=== PATIENT | female | born 1945 | race Caucasian/White ===

== ENCOUNTER 2023-11-30 16:24 | Emergency (ER) | payer OTHER, SELFPAY ==
[2023-11-30] VITALS (20 sets, daily range): BP systolic 93–150; BP diastolic 56–101; BMI 19.9
--- NOTE | 2023-11-30 17:02 | ED.GENMED ---
History of Present Illness
General
Chief Complaint: Musculo-Skeletal Complaint
Source: patient
Exam Limitations: none
Time Seen by Provider: 11/30/23 16:57
Travel History
Have you had any contact with someone who has COVID-19?: No
Do you have any symptoms of coronavirus? Fever > 100 degrees, chills, cough, shortness of breath, sore throat, loss of taste or smell, muscle aches, or headache?: No
History of Present Illness
History of Present Illness:
See MDM
Past History
Past History
ED Past Medical History: Hypercholesterolemia and Other (Kidney stones)
ED Past Surgical History: Other (Tubal ligation)
Patient has exhibited threatening behavior?: No
Social History
Tobacco: Smoker
Alcohol: None
Personal:
Living: with family
Employment: Retired
Family History
Family History: Other (Noncontributory)
Phy Exam
Physical Exam
Physical Exam:
See MDM
Course
Orders/Labs/Results
Orders:
Orders
11/30/23 16:54
Wrist, Right 3 Views [CR Wrist - Right Min 3 Views] Urgent
Comment:
Reason For Exam: injury
11/30/23 17:01
Oxycodone/Acetaminophen [Percocet 5/325] 1 tablet PO NOW STA
11/30/23 17:24
Propofol [Diprivan] 20 ml .ROUTE .STK-MED
11/30/23 17:35
Wrist, Right 2 Views CR [CR Wrist - Right Min 2 Views] Urgent
Comment:
Reason For Exam: post reduction
11/30/23 18:04
Tramadol HCl [Ultram] 25 mg PO NOW STA
Vital Signs
Initial and Last Documented VS:
Initial Vital Signs
Temp Pulse Resp BP Pulse Ox
97.7 F 65 18 116/56 96
11/30/23 16:26 11/30/23 16:26 11/30/23 16:26 11/30/23 16:26 11/30/23 16:26
Last Documented Vital Signs
Temp Pulse Resp BP Pulse Ox
98.2 F 74 26 93/78 91
11/30/23 18:30 11/30/23 18:25 11/30/23 18:25 11/30/23 18:25 11/30/23 18:25
Procedures
Moderate Sedation
ASA Risk Score: Class II
Chart and allergies reviewed: Yes
Consent for anesthesia obtained: Yes
Time out completed (validating right patient & procedure): Yes
History of difficult intubation: No
Airway free of obstruction: Yes
Patient has a gag reflex: Yes
Patient is able to open mouth: Yes
Patient has no dentures: Yes
Patient has no loose teeth: Yes
Medication administered by Provider during Moderate Sedation: IV Propofol (mg)
Total dose administered: 40
Time drug administered: 17:33
Start Time: 17:33
Stop Time: 17:43
Comment: Time out at 1732
Splinting/Sling Placement
Right Distal Radial Wrist:
Procedure completed by: Jass Hernandez DO
Pre-splint extermity exam: neurovascular intact
Type of splint: sugar-tong
Splint material: fiberglass
Normal distal neurovascular exam?: Yes
Joint/Fracture Reduction
Right Distal Radial Wrist:
Indication for procedure:: Distal radius fracture
Procedure completed by: Jass Hernandez DO
Consent form signed: Yes
Joint reduced: with anesthesia sedation
Injury was: closed
Further treatement: needs further treatment
Post reduction exam: stable
Capillary Refill: normal
Normal distal neurovascular exam?: Yes
Peripheral Pulses: radial (right): 2+
MDM/Problems Addressed
Differential Diagnosis Includes:
HPI and MDM Narrative:
78-year-old female presenting with right wrist pain. Patient left and landed on the right wrist. She denies numbness or tingling. She denies head trauma or head pain
On exam, patient has deformity and swelling to right wrist. It is neurovascular intact.
Physical exam
General: Well appearing and non-toxic
HEENT: protecting airway
Neck: appears supple
CV: No evidence of cyanosis
Resp: No accessory muscle use
Abd: Non-distended
Extremities: Dinner fork deformity to right wrist. Distal extremity neurovascularly intact
Neuro: alert
Psych: Normal affect
Skin: Intact
Problems Addressed including Acute and Chronic Conditions affecting care:
1. Right wrist fracture
Acuity: acute
Prognosis: stable
Details: Will obtain x-ray to assess whether or not patient needs reduction in the emergency department
Patient feeling better after reduction and feels comfortable going home
Updates
Differential Diagnosis (but not limited to): Wrist fracture, contusion
Testing considered: Hand x-ray
Drug therapy (if applicable): OTC meds, please see d/c instruction regarding Rx drugs
Amount and/or Complexity of Data Reviewed
Clinical info obtained from: Patient
External data reviewed: N/A
Labs I independently reviewed (but not limited to): N/A
Radiology: X-ray independently reviewed: Distal radius fracture
Pulse Ox: not hypoxic
EKG independently reviewed: N/A
Humidifier Maintenance Worker: N/A
Critical Care: N/A
Risk of Complication:
Social Determinants of health: Good social support
Discussed with other providers: N/A
Escalation of Care includes Admit/Obs: After being observed in the Emergency Department, pt stable for discharge.
Occasional wrong word or 'sound a like' substitutions may have occurred due to the inherent limitations of voice recognition software. Read the chart carefully and recognize, using context, where substitutions have occurred.
*Critical Care Note
Total Time (30-74mins, 75-104mins- exclusive of procedures): Not Applicable
ED Attending Note
-
Portions of this chart may have been created with voice recognition software.� Occasional wrong word or��sound alike� substitutions may have occurred due to the inherent limitations of voice recognition software.
Discharge Plan
Departure
Patient Disposition: Home (Routine Discharge)
Date of Disposition: 11/30/23
Time of Disposition: 18:44
Patient with high blood pressure during this ER visit?: No
Discharge Problem:
Distal radius fracture, right
Instructions: Wrist Fracture (DC), MODERATE SEDATION ADULT
Prescriptions:
New
tramadol 25 mg tablet
25 mg PO BID PRN (Reason: Pain) Qty: 14 0RF
No Action
simvastatin 20 MG tablet
20 mg PO QPM
tamsulosin 0.4 MG capsule
0.4 mg PO DAILY Qty: 7 0RF
multivitamin 1 EACH tablet
1 ea PO HS
zinc 50 MG tablet
50 mg PO HS
amoxicillin 500 mg tablet
1,000 mg PO BID 5 Days Qty: 20 0RF
azithromycin [Zithromax] 250 mg tablet
250 mg PO DAILY Qty: 6 0RF
Rx Instructions:
500mg po on day 1, then 250mg po qd x 4d
Referrals:
Omar Gamino MD [Active] -
Jona Mixon DO [Family Provider] -
Activity Restrictions/Additional Instructions:
Please return for any worsening symptoms.
You may return at any time if you have further concerns.
Please follow up with the orthopedistat the first available appointment, preferably this week.
You were given a prescription for narcotics. If you require this pain medicine, please take a daily [id number] stool softener to avoid constipation.
Thank you for choosing [facility].
Interventions
Interventions:
*Risk Screen - Suicide Last Done: 11/30/23 17:26
*General Assessment Last Done: 11/30/23 17:26
*Neglect/Abuse Screening Last Done: 11/30/23 17:26
ED-Musculoskeletal Assessment Last Done: 11/30/23 17:25
[2023-11-30] MEDS: ULTRAM 25 MG PO (18:24)
== END 2023-11-30 18:52 | disposition home or self-care (01) ==
LOC: EMR 16:24
PROVIDERS: EMERGENCY PHYSICIAN Student in an Organized Health Care Education/Training Program; FAMILY PHYSICIAN Family Medicine
DX: S52.501A Unspecified fracture of the lower end of right radius, initial encounter for closed fracture (principal); W19.XXXA Unspecified fall, initial encounter; F17.200 Nicotine dependence, unspecified, uncomplicated
CPT/HCPCS: 25605; 99285; 99152; 73100; 73110

== ENCOUNTER 2023-12-07 06:11 | Day surgery (SDC) | payer OTHER, SELFPAY ==
[2023-12-03 14:29] LABS: Hematocrit 42.5 % (37.0-47.0); Hemoglobin 14.8 g/dL (12.0-16.0); Mean Corp Hgb Conc. 34.8 g/dL (33.0-37.0); Mean Corpuscular Hgb 29.8 pg (27.0-31.0); Mean Corpuscular Volume 85.7 fL (81.0-99.0); Mean Platelet Volume 10.2 fL (7.4-10.4); Platelet Count 273 10^3/uL (130-400); Red Blood Cell Count 4.96 10^6/uL (4.20-5.40); Red Cell Dist. Width 13.5 % (11.5-14.5)
[2023-12-03 14:41] LABS: Blood Urea Nitrogen 15 mg/dl (7-17); Calcium 9.2 mg/dl (8.4-10.2); Carbon Dioxide 26 mmol/L (22-30); Chloride 106 mmol/L (98-107); Glucose 109 mg/dl (70-99); Potassium 4.2 mmol/L (3.5-5.1); Sodium 137 mmol/L (135-145); eGFR > 60.00
[2023-12-03 14:55] VITALS: BMI 19.0
[2023-12-07] VITALS (16 sets, daily range): BP systolic 134–153; BP diastolic 70–81; BMI 19.0
[2023-12-07] MEDS: NORMOSOL-R 1000 IV (07:11)
[2023-12-07] MEDS: CELEBREX 200 MG PO (07:11)
[2023-12-07] MEDS: TYLENOL 1000 MG PO (07:11)
[2023-12-07] MEDS: DILAUDID 0.25 MG IV ×2 (09:07→09:58)
== END 2023-12-07 12:15 | disposition home or self-care (01) ==
LOC: SDS 06:11
PROVIDERS: ATTENDING PHYSICIAN Orthopaedic Surgery; FAMILY PHYSICIAN Family Medicine
DX: S52.571A Other intraarticular fracture of lower end of right radius, initial encounter for closed fracture (principal); W19.XXXA Unspecified fall, initial encounter
CPT/HCPCS: 25515; 36415; 80048; 85027; 93005; C1713

== ENCOUNTER → 2024-02-14 14:16 | Outpatient (REF) | payer OTHER, SELFPAY | LOC: HWRAD 14:16 | PROVIDERS: ATTENDING PHYSICIAN Family Medicine | DX: M81.0 Age-related osteoporosis without current pathological fracture (principal) | CPT/HCPCS: 77080 ==

== ENCOUNTER → 2024-03-14 15:17 | Outpatient (REF) | payer OTHER, SELFPAY | LOC: HWRAD 15:17 | PROVIDERS: ATTENDING PHYSICIAN Nurse Practitioner Adult Health; FAMILY PHYSICIAN Family Medicine | DX: R91.1 Solitary pulmonary nodule (principal) | CPT/HCPCS: 71250 ==

== ENCOUNTER 2024-05-25 10:18 | Inpatient (IN) | payer OTHER, SELFPAY ==
[2024-05-24 11:17] VITALS: BP 129/67
--- NOTE | 2024-05-24 12:21 | ED.GENMED ---
History of Present Illness
General
Chief Complaint: Throat Problem
Source: patient
Exam Limitations: none
Time Seen by Provider: 05/24/24 11:48
Nursing documentation reviewed up to this point in time: agreed with
History of Present Illness
History of Present Illness:
79 yo female w h/o COPD, HLD, presents with two months of 'sinus problems' and sore throat. Had been on two regimens of antibiotics and steroids (last doses today and yesterday) with some improvement of the sinus symptoms but sore throat and
'feeling like there's a lump in there' pointing to sternal notch persists. Also voice is hoarse due to this problem. States she's had neg throat culture for strep.
Denies f/c/n/v/d/c. Has been able to swallow but sometimes has to spit it up for difficulty swallowing. Denies SOB, CP, abdominal pain.
Past History
Past History
ED Past Medical History: COPD, Hypercholesterolemia and Other (Kidney stones)
ED Past Surgical History: Orthopedic and Other (Tubal ligation)
Patient has exhibited threatening behavior?: No
Social History
Tobacco: Smoker
Alcohol: None
Personal:
Living: with family
Employment: Retired
Family History
Family History: Other (Noncontributory)
Review of Systems
Review of Systems
Allergies reviewed?: Yes
All Other Systems: ROS reviewed and negative except as documented in HPI and ROS
Constitutional: Denies fever or chills
EENT: Reports sore throat
Respiratory: Denies cough or trouble breathing
Cardiac: Denies chest pain
ABD/GI: Denies abdominal pain, nausea, vomiting or diarrhea
Musculoskeletal: Reports no symptoms
Skin: Reports no symptoms
Neurological: Reports no symptoms
Phy Exam
Physical Exam
Physical Exam:
GENERAL: No acute distress. A&Ox3.
CONSTITUTIONAL: Afebrile.
EYES: PERRL, conjunctivae normal
Neck: Supple, no palpable masses
ENMT: moist mucus membranes, Pharynx nl, speaking in hoarse voice. Swallowing well.
RESPIRATORY: Regular respirations, nonlabored, lungs clear.
CARDIOVASCULAR: Regular rate and rhythm, no murmurs, no rubs.
GI: Soft, nontender
MUSCULOSKELETAL: Moves with ease. Well perfused.
SKIN: Warm, dry, pink
PSYCH: Normal mood and affect. Well kept, interactive and appropriate
NEUROLOGIC: Awake, alert and oriented. No focal neurological deficits
Course
Orders/Labs/Results
Orders:
Orders
05/24/24
DIETARY CONSULT Routine
Reason for Consult: wt loss
05/24/24 12:24
Complete Blood Count/With Diff Urgent
Comprehensive Metabolic Panel Urgent
05/24/24 13:34
RF Esophagus-Double Contrast Urgent
Comment:
Reason For Exam: difficulty and pain with swallowing
05/24/24 14:00
0.9% Sodium Chloride 500 ml [Nss] 500 ml IV BOLUS
05/24/24 15:10
CT Neck With Iv Contrast Urgent
Comment:
Reason For Exam: 'lump' in throat at sternal notch, diff swallowing
05/24/24 17:23
ENT CONSULT Urgent
Consulting Provider: Jarrett Montalvo
Was physician already notified: Yes
Reason for Consult: larygeal area mass, potential airway compromise
05/24/24 17:49
Admit/Transfer Patient As Directed
Co-Sign Provider:
Level of Care: Observation services
Assign to:: Medical/Surgical
Physician / Group: aleksandra
Diagnosis: laryngeal mass
Code Status As Directed
Resuscitation Status: Full Code
PRN Pain Medication Management As Directed
May give lesser potent ordered pain med per pt: Yes
preference::
Protocol:: Medication orders for pain may be administered in a
manner that supports deferring to patient preference
when the pt is:
- Requesting an ordered lesser potent pain medication.
Least to most potent pain medications are defined
as: acetaminophen < NSAID < tramadol < opioids
(morphine, oxycodone, hydromorphone).
- Requesting a lesser dose of the same medication IF
ORDERED.
- Requesting a less intrusive route of administration
if both routes are prescribed by the provider (PO <
IV).
05/24/24 19:34
Calcium Carbonate [Oscal Bam 500] 500 mg PO QPM
05/24/24 19:34
Activity As Directed
Activity Level: As Tolerated
Vital Signs As Directed
Frequency: Per unit guidelines
DX Deep Vein Thrombosis Video Routine
05/24/24 19:45
Atorvastatin [Lipitor] 10 mg PO QPM
05/24/24 20:00
Flush (0.9% Sodium Chloride) [Flush (Nss)] See Dose Instructions IV PER PROTOCOL
Heparin 5,000 units SC Q12
Zinc Sulfate 220 mg PO QPM
05/24/24 23:59
Jonathan- Npo [Jonathan- Nothing by mouth] As Directed
Comment: NPO after midnight
05/25/24 Breakfast
NPO
Allow oral meds: Yes
Allow clear liquids: Sips of Clears
05/25/24 08:03
Complete Blood Count/With Diff IN AM
Comprehensive Metabolic Panel IN AM
05/25/24 Lunch
NPO
Allow oral meds: No
Allow clear liquids: No
NPO with Ice Chips: No
05/25/24 10:31
PT/INR [Prothrombin Time] Urgent
Is patient on Coumadin/Warfarin?: No
Abnormal Lab Results
05/24/24 05/25/24
12:24 08:03
WBC 20.1 H 10^3/uL 14.9 H 10^3/uL
(4.8-10.8) (4.8-10.8)
RBC 5.45 H 10^6/uL
(4.20-5.40)
Hgb 16.3 H g/dL
(12.0-16.0)
Hct 47.5 H %
(37.0-47.0)
Abs Immat Gran (auto) 0.3 H 10^3/uL 0.3 H 10^3/uL
(0-0.05) (0-0.05)
Absolute Neuts (auto) 17.3 H 10^3/uL 9.6 H 10^3/uL
(1.4-6.5) (1.4-6.5)
Absolute Lymphs (auto) 3.7 H 10^3/uL
(1.2-3.4)
Absolute Monos (auto) 0.8 H 10^3/uL 1.2 H 10^3/uL
(0.1-0.6) (0.1-0.6)
Immature Gran % 1.6 H % 1.8 H %
(0-0.5) (0-0.5)
Neutrophils % 86.2 H %
(42.2-75.2)
Lymphocytes % 7.9 L %
(20.5-51.1)
Carbon Dioxide 31 H mmol/L 31 H mmol/L
(22-30) (22-30)
BUN 27 H mg/dl 18 H mg/dl
(7-17) (7-17)
Glucose 131 H mg/dl
(70-99)
Total Protein 6.0 L g/dl 5.6 L g/dl
(6.3-8.2) (6.3-8.2)
Albumin 3.4 L g/dl
(3.5-5.0)
05/25/24 08:03
05/25/24 08:03
Vital Signs
Initial and Last Documented VS:
Initial Vital Signs
Temp Pulse Resp BP Pulse Ox
98.4 F 52 18 129/67 96
05/24/24 11:17 05/24/24 11:17 05/24/24 11:17 05/24/24 11:17 05/24/24 11:17
Last Documented Vital Signs
Temp Pulse Resp BP Pulse Ox
98.8 F 87 19 141/95 97
05/25/24 19:34 05/25/24 23:00 05/25/24 23:00 05/25/24 23:00 05/25/24 23:00
MDM/Problems Addressed
Differential Diagnosis Includes:
esophageal stricture, mass, trachiitis
MDM/Problems Addressed:
79 yo female w h/o COPD, HLD, presents with two months of 'sinus problems' and sore throat. Had been on two regimens of antibiotics and steroids (last doses today and yesterday) with some improvement of the sinus symptoms but sore throat and
'feeling like there's a lump in there' pointing to sternal notch persists. Also voice is hoarse due to this problem. States she's had neg throat culture for strep.
Denies f/c/n/v/d/c. Has been able to swallow but sometimes has to spit it up for difficulty swallowing. Denies SOB, CP, abdominal pain.
NAD
Voice hoarse, swallowing well, pharynx normal
CBC: WBC 20.0 most likely due to steroid use, just finished her second regimen today, also due to dehydration (has no infectious symptoms and finished second regimen of antibiotics yesterday)
CMP: BUN 27
IV fluids ordered
3:15 p.m.
Esophagram radiology report read: IMPRESSION: Tracheal aspiration with cough. Video swallow study performed by speech pathology is recommended. Unremarkable evaluation of the esophagus.
Awaiting Ct scan w IV contrast to assess for neck mass, retropharyngeal abscess
Pt informed. She is stable, appears comfortable and OK with plan
5:[address] neck w IV contrast: Phone call from Radiology Dr. Pollard saying pt has a 2.6 cm mass in laryngeal area. At risk for airway compromise.
Hospitalist notified of admission, ENT also notified and ENT consult in.
Pt notified, continues with no airway compromise. Was appreciative and thankful for the care.
*Critical Care Note
Total Time (30-74mins, 75-104mins- exclusive of procedures): Not Applicable
ED Attending Note
-
Portions of this chart may have been created with voice recognition software.� Occasional wrong word or��sound alike� substitutions may have occurred due to the inherent limitations of voice recognition software.
Discharge Plan
Departure
Patient Disposition: Admit
Date of Disposition: 05/24/24
Time of Disposition: 17:16
Admit to: Med/Surg
Presentation/result/management discussed w/ accepting MD/DO: Hospitalist
Condition: Good
Discharge Problem:
Dysphagia, Laryngeal mass
Interventions
Interventions:
*General Assessment Last Done: 05/24/24 11:25
*Neglect/Abuse Screening Last Done: 05/24/24 11:25
ED- Fall Risk Assessment Last Done: 05/24/24 12:29
*Nursing Disposition Last Done: 05/24/24 19:30
ED-EENT Assessment Last Done: 05/24/24 12:29
ED- Pulmonary Assessment Last Done: 05/24/24 12:29
Discharge Date and Time
Discharge Date/Time: 05/24/24 19:30
[2024-05-24 12:23] VITALS: BP 122/79
[2024-05-24 12:42] LABS: % Basophils 0.4 % (0-2); % Eosinophils 0.1 % (0-6); % Immature Granulocytes 1.6 % (0-0.5); % Lymphocytes 7.9 % (20.5-51.1); % Monocytes 3.8 % (1.7-9.3); % Neutrophils 86.2 % (42.2-75.2); Absolute Basophils 0.1 10^3/uL (0-0.2); Absolute Immature Granulocytes 0.3 10^3/uL (0-0.05); Absolute Lymphocytes 1.6 10^3/uL (1.2-3.4); Absolute Monocytes 0.8 10^3/uL (0.1-0.6); Absolute Neutrophils 17.3 10^3/uL (1.4-6.5); Hematocrit 47.5 % (37.0-47.0); Hemoglobin 16.3 g/dL (12.0-16.0); Mean Corp Hgb Conc. 34.3 g/dL (33.0-37.0); Mean Corpuscular Hgb 29.9 pg (27.0-31.0); Mean Corpuscular Volume 87.2 fL (81.0-99.0); Mean Platelet Volume 9.6 fL (7.4-10.4); Nucleated Red Blood Cells % 0 %; Platelet Count 354 10^3/uL (130-400); Red Blood Cell Count 5.45 10^6/uL (4.20-5.40); Red Cell Dist. Width 14.5 % (11.5-14.5); White Blood Cell Count 20.1 10^3/uL (4.8-10.8)
[2024-05-24 13:00] VITALS: BP 123/81
[2024-05-24 13:04] LABS: ALT (SGPT) 16 U/L (0-35); AST (SGOT) 18 U/L (14-36); Albumin 3.7 g/dl (3.5-5.0); Alkaline Phosphatase 72 U/L (38-126); Blood Urea Nitrogen 27 mg/dl (7-17); Calcium 9.8 mg/dl (8.4-10.2); Carbon Dioxide 31 mmol/L (22-30); Chloride 100 mmol/L (98-107); Glucose 131 mg/dl (70-99); Potassium 4.2 mmol/L (3.5-5.1); Sodium 136 mmol/L (135-145); Total Bilirubin 0.6 mg/dl (0.2-1.3); eGFR > 60.00
[2024-05-24] MEDS: NSS 500 IV (14:30)
--- NOTE | 2024-05-24 17:51 | HPS.HSE ---
Family Physician
-
Family Physician: Jona Mixon
Chief Complaint
-
sore throat
History of Present Illness
79-year-old female with past medical history of COPD, hyperlipidemia, nephrolithiasis presenting with 2 months of sinus problems and sore throat. She was initially having nasal discharge and sinus pressure and sore throat. Patient has been treated
with 2 courses of antibiotics and steroids and she last finished antibiotic today and steroid yesterday with improvement in the sinus symptoms. However she still feels the throat is sore and there is a lump in the throat. She also complains of
voice hoarseness. She is having some mild shortness of breath. She is having some difficulty swallowing but able to eat and drink but sometimes spitting up. She denies any fevers or chills, nausea vomiting or diarrhea or constipation.
She smokes 1 pack of cigarettes per day for 60 years and quit 2 weeks ago. She denies alcohol use.
Medical History
Past Medical History
Past Medical History: Reports Other (COPD, hyperlipidemia, nephrolithiasis)
Past Surgical History: Reports Other (Orthopedic and Other (Tubal ligation))
Social History
Tobacco: Former Smoker
Alcohol: None
Drug: None
Family History
Family History: Not pertinent
Allergies / Home Medications
Allergies reflects when Allergies were last updated in [employer].
Home Medications with original date entered in [employer]
Allergy/Medication List:
Allergies
Allergy/AdvReac Type Severity Reaction Status Date / Time
No Known Allergies Allergy Verified 05/24/24 11:23
Home Medications
simvastatin 20 mg tablet 20 mg PO QPM 01/17/19
calcium carbonate 500 mg PO QPM 05/24/24
zinc sulfate 50 mg zinc (220 mg) tablet 50 mg PO QPM 05/24/24
Review of Systems
-
History Source: Patient
A 12 point ROS was completed and negative except as noted: Yes
Constitutional: Reports No Symptoms
EENT: Reports No Symptoms and Other
Respiratory: Reports No Symptoms
Cardiac: Reports No Symptoms
Abdomen/GI: Reports No Symptoms
: Reports No Symptoms
Musculoskeletal: Reports No Symptoms
Skin: Reports No Symptoms
Neurological: Reports No Symptoms
Endocrine: Reports No Symptoms
Hematologic/Lymphatic: Reports No Symptoms
Psych: Reports No Symptoms
Physical Exam
Vital Signs
Vital Signs
Temp Pulse Resp BP Pulse Ox
98.4 F 52 18 123/81 95
05/24/24 11:17 05/24/24 11:17 05/24/24 11:17 05/24/24 13:00 05/24/24 13:45
Physical Exam
General: Well Developed, Well Nourished and No Apparent Distress
HEENT: NormoCephalic, Moist mucous membranes, Atraumatic and Other (neck mass )
Respiratory: Clear
Cardiac: S1/S2 and Regular Rhythm; No Murmur or Rub
GI: Soft, Non Tender, Non Distended and Normal Bowel Sounds; No Organomegaly
Rectal: Deferred by Provider
Musculoskeletal: No Clubbing, No Cyanosis and No Edema
Skin: No Rash
Neuro: Nonfocal/grossly intact
Laboratory Results
-
05/24/24 12:24
05/24/24 12:24
Laboratory Results
Total Bilirubin 0.6 mg/dl (0.2-1.3) 05/24/24 12:24
AST 18 U/L (14-36) 05/24/24 12:24
ALT 16 U/L (0-35) 05/24/24 12:24
Alkaline Phosphatase 72 U/L (38-126) 05/24/24 12:24
Data Reviewed
-
Lab Data: Labs Reviewed by me
Impression/Plan
-
IMPRESSION:
PLAN:
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
-CT neck shows 2.5 cm soft tissue mass extending caudally from the larynx with encroachment upon and narrowing of the upper trachea/tracheal narrowing and extending between the right and left lobes of the thyroid
-Esophagus x-ray is unremarkable
-ENT consulted
-Clear liquid diet for now
# Resolved sinusitis
-No sinus symptoms at this time
# History of significant smoking
-Quit smoking 2 weeks ago
COPD
Hyperlipidemia
-Continue statin
History of nephrolithiasis
Osteoporosis
Full code
DVT prophylaxis heparin
Clear liquid diet
[2024-05-24 19:30] VITALS: BP 125/82
--- NOTE | 2024-05-24 19:39 | PTCARENOTE ---
Pt received from ED to [facility]-. Pt oriented to room and call holder.
[2024-05-24 19:50] VITALS: BP 151/77
--- NOTE | 2024-05-24 20:08 | CON.MD ---
Consultation - Medical
-
Chief complaint: stridor and dysphagia
History of present illness: This patient is an 79-year-old woman, former smoker, who presents with a 2-month history of stridor and dysphagia. The stridor is intermittent. She has had significant difficulty swallowing and has lost a good deal of
weight. She is not in any respiratory distress currently. She had a CT scan of the neck in the emergency room and was found to have what appears to be a 2.5 cm tumor in her pharynx or trachea. It may also originate in the larynx. The patient
otherwise has a fairly negative past medical history. She has hypercholesterolemia. I was asked to see her with regards to her stridor and dysphagia.
Past medical history:
Medical problems: Stridor, dysphagia, hypercholesterolemia, laryngeal mass
Allergies: No known drug allergies
Medications: Calcium carbonate 500 mg p.o. every afternoon, simvastatin 20 mg p.o. every afternoon, zinc sulfate 50 mg p.o. every afternoon
Hospitalizations: The patient is currently hospitalized for dysphagia and stridor with an apparent laryngeal, hypopharyngeal or esophageal tumor
Family history: Asked and is noncontributory
Social history: The patient is a former smoker
Review of systems: Positive for dysphagia, negative for chest pain, negative for abdominal pain, positive for stridor, negative for respiratory distress
Physical examination:
Head: Atraumatic normocephalic
Eyes: Extraocular movements are intact, pupils are equal and reactive to light
Nose: Deviated septum but otherwise clear
Oral cavity: No significant mucosal abnormalities noted
Neck: Supple without adenopathy
Ears: Clear
Cranial nerves: 2 through 12 are intact
Salivary glands: Normal to palpation without evidence of infection
Thyroid gland: Normal to palpation
Procedure: Flexible laryngoscopy was used to evaluate the hypopharynx and larynx: Examination was performed with a flexible laryngoscope. The patient may have some narrowing of the upper part of the trachea. There is no obvious tumor although
there is some fullness in the base of tongue on the right side. Vocal cord motion is normal. No bleeding was seen.
Impression: This 79-year-old former smoker presents with a 2-month history, at least, of dysphagia with significant weight loss. She has also had stridor but has no respiratory distress.
Plan: I spoke with the patient that she appears to have a tumor in a rather delicate area as it is causing both airway compromise and difficulty swallowing. This probably represents a cancer. She will require tracheotomy to secure her airway and
direct laryngoscopy and esophagoscopy with biopsies. She understands there is a risk of loss of airway, chipped or broken teeth, esophageal perforation and need for further treatment. She understands we will be able to determine her treatment
until we know the extent of the tumor, and the pathology.
[2024-05-24] MEDS: LIPITOR 10 MG PO (20:26)
[2024-05-24] MEDS: OSCAL CAL 500 500 MG PO (20:26)
[2024-05-24] MEDS: HEPARIN 5000 UNITS SC (20:26)
[2024-05-24] MEDS: ZINC SULFATE 220 MG PO (20:26)
[2024-05-24 20:27] VITALS: BMI 17.1
[2024-05-24 23:02] VITALS: BP 117/58
[2024-05-25] VITALS (30 sets, daily range): BP systolic 113–159; BP diastolic 75–97; BMI 17.1
[2024-05-25 08:30] LABS: % Basophils 0.5 % (0-2); % Eosinophils 0.7 % (0-6); % Immature Granulocytes 1.8 % (0-0.5); % Lymphocytes 24.8 % (20.5-51.1); % Monocytes 7.7 % (1.7-9.3); % Neutrophils 64.5 % (42.2-75.2); Absolute Basophils 0.1 10^3/uL (0-0.2); Absolute Eosinophils 0.1 10^3/uL (0-0.7); Absolute Immature Granulocytes 0.3 10^3/uL (0-0.05); Absolute Lymphocytes 3.7 10^3/uL (1.2-3.4); Absolute Monocytes 1.2 10^3/uL (0.1-0.6); Absolute Neutrophils 9.6 10^3/uL (1.4-6.5); Hematocrit 43.6 % (37.0-47.0); Hemoglobin 14.9 g/dL (12.0-16.0); Mean Corp Hgb Conc. 34.2 g/dL (33.0-37.0); Mean Corpuscular Volume 87.9 fL (81.0-99.0); Mean Platelet Volume 9.6 fL (7.4-10.4); Nucleated Red Blood Cells % 0 %; Platelet Count 352 10^3/uL (130-400); Red Blood Cell Count 4.96 10^6/uL (4.20-5.40); Red Cell Dist. Width 14.5 % (11.5-14.5); White Blood Cell Count 14.9 10^3/uL (4.8-10.8)
[2024-05-25] MEDS: HEPARIN 5000 UNITS SC ×2 (08:31→21:04)
[2024-05-25 09:09] LABS: ALT (SGPT) 23 U/L (0-35); AST (SGOT) 29 U/L (14-36); Albumin 3.4 g/dl (3.5-5.0); Alkaline Phosphatase 76 U/L (38-126); Blood Urea Nitrogen 18 mg/dl (7-17); Calcium 9.5 mg/dl (8.4-10.2); Carbon Dioxide 31 mmol/L (22-30); Chloride 101 mmol/L (98-107); Estimated Creatinine Clearance 47 ml/min; Glucose 92 mg/dl (70-99); Potassium 4.2 mmol/L (3.5-5.1); Sodium 135 mmol/L (135-145); Total Bilirubin 0.5 mg/dl (0.2-1.3); Total Protein 5.6 g/dl (6.3-8.2); eGFR > 60.00
--- NOTE | 2024-05-25 10:19 | W.PN.HOSP.TC ---
Today's Communication/Plan
-
N.p.o.
Add DuoNebs as needed
Assessment / Plan
Assessment / Plan
Gen-AAOx3, NAD
HEENT-NC, AT, anicteric, clear oral mm
Neck-supple
CV-reg, no M, +S1/S2
Lungs-clear B/L
Abd-soft, NT, ND
Ext-no edema
Musculoskeletal-no cyanosis, clubbing
Skin-warm and dry
Neuro-grossly non-focal
Psych-calm, cooperative
Laryngeal mass -presentation with stridor, dysphagia, weight loss. Highly suspicious for malignancy. Appreciate ENT input. Keep n.p.o. for OR today for anticipated tracheotomy, direct laryngoscopy, esophagoscopy with biopsies.
CT of the neck confirms a 2.5 cm soft tissue mass extending caudally from the larynx with encroachment upon and narrowing of the upper trachea.
Recently treated with several courses of steroids and antibiotics by her primary care doctor without improvement.
.
Tobacco dependence -[id number] smoking history. Apparently quit 2 weeks ago.
COPD without exacerbation -she has not refilled her inhalers. Add DuoNebs as needed. Not on home oxygen.
Hyperlipidemia
Hx nephrolithiasis
Osteoporosis
Full code
Anticipated Discharge: > 48 hours
Subjective/Interval History
-
Date of Service: May 25, 2024
Patient seen and examined. Complaining of stridor. Sleeping when I walked in.
Objective Data
-
Labs:
Laboratory Results
05/25/24 05/25/24
08:03 10:13
WBC 14.9 H
Hgb 14.9
Hct 43.6
Plt Count 352
PT Pending
INR Pending
Sodium 135
Potassium 4.2
Chloride 101
Carbon Dioxide 31 H
BUN 18 H
Creatinine 0.6
Glucose 92
Calcium 9.5
Total Bilirubin 0.5
AST 29
ALT 23
Alkaline Phosphatase 76
Vital Signs:
Vital Signs
Temp Pulse Resp BP Pulse Ox
97.9 F 78 18 113/75 96
05/25/24 07:30 05/25/24 07:30 05/25/24 07:30 05/25/24 07:30 05/25/24 07:30
I&O
05/24/24 05/25/24 05/26/24
06:59 06:59 06:59
Intake Total 240 / 240
Balance 240 / 240
Review of Systems
-
History Source: Patient
All other systems: Reviewed and negative
[2024-05-25 11:05] LABS: INR 0.89
--- NOTE | 2024-05-25 16:20 | RESPNOTE ---
inner cannula placed at this time.
patient on 28% TC- SPO2- 98%, HR 85, RR 20.
patient currently coughing up some clear sputum with some americo red blood- pt is s/p new trach.
additional 6 shiley and inner cannula ordered from [facility].
--- NOTE | 2024-05-25 16:45 | PTCARENOTE ---
Received pt @ 1600 from OR s/p new tracheostomy. Pt. drowsy, awakens to verbal stimuli; nods head/mouths words approp; oriented x3. Also able to communicate approp via writing. Denies pain. SR on monitor. SpO2 95% on TC 5L/28%. New tracheostomy
in place, #6 cuffed Shiley; inner cannula placed by RT; extra trach @ bedside. Sutures in place. Clear/bloody tinged oral secretions; bloody secretions from trach. Productive cough, able to bring secretions up. +BS, soft, nt; strict NPO
maintained. Cont b/b. #20 R/L AC patent, dressing c/d/i. Post op blood work sent to lab. Family @ bedside; pt. and fam updated on plan of care. Instructed on how to report care concerns and call gallo calixto in reach.
[2024-05-25 16:46] LABS: Venous Blood Gas B.E. 4.8 mmol/L (-4 to +4); Venous Blood Gas HCO3 32.2 mmol/L (22-27); Venous Blood Gas O2 Sat % 78.7 %; Venous Blood Gas pCO2 57 mmHg (35-48); Venous Blood Gas pH 7.36 (7.32-7.43); Venous Blood Gas pO2 45 mmHg (30-50)
[2024-05-25 16:48] LABS: Hematocrit 45.3 % (37.0-47.0); Hemoglobin 15.5 g/dL (12.0-16.0); Mean Corp Hgb Conc. 34.2 g/dL (33.0-37.0); Mean Corpuscular Hgb 29.5 pg (27.0-31.0); Mean Corpuscular Volume 86.3 fL (81.0-99.0); Mean Platelet Volume 9.6 fL (7.4-10.4); Platelet Count 365 10^3/uL (130-400); Red Blood Cell Count 5.25 10^6/uL (4.20-5.40); Red Cell Dist. Width 14.3 % (11.5-14.5); White Blood Cell Count 20.2 10^3/uL (4.8-10.8)
[2024-05-25 17:08] LABS: ALT (SGPT) 23 U/L (0-35); AST (SGOT) 26 U/L (14-36); Albumin 3.8 g/dl (3.5-5.0); Alkaline Phosphatase 84 U/L (38-126); Blood Urea Nitrogen 16 mg/dl (7-17); Calcium 9.4 mg/dl (8.4-10.2); Carbon Dioxide 27 mmol/L (22-30); Chloride 101 mmol/L (98-107); Estimated Creatinine Clearance 47 ml/min; Glucose 132 mg/dl (70-99); Magnesium 2.2 mg/dl (1.6-2.3); Phosphorus 3.4 mg/dl (2.5-4.5); Sodium 135 mmol/L (135-145); Total Bilirubin 0.8 mg/dl (0.2-1.3); Total Protein 6.2 g/dl (6.3-8.2); eGFR > 60.00
--- NOTE | 2024-05-25 17:10 | PTCARENOTE ---
Spoke at length with patient's daughter, Michelle. Called patient's primary contact, brother, Tod to verify if it is ok to give updates. Explained to the patient's daughter that the patient is moved to the ICU for closer monitoring. Patient's
daughter, Cee, called as well for an update and recommended to phone ICU to talk with receiving RN caring for the patient.
--- NOTE | 2024-05-25 17:55 | CON.INTV ---
Consultation
Consultation Request
Date/Time Consultation Requested: 05/25/2024
Date/Time Consultation Performed: 05/25/2024 - 1625
Requesting Provider: Dr. Randle
Performing Provider: Dr. Field
Reason for Consultation: s/p trach
Medical History
-
Chief Complaint: Sore throat
History of Present Illness:
79-year-old female active tobacco smoker with a past medical history of COPD, restrictive lung defect, hyperlipidemia, and nephrolithiasis who presents with sore throat. She was recently treated for sinus infection with antibiotics and her sore
throat has persisted. Her PCP advised her to come to the ER. She was afebrile in the ER to 98.4 �F, pulse rate 52, breathing at 18 breaths/min, BP 129/67, and saturating 96% on room air. Labs showed leukocytosis to 20.1. Double contrast
esophageal XR showed suspected tracheal aspiration with cough and recommended video swallow study. Neck CT showed a 2.5 cm soft tissue mass extending caudally from the larynx with encroachment upon the narrowing of the upper trachea, causing
tracheal narrowing. This is concerning for malignancy. She was given IVF with NS 0.9% x 500cc. She was admitted to the hospitalist service and ENT was consulted who recommended tracheostomy to secure airway with direct laryngoscopy/esophagoscopy
for biopsy of this mass seen on neck CT. She underwent tracheostomy today and then transferred to the ICU postoperatively for further care. Critical care services consulted for additional management/recommendations.
When I saw the patient she was in no acute distress, saturating 94% on room air via tracheostomy. She denies any pain, headache, chest pain, fevers or chills.
Of note, patient follows with us in the [facility] office with Dr. Rooney, last visit on 05/25/2023. Patient follows with us for COPD, history of 9 mm RUL lung nodule, chronic bronchitis and tobacco use. Last full PFT on 05/25/2023 showing moderate COPD
with mild restrictive lung defect, with moderate gas exchange capacity defect with DLco: 47% (which was mild when accounting for alveolar volume involving gas exchange; DLco/VA: 64%). She was advised to follow-up in 6 months.
PMHx: Moderate COPD, mild restrictive lung defect, hyperlipidemia, nephrolithiasis, history of pneumonia, tobacco use disorder
PSHx: Tubal ligation, right ureteroscopy/laser lithotripsy + stent (January 05), right distal radius ORIF (11/2023)
Past Medical History
Past Medical History: Other (Above as per HPI)
Past Surgical History: Other (Above as per HPI)
Social History
Tobacco: Smoker (0.75 PPD, quit in May 2022, and then restarted smoking 0.25 PPD in February 2023)
Alcohol: None
Drug: None
Family History
Family History: CAD (Brother: History of heart attack), Cancer (Mother; brother: History of throat cancer) and Other (Son (): History of kidney failure, diabetes, heart attack and skin cancer)
Allergies / Home Medications
Allergies
Allergy/AdvReac Type Severity Reaction Status Date / Time
No Known Allergies Allergy Verified 05/24/24 11:23
Home Medications
�Medication �Instructions �Recorded �Confirmed �Last Taken �Type
simvastatin 20 mg tablet 20 mg PO QPM 01/17/19 05/24/24 05/23/24 History
calcium carbonate 500 mg PO QPM 05/24/24 05/24/24 05/23/24 History
zinc sulfate 50 mg zinc (220 mg) 50 mg PO QPM 05/24/24 05/24/24 05/23/24 History
tablet
Review of Systems
-
History Source: Patient
All other systems: Negative unless noted
Vitals / Labs / Diagnostic Testing
Vital Signs
Temp Pulse Resp BP Pulse Ox
98.3 F 69 16 149/80 95
05/25/24 15:58 05/25/24 16:45 05/25/24 16:45 05/25/24 16:45 05/25/24 16:46
Lab Data
05/25/24 16:39
05/25/24 16:39
Laboratory Results
05/25/24
10:31
PT 12.0
INR 0.89
Diagnostic Testing:
Physical Exam
-
HEENT: Normocephalic and Anicteric
Cardiovascular: S1/S2 and Peripheral Edema (negative)
Respiratory: Wheeze (negative), Rales (negative), Rhonchi (negative), Non-Labored Respirations and Other (Tracheostomy (+))
GI: Soft, Non Distended, Non Tender and Normal Bowel Sounds
Neurology: Awake and Alert
Skin: Warm and Dry
General: Respiratory Distress (negative), Chills (negative) and Sweats (negative)
Assessment
-
Assessment: 79-year-old female active tobacco smoker with a past medical history of COPD, restrictive lung defect, hyperlipidemia, and nephrolithiasis who presents with sore throat. She was recently treated for sinus infection with antibiotics and
her sore throat has persisted. Her PCP advised her to come to the ER. She was afebrile in the ER to 98.4 �F, pulse rate 52, breathing at 18 breaths/min, BP 129/67, and saturating 96% on room air. Labs showed leukocytosis to 20.1. Double contrast
esophageal XR showed suspected tracheal aspiration with cough and recommended video swallow study. Neck CT showed a 2.5 cm soft tissue mass extending caudally from the larynx with encroachment upon the narrowing of the upper trachea, causing
tracheal narrowing. This is concerning for malignancy. She was given IVF with NS 0.9% x 500cc. She was admitted to the hospitalist service and ENT was consulted who recommended tracheostomy to secure airway with direct laryngoscopy/esophagoscopy
for biopsy of this mass seen on neck CT. She underwent tracheostomy today and then transferred to the ICU postoperatively for further care. Critical care services consulted for additional management/recommendations.
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
Impression:
#2.5 cm soft tissue neck mass encroaching upon upper trachea causing tracheal narrowing, concerning for malignancy s/p tracheostomy (POD #0)
#Leukocytosis
#Chronic hypercapnic respiratory failure (venous blood gas postoperatively today shows pCO2 57, pH 7.36)
#Moderate COPD
#Mild restrictive lung defect
#Tobacco use disorder
Plan:
- Venous blood gas checked showing chronic hypercapnia
- Trend with repeat blood gas in the morning to assess for stability
- Patient was saturating 94% - 95% on room air postoperatively. Apply humidified air via trach collar to avoid any mucous plugging from developing
- Additional postoperative management as per ENT
- pain control
- prn nebulized bronchodilators
- MANNEQUIN WIG MAKER eval tomorrow to assess if pt can tolerate PO meds +/- diet; keep NPO for now
- Follow-up pathology from today's OR
- Nicotine patch
- Monitor Hb and transfuse to keep Hb >7 g/dL, plt>50k (given post-operative status)
- Maintain SpO2 >88-94%
- Maintain MAP>65
- Replete electrolytes with K>4, Mg>2
- Maintain euglycemia with goal BG 140-180
- Incentive spirometer
- DVT ppx
Patient previously followed with us in the [facility] office with Dr. Rooney -last office visit on 05/25/2023. We will arrange for follow-up with our office s/p discharge.
Continue with ICU level care for this postoperative patient with fresh tracheostomy.
Total time spent today was 75 minutes for this encounter. Time includes reviewing laboratory test/imaging results, reviewing pertinent medical records, obtaining and reviewing medical history, performing an appropriate exam, ordering medications,
tests and procedures. Time also includes documentation of this encounter, coordinating patient care and communicating with other healthcare professionals. Total time does not include separately billed tests performed on this date of service.
--- NOTE | 2024-05-25 20:30 | PTCARENOTE ---
on assessment pt alert and able to nod appropriately and mouth words, denies pain and SOB, SR on the monitor, new trach placed today, sutured in with slit gauze, bloody drainage noted, respiratory at bedside to assess pt, strong cough, able to bring
up some secretions orally, on trach collar, 97%, NPO, purwick in place, call holder in reach.
[2024-05-26] VITALS (33 sets, daily range): BP systolic 113–163; BP diastolic 66–126; PULSE 80; O2SAT 96
--- NOTE | 2024-05-26 01:00 | PTCARENOTE ---
pt c/o slight SOB and asked to be suctioned, respiratory at bedside to suction pt and give PRN breathing treatment, pt states she feels 'better', call holder in reach
[2024-05-26] MEDS: NSS 1000 IV ×2 (02:05→17:29)
[2024-05-26] MEDS: DILAUDID 0.5 MG IV (02:06)
--- NOTE | 2024-05-26 04:39 | PTCARENOTE ---
no changes from prior assessment, pt resting in bed, remains on trach collar, unable to void, st cath order placed, bladder scan was 419cc. call holder in reach
[2024-05-26 04:41] LABS: B.E. 2.4 mmol/L; HCO3 27.2 mmol/L (21-28); O2 Saturation % 98.4 % (94-98); PCO2 42 mmHg (32-35); PO2 86 mmHg (83-108); pH 7.42 (7.35-7.45)
[2024-05-26 05:32] LABS: Hematocrit 41.3 % (37.0-47.0); Hemoglobin 14.4 g/dL (12.0-16.0); Mean Corp Hgb Conc. 34.9 g/dL (33.0-37.0); Mean Corpuscular Hgb 29.4 pg (27.0-31.0); Mean Corpuscular Volume 84.5 fL (81.0-99.0); Mean Platelet Volume 9.7 fL (7.4-10.4); Platelet Count 340 10^3/uL (130-400); Red Blood Cell Count 4.89 10^6/uL (4.20-5.40); Red Cell Dist. Width 14.2 % (11.5-14.5); White Blood Cell Count 16.9 10^3/uL (4.8-10.8)
[2024-05-26 06:08] LABS: Blood Urea Nitrogen 19 mg/dl (7-17); Calcium 8.9 mg/dl (8.4-10.2); Carbon Dioxide 26 mmol/L (22-30); Chloride 102 mmol/L (98-107); Estimated Creatinine Clearance 47 ml/min; Glucose 128 mg/dl (70-99); Magnesium 2.1 mg/dl (1.6-2.3); Phosphorus 4.6 mg/dl (2.5-4.5); Potassium 4.7 mmol/L (3.5-5.1); Sodium 133 mmol/L (135-145); eGFR > 60.00
[2024-05-26] MEDS: HEPARIN 5000 UNITS SC (07:47)
--- NOTE | 2024-05-26 08:05 | W.PN.INTV ---
Today's Communication / Plan
Recommendations
Pain control
Up OOB as tolerated
Follow up path frm OR on 05/25/2024
Humidified O2 via trach collar at 28% to keep SpO2 >88% and <96%
DEPUTY CHIEF COUNSEL evaluation � if fails video fluoroscopic swallow study then insert Dobbhoff tube for tube feeds/PO meds
If patient unable to swallow effectively over the next several days, she will need PEG tube. If patient refuses then will need goals of care discussion
Given her history of moderate COPD, start DuoNebs q12hr
Patient is stable for downgrade out of ICU to telemetry - this was confirmed to be ok with ENT (Dr. Montalvo). Satellite Communications Engineer/Pulmonary service will now sign off. Thank you for allowing us to be involved in the care of this patient. Please reconsult
if there are any additional questions/concerns, or if patient's respiratory status deteriorates.
Assessment
-
Assessment: 79-year-old female active tobacco smoker with a past medical history of COPD, restrictive lung defect, hyperlipidemia, and nephrolithiasis who presents with sore throat. She was recently treated for sinus infection with antibiotics and
her sore throat has persisted. Her PCP advised her to come to the ER. She was afebrile in the ER to 98.4 �F, pulse rate 52, breathing at 18 breaths/min, BP 129/67, and saturating 96% on room air. Labs showed leukocytosis to 20.1. Double contrast
esophageal XR showed suspected tracheal aspiration with cough and recommended video swallow study. Neck CT showed a 2.5 cm soft tissue mass extending caudally from the larynx with encroachment upon the narrowing of the upper trachea, causing
tracheal narrowing. This is concerning for malignancy. She was given IVF with NS 0.9% x 500cc. She was admitted to the hospitalist service and ENT was consulted who recommended tracheostomy to secure airway with direct laryngoscopy/esophagoscopy
for biopsy of this mass seen on neck CT. She underwent tracheostomy today and then transferred to the ICU postoperatively for further care. Critical care services consulted for additional management/recommendations.
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
Impression:
#2.5 cm soft tissue neck mass encroaching upon upper trachea causing tracheal narrowing, concerning for malignancy s/p tracheostomy (POD #1)
#Leukocytosis
#Hyponatremia
#Chronic hypercapnic respiratory failure (venous blood gas postoperatively today shows pCO2 57, pH 7.36)
#Moderate COPD - not currently in an acute exacerbation
#Mild restrictive lung defect
#Tobacco use disorder
Plan:
- Venous blood gas checked showing chronic hypercapnia
- Repeat blood gas this morning shows stable pH at 7.42
- No need for ventilator
- Patient was saturating 94% - 95% on room air postoperatively. Apply humidified air via trach collar to avoid any mucous plugging from developing
- Post-operative management as per ENT
- Pain control
- Given her Hx of COPD, I will start DuoNebs BID
- continue prn nebulized bronchodilators
- DEPUTY CHIEF COUNSEL eval today to assess if pt can tolerate PO meds +/- diet; keep NPO for now
- If patient fails DEPUTY CHIEF COUNSEL eval via VFSS, then insert dobhoff tube
- Follow-up pathology from OR on 05/25/2024
- Consult Oncology
- Check CT Chest/Abd/Pelvis with IV contrast to help stage her suspected malignancy
- Nicotine patch
- Monitor Hb and transfuse to keep Hb >7 g/dL, plt>50k (given post-operative status)
- Maintain SpO2 >88-94%
- Maintain MAP>65
- Replete electrolytes with K>4, Mg>2
- Maintain euglycemia with goal BG 140-180
- Incentive spirometer encouraged
- PT/OT/CM - depending on if pt can swallow effectively over next few days, she will need G-tube. Otherwise recommend goals of care discussion
- DVT ppx: Change HSQ to LMWH, given her malignancy
Patient previously followed with us in the [facility] office with Dr. Rooney - last office visit on 05/25/2023. We will arrange for follow-up with our office s/p discharge.
Patient is stable for downgrade out of ICU to telemetry. Satellite Communications Engineer/Pulmonary service will now sign off. Thank you for allowing us to be involved in the care of this patient. Please reconsult if there are any additional questions/concerns, or if
patient's respiratory status deteriorates.
Total time spent today was 35 minutes for this encounter. Time includes reviewing laboratory test/imaging results, reviewing pertinent medical records, obtaining and reviewing medical history, performing an appropriate exam, ordering medications,
tests and procedures. Time also includes documentation of this encounter, coordinating patient care and communicating with other healthcare professionals. Total time does not include separately billed tests performed on this date of service.
Subjective Dataa
Subjective Data
Date of Service:
Date of Service: May 26, 2024
Chief Complaint: Satellite Communications Engineer Follow Up and Pulmonary Follow Up
Subjective:
Seen and evaluated today at bedside. No acute events reported overnight. Remains on trach collar at 28% FiO2. Patient's daughter at bedside � all questions were answered. Patient currently denies SOB, chest pain, abdominal pain, fevers or chills.
Review of Systems
General: Other (Negative unless mentioned above)
Objective Data
Data Reviewed
Vital Signs / I&O / Oxygen:
Vital Signs
Temp Pulse Resp BP Pulse Ox
97.8 F 60 11 132/78 99
05/26/24 06:00 05/26/24 06:15 05/26/24 06:15 05/26/24 06:00 05/26/24 07:41
Intake and Output
05/25/24 05/26/24 05/27/24
06:59 06:59 06:59
Intake Total 240 / 240 0 / 100 200 / 200
Output Total 475 / 475
Balance 240 / 240 -475 / -375 200 / 200
SaO2 99
Physical Exam
General: Respiratory Distress (Negative), Comfortable, Chills (Negative) and Sweats (Negative)
HEENT: Normocephalic, Anicteric and Other (Tracheostomy present)
Cardiovascular: S1-S2 and Peripheral Edema (Negative)
Respiratory: Wheeze (Negative), Crackles (Negative), Rhonchi ([place] upon expiration on right hemithorax) and Non-Labored Respirations
GI: Soft, Non Distended, Non Tender and Normal Bowel Sounds
Neurology: Awake, Alert and Tremors (Negative)
Skin: Warm, Dry and Rash (Negative)
Labs/Micro/Reports
Lab Data
05/26/24 05:18
05/26/24 05:18
Laboratory Results
05/25/24 05/26/24
10:31 04:32
PT 12.0
INR 0.89
pH 7.42
pCO2 42 H
pO2 86
HCO3 27.2
O2 Delivery Level
--- NOTE | 2024-05-26 08:34 | W.PN.HOSP.TC ---
Addendum entered and electronically signed by Mehrdad Randle DO 05/26/24 12:18:
Moderate protein calorie malnutrition
Original Note:
Today's Communication/Plan
-
Await ENT input
Speech therapy consult
Assessment / Plan
Assessment / Plan
Gen-AAOx3, NAD
HEENT-NC, AT, anicteric, clear oral mm
Neck-supple, trach site with soaked dressing
CV-reg, no M, +S1/S2
Lungs-clear B/L
Abd-soft, NT, ND
Ext-no edema
Musculoskeletal-no cyanosis, clubbing
Skin-warm and dry
Neuro-grossly non-focal
Psych-calm, cooperative
Laryngeal mass -presentation with stridor, dysphagia, weight loss. Highly suspicious for malignancy. Appreciate ENT input. Underwent tracheotomy 05/25. Awaiting ENT to see her today.
Currently n.p.o., awaiting speech therapy input.
CT of the neck confirms a 2.5 cm soft tissue mass extending caudally from the larynx with encroachment upon and narrowing of the upper trachea.
Recently treated with several courses of steroids and antibiotics by her primary care doctor without improvement.
Hyponatremia -133, monitor for now.
.
Tobacco dependence -[id number] smoking history. Apparently quit 2 weeks ago.
COPD without exacerbation -she has not refilled her inhalers. Add DuoNebs as needed. Not on home oxygen.
Hyperlipidemia
Hx nephrolithiasis
Osteoporosis
Full code
Transfer out of ICU if okay with ENT.
Anticipated Discharge: 24 - 48 hours
Subjective/Interval History
-
Date of Service: May 26, 2024
Patient seen and examined. Denies shortness of breath. Denies pain. Feels hungry. No complaints.
Objective Data
-
Labs:
Laboratory Results
05/26/24 05/26/24
04:32 05:18
WBC 16.9 H
Hgb 14.4
Hct 41.3
Plt Count 340
HCO3 27.2
Sodium 133 L
Potassium 4.7
Chloride 102
Carbon Dioxide 26
BUN 19 H
Creatinine 0.5 L
Glucose 128 H
Calcium 8.9
Vital Signs:
Vital Signs
Temp Pulse Resp BP Pulse Ox
97.8 F 60 11 132/78 99
05/26/24 06:00 05/26/24 06:15 05/26/24 06:15 05/26/24 06:00 05/26/24 07:41
I&O
05/25/24 05/26/24 05/27/24
06:59 06:59 06:59
Intake Total 240 / 240 0 / 100 200 / 200
Output Total 475 / 475
Balance 240 / 240 -475 / -375 200 / 200
Review of Systems
-
History Source: Patient
All other systems: Reviewed and negative
--- NOTE | 2024-05-26 09:00 | PTCARENOTE ---
pt received from previous rn- aox3, able to use note pad to write, and nods head yes and no appropriately. pt able to help reposition self, oral care provided. trach #6 shiley noted with bloody drainage- Dr. Randle at bedside, no further orders. pt
on trach collar sats 98%. denies pain at this time. nsr to sb on the monitor. all care explained as given, all safety precautions in place, call holder within reach.
--- NOTE | 2024-05-26 09:35 | PTOTSP ---
Speech Language Pathology
Pt seen for speech/voice evaluation. Pt with #6 Shiley cuffed trach. Provided Passy Wil handout on airflow with typical anatomy vs trach with cuff inflated vs trach with cuff deflated and educated on this. Pt verbalized understanding. Finger
occlusion attempted on exhalations. Significant back pressure noted with leakage of air around trach. Suspect inadequate airflow secondary to obstruction from presence of mass. Pt reported it was hard to exhale. Speaking valve not to be
considered until approximately 48 hours post trach placement; however, doubt pt will tolerate at this time given mass. Pt appropriately communicates by mouthing words and writing at this time.
Pt also seen for clinical bedside swallow evaluation. Esophagram was attempted when pt in ER on 05/24 with tracheal aspiration with cough with single sip of contrast. Family member at bedside reported pt coughing with P.O. intake MANAGER HEART. P.O. trials
of ice chips provided. Adequate oral phase with ice chips only. With small ice chip, delayed coughing noted. With larger ice chips, immediate prolonged coughing noted. Suspect aspiration.
Recommend:
(1) NPO
(2) VSE
(3) Oral care 4x/day with suctioning as needed
(4) Hold on Aspiration Risk Hydration Protocol (ARHP) pending VSE
(5) Pt currently best communicates by mouthing words and writing
(6) CONCRETE MIXER OPERATOR HELPER to continue to follow
--- NOTE | 2024-05-26 09:42 | PTCARENOTE ---
Dr. Field at bedside- ok to stop ivf. speech in to see pt. assisted oob to chair with supervision. no complaints at this time.
--- NOTE | 2024-05-26 10:38 | CON.ONC ---
Documented by User: KAPIL Pinzon 05/26/24 11:05
Impression
Impression
2.5 cm soft tissue mass extending caudally from the larynx
narrowing of the upper trachea/tracheal narrowing s/p trach
leukocytosis
Plan
Plan
will follow for path
will need eventual CT chest, ab, pelvis with IVC for staging, would wait at least 48hours from prior CT with contrast
ENT following
Patient History
History of Present Illness
Consulted by Dr. Vu Field
Consult reason: 2.5 cm soft tissue mass extending from the larynx
79yo F presented to ER with sore throat. She reports nasal discharge, sinus pressure, hoarse voice, difficulty swallowing, mild sob, significant wt loss, and sore throat for the past 2 months. Her sinus symptoms had mild improvement with
steroids and antibiotics in the ambulatory setting. Her persistent sore throat and feeling like there was a lump in her throat prompted her to seek further evaluation in the ER. She underwent flex laryngoscopy with Dr. Montalvo 05/24 that showed a
tumor causing airway compromise. She had a trach placed today. She is known to Dr. Rooney who follows her COPD, chronic bronchitis, and known 9mm RUL lung nodule.
Past-Medical/Surgical History
PMH: COPD, hyperlipidemia, nephrolithiasis, osteoporosis
PSH:
Social: former smoker, quit 2 weeks ago. Denies etoh or recreational drugs. Retired
Family: mother and brother with H&N cancer
Patient Medication
�Medication �Instructions �Recorded �Confirmed �Last Taken �Type
simvastatin 20 mg tablet 20 mg PO QPM 01/17/19 05/24/24 05/23/24 History
calcium carbonate 500 mg PO QPM 05/24/24 05/24/24 05/23/24 History
zinc sulfate 50 mg zinc (220 mg) 50 mg PO QPM 05/24/24 05/24/24 05/23/24 History
tablet
Active Medications
Generic Name Dose Route Start Last Admin
Trade Name Freq PRN Reason Stop Dose Admin
Albuterol/Ipratropium 3 ml 05/25/24 10:19
Ipratropium 0.5/Albuterol 3 Mg (3 Ml Ampul) INH
R Q4HPRN PRN
SOB
Protocol
Heparin Sodium 5,000 units 05/24/24 20:00 05/26/24 07:47
Heparin 5,000 Units/Ml 1 Ml Vial SC 06/21/24 19:59 5,000 units
Q12 IMANI Administration
Hydromorphone HCl 0.5 mg 05/25/24 16:27 05/26/24 02:06
Hydromorphone 0.5 Mg/0.5 Ml Syringe IV 0.5 mg
Q4HPRN PRN Administration
Moderate-severe pain
Sodium Chloride 1,000 mls @ 100 mls/hr 05/26/24 01:45 05/26/24 02:05
Nss IV 1,000 mls
.Q10H IMANI Administration
Ondansetron HCl 4 mg 05/25/24 16:27
Ondansetron 4 Mg/2 Ml Vial IV 06/22/24 16:26
Q6HPRN PRN
Nausea/vomiting
Sodium Chloride 0 flush 05/24/24 20:00
Sodium Chloride 0.9% (Flush) Syringe IV 06/21/24 19:59
PER PROTOCOL IMANI
Review of Systems
-
Review of systems notable for HPI, otherwise negative
Physical Exam
Labs
Lab Results
WBC 16.9 10^3/uL (4.8-10.8) H 05/26/24 05:18
RBC 4.89 10^6/uL (4.20-5.40) 05/26/24 05:18
Hgb 14.4 g/dL (12.0-16.0) 05/26/24 05:18
Hct 41.3 % (37.0-47.0) 05/26/24 05:18
MCV 84.5 fL (81.0-99.0) 05/26/24 05:18
MCH 29.4 pg (27.0-31.0) 05/26/24 05:18
MCHC 34.9 g/dL (33.0-37.0) 05/26/24 05:18
RDW 14.2 % (11.5-14.5) 05/26/24 05:18
Plt Count 340 10^3/uL (130-400) 05/26/24 05:18
MPV 9.7 fL (7.4-10.4) 05/26/24 05:18
Abs Immat Gran (auto) 0.3 10^3/uL (0-0.05) H 05/25/24 08:03
Absolute Neuts (auto) 9.6 10^3/uL (1.4-6.5) H 05/25/24 08:03
Absolute Lymphs (auto) 3.7 10^3/uL (1.2-3.4) H 05/25/24 08:03
Absolute Monos (auto) 1.2 10^3/uL (0.1-0.6) H 05/25/24 08:03
Absolute Eos (auto) 0.1 10^3/uL (0-0.7) 05/25/24 08:03
Absolute Basos (auto) 0.1 10^3/uL (0-0.2) 05/25/24 08:03
Immature Gran % 1.8 % (0-0.5) H 05/25/24 08:03
Neutrophils % 64.5 % (42.2-75.2) 05/25/24 08:03
Lymphocytes % 24.8 % (20.5-51.1) 05/25/24 08:03
Monocytes % 7.7 % (1.7-9.3) 05/25/24 08:03
Eosinophils % 0.7 % (0-6) 05/25/24 08:03
Basophils % 0.5 % (0-2) 05/25/24 08:03
Creatinine 0.5 mg/dL (0.6-1.0) L 05/26/24 05:18
Vital Signs
Vital Signs
Temp Pulse Resp BP Pulse Ox
97.6 F 75 32 129/68 98
05/26/24 08:49 05/26/24 08:30 05/26/24 08:30 05/26/24 08:30 05/26/24 08:39

Documented by User: Darion Frias MD 05/26/24 12:29
Plan
Plan
will follow for path
will need eventual CT chest, ab, pelvis with IVC for staging, would wait at least 48hours from prior CT with contrast
ENT following
Oncology Addendum:
Patient seen and evaluated and agree w/ MANAGED CARE DIRECTOR note and plan as outlined
-await path from laryngoscopy
-will need staging CT imaging c/a/p at some point
will continue to follow with you
--- NOTE | 2024-05-26 11:21 | W.PN.ENT ---
Today's Communication
-
as above
Impression / Plan
-
Doing well. Routine trach care for now
Subjective Data
-
Doing well on POD#1; some mild bloody mucus from stoma
Objective Data
-
Vital Signs
Temp Pulse Resp BP Pulse Ox
97.6 F 75 32 129/68 98
05/26/24 08:49 05/26/24 08:30 05/26/24 08:30 05/26/24 08:30 05/26/24 08:39
Intake & Output
05/25/24 05/26/24 05/27/24
06:59 06:59 06:59
Intake:
Oral fluids 240 / 240 0 / 0
IV fluids (Total) 300 / 300
Nss 1,000 ml @ 100 mls/hr IV . 300 / 300
Q10H IMANI Rx#:[id number]
Output:
Urine, Voided 0 / 0
Straight cath output 475 / 475
Other:
Number of approximated MODERATE 3
amounts of urine
Lab Results
05/26/24 05:18
05/26/24 05:18
PT 12.0 Sec (11.4-14.6) 05/25/24 10:31
INR 0.89 05/25/24 10:31
Calcium 8.9 mg/dl (8.4-10.2) 05/26/24 05:18
Phosphorus 4.6 mg/dl (2.5-4.5) H 05/26/24 05:18
Magnesium 2.1 mg/dl (1.6-2.3) 05/26/24 05:18
Total Bilirubin 0.8 mg/dl (0.2-1.3) 05/25/24 16:39
AST 26 U/L (14-36) 05/25/24 16:39
ALT 23 U/L (0-35) 05/25/24 16:39
Alkaline Phosphatase 84 U/L (38-126) 05/25/24 16:39
Physical Exam
-
Trach site clean and she is breathing well on humidifed O2
--- NOTE | 2024-05-26 11:55 | PN.CDI ---
CDI
- -
CDI:
Physician Documentation Request
Admit Date: 05/25/24 10:18
Dear Doctor Razia,
Please review the following and provide your response in the progress notes.
Clinical Indicators:
Pt admitted with Laryngeal mass.
05/26 Registered Dietitian: 'Patient has lost 8-9 lbs (9%) in past 3 months....With weight loss of > 7.5% in three months and < 75% estimated needs > 1 month pt meets AND/ASPEN criteria for moderate protein calorie malnutrition.'
If possible, please provide in your progress notes, additional specificity regarding the severity of the malnutrition:
Moderate protein calorie malnutrition
No nutritional deficient
Other
Mcgregor Criteria ([facility] Hospitalist 2017)
2 or more criteria must be present for either
non severe or severe malnutrition
Note that the criteria differs related to the
presence of an acute or chronic illness
Acute Illness Chronic Illness
Energy Intake Non Severe: <75% for >7 days Non Severe: <75% for >1 month
Severe: <50% for >5 days Severe: <75% for >1 month
Weight Loss Non Severe: 1-2% over 1 week Non Severe: 5% over 1 month
5% over 1 month 7.5% over 3 months
7.5% over 3 months 10% over 6 months
1 year N/A 20% over 1 year
Severe: >2% over 1 week Severe: >5% over 1 month
>5% over 1 month >7.5% over 3 months
>7.5% over 3 months >10% over 6 months
1 year N/A >20% over 1 year
Use of terms such as suspected, likely, concern for, or probable (associated with a specific diagnosis that is being evaluated, monitored, or treated as if it exists) are acceptable and can be coded in the inpatient setting, when documented at the
time of discharge.
Thank you,
Rosita Xiao RN, BSN
CDI Specialist
Available via [employer]
Please use your independent medical judgment in providing your response.
--- NOTE | 2024-05-26 12:07 | PTCARENOTE ---
pt oob to chair, ent in to see pt- pt trach with some bloody secretions, pt suctioned by rn and rt via trach for blood tinged secretions. remains oob to chair. denies pain. assessment unchanged.
--- NOTE | 2024-05-26 12:53 | PTCARENOTE ---
pt placed on room air, humidified trach collar. pt off floor for video swallow. downgraded to tele.
--- NOTE | 2024-05-26 13:00 | PTOTSP ---
Speech Language Pathology
VIDEOFLUOROSCOPIC SWALLOWING EXAMINATION (VSE) completed. Minimal P.O. trials provided given severity of swallow function. Only provided 1/2 tsp of thin liquids and 1/4 tsp of mildly thick liquids. Severe pharyngeal dysphagia noted. Minimal
airway protection noted with americo silent aspiration (PAS 8) of minimal P.O. trialed. Once asked to initiate coughing, prolonged coughing episode noted with pt having difficulty clearing from airway. Barium noted in trach tube and barium-tinged
mucous noted from leakage around trach tube onto neck. Tracheal suctioning completed with improvement in Sp02 from 93 to 100%.
Pt is at an extremely high risk for aspiration. Etiology is likely new findings of mass. Therefore, prognosis for short-term improvement is poor. Prognosis for long-term improvement is guarded, depends on plan for mass.
Recommend:
(1) Strict NPO
(2) Allow ice chips sparingly as requested post oral care (may increase discomfort) per Aspiration Risk Hydration Protocol (ARHP)
(3) Oral care 4x/day with suctioning as needed
(4) RECOVERY AGENT to continue to follow
--- NOTE | 2024-05-26 13:15 | CM ---
CM following re: discharge planning.
Reviewed pt's chart, met with pt and spoke to pt's sister in law Flakita.
Pt is an 79 year old female, admitted with primary dx of 2.5 cm soft tissue neck mass encroaching upon upper trachea causing tracheal narrowing, concerning for malignancy s/p tracheostomy (POD #0)
Per sister in law, pt lives alone in a rancher style house, 2 years ago, son 1.5 years ago. Pt has daughter Ginny who lives in [place] [phone] and daughter Michelle lives in [place] [phone]. per sister in law, pt is
independent in all areas [employer]. No DME, VN or SNF history.
PCP: Jona Mixon
Pharmacy: [facility].
D/C plan: most likely home with RN for suctioning and family support.
CM will follow with discharge plan updates as hospitalization progresses
--- NOTE | 2024-05-26 15:08 | PTCARENOTE ---
Addendum entered by Shayy Jennings RN 05/26/24 15:15:
dr. hampton aware of refusal
Original Note:
pt oob to chair. refusing dubhoff placement despite education.
[2024-05-26] MEDS: NICODERM TRANSDERMAL TRANSDERM (15:50)
--- NOTE | 2024-05-26 16:10 | PTCARENOTE ---
pt ambulating in hallway with pt and ot. report given to jonathan emanuel on 3w. daughter at bedside, pt and daughter aware of transfer. pt taken in wheelchair.
[2024-05-26] MEDS: LOVENOX 30 MG SC (17:31)
[2024-05-26] MEDS: DUONEB 3 ML INH (21:29)
--- NOTE | 2024-05-27 00:53 | PTCARENOTE ---
Patient states she is having increasing difficulty breathing throughout the evening. Patient has been suctioned multiple times this shift so far, appears to be anxious at times throughout the evening when not asleep. Patient often found asleep after
calling and asking to be suctioned. Patient is requesting a breathing treatment at this time, states she is having difficulty breathing. Respiratory therapist notified. Call holder within reach. Will monitor closely.
[2024-05-27] MEDS: DUONEB 3 ML INH ×3 (01:20→20:15)
[2024-05-27 03:05] VITALS: BP 138/78
[2024-05-27] MEDS: NSS 1000 IV (06:21)
[2024-05-27 07:00] VITALS: BP 131/78
[2024-05-27 07:59] LABS: Hematocrit 42.4 % (37.0-47.0); Hemoglobin 14.5 g/dL (12.0-16.0); Mean Corp Hgb Conc. 34.2 g/dL (33.0-37.0); Mean Corpuscular Hgb 29.7 pg (27.0-31.0); Mean Corpuscular Volume 86.9 fL (81.0-99.0); Mean Platelet Volume 10.3 fL (7.4-10.4); Platelet Count 297 10^3/uL (130-400); Red Blood Cell Count 4.88 10^6/uL (4.20-5.40); Red Cell Dist. Width 14.5 % (11.5-14.5); White Blood Cell Count 14.9 10^3/uL (4.8-10.8)
[2024-05-27 08:47] LABS: Blood Urea Nitrogen 23 mg/dl (7-17); Calcium 8.8 mg/dl (8.4-10.2); Carbon Dioxide 24 mmol/L (22-30); Chloride 102 mmol/L (98-107); Estimated Creatinine Clearance 47 ml/min; Glucose 67 mg/dl (70-99); Magnesium 2.2 mg/dl (1.6-2.3); Phosphorus 2.8 mg/dl (2.5-4.5); Potassium 4.4 mmol/L (3.5-5.1); Sodium 133 mmol/L (135-145); eGFR > 60.00
[2024-05-27] MEDS: NICODERM TRANSDERMAL TRANSDERM (09:21)
--- NOTE | 2024-05-27 09:28 | CON.GI ---
Addendum entered and electronically signed by Nuris Fall MD 05/27/24 12:50:
I saw and examined the patient.
The POWDER LOADER's note was reviewed and I agree with the note.
Comment: This is a 79-year-old female with past medical history as listed below presented to the emergency room on 05/24 with symptoms of dysphagia, sinus congestion and sore throat and on esophagram was noted to have tracheal aspiration she then had
a CT neck which showed a large laryngeal mass and underwent urgent tracheostomy on 05/25/2024 with biopsy of the mass she also had a VSE and showed aspiration risk and recommended n.p.o. and we were asked to evaluate for PEG placement.
Assessment and plan newly diagnosed laryngeal mass with dysphagia and aspiration risk status post tracheostomy 05/25/2024 and recommended n.p.o. Will attempt PEG placement on Wednesday but if the mass is nearly obstructing may be unable to intubate the
esophagus in which case she will need surgical placement of PEG. Discussed with Dr. Randle and Dr. Field
Original Note:
Consultation
-
Date/Time Consultation Requested: 05/26/24 @ 17:20
Date/Time Consultation Performed: 05/27/24 @ 09:00
Requesting Provider: Dr. Field
Performing Provider: KAPIL Claudio; Dr. Nuris Fall
Reason for Consultation: Eval for PEG; neck mass s/p trach, failed OBSTETRICS/GYNECOLOGY NURSE eval; refusing NGT/DHT
Medical History
Chief Complaint / HPI
Chief Complaint: sore throat, dysphagia
History of Present Illness:
The pt is a pleasant 79yo female with a PMH significant for COPD, 1/2 pack/day smoker for 50 years, hyperlipidemia, prior kidney stones, who presented to the emergency room on 05/24 with complaints of a sore throat. Upon review of records, she
reportedly had been having sinus symptoms along with a sore throat for several months. She had been treated with several courses of antibiotics and steroids by her PCP which did have some improvement in her symptoms but she continued to feel a
globus sensation along with difficulty swallowing. She was referred to the ER by her primary care doctor due to ongoing symptom. Upon evaluation in the ER she underwent an esophagram which showed tracheal aspiration and the test was aborted. A CT
of the neck was done showing an approximate 2.5 cm soft tissue mass extending caudally from the larynx with encouragement upon and narrowing of the upper trachea/tracheal narrowing concerning for possible malignancy. She underwent biopsy which is
pending. For airway protection she underwent urgent tracheostomy placement. Oncology is following with further management pending biopsy. A CT of the chest, abdomen, and pelvis is pending for staging. ENT is also following status post
tracheostomy placement. She was evaluated by speech therapy and underwent video swallow evaluation which did show aspiration of nectar and thin liquids. She was recommended strict n.p.o. and for Dobbhoff placement but the patient had declined. We
are being asked to evaluate for PEG tube placement. The patient is not able to speak but is able to mouth words and tells me she has been having difficulty swallowing for the past 2 months. Prior to this she has no history of dysphagia. She has
never had an EGD in the past. She notes that she has been losing weight about 8 pounds over the last month, due to reduced p.o. intake. She denies any nausea, vomiting, or forced regurgitation. She denies any change in bowel habits, melena,
hematochezia, or hematemesis. She denies any abdominal pain. She does not use blood thinners. She did recently stop smoking, with a history of 1/2 pack/day for 50 years. She denies any personal history of cancer or family history of GI cancers
or disorders. Aside from tubal ligation she denies any extensive abdominal surgeries. Routine labs reviewed today showing WBC 14.9 with otherwise normal CBC, sodium 131, potassium 4.4, BUN 23, creatinine 0.5, magnesium 2.2.
Past Medical History
Past Medical History: COPD, Hypercholesterolemia and Other (nephrolithiasis, pneumonia)
Past Surgical History: Gynecological (tubal ligation), Orthopedic (right distal radius ORIF) and Urological (lithotripsy, ureteral stent)
Social History
Tobacco: Smoker (1/2 PPD for 50 years)
Alcohol: None
Drug: None
Family History
Family History: Cancer (Mother; brother: History of throat cancer (per prior notes))
Allergies / Home Medications
Allergy/AdvReac Type Severity Reaction Status Date / Time
No Known Allergies Allergy Verified 05/24/24 11:23
�Medication �Instructions �Recorded
simvastatin 20 mg tablet 20 mg PO QPM 01/17/19
calcium carbonate 500 mg PO QPM 05/24/24
zinc sulfate 50 mg zinc (220 mg) 50 mg PO QPM 05/24/24
tablet
Review of Systems
-
History Source: Patient
Constitutional: Reports Weight Loss
EENT: Reports Sore Throat and Other (sinus congestion/drip)
Respiratory: Reports Cough
Cardiac: Reports No Symptoms
Abdomen/GI: Reports Other (dysphagia)
Vital Signs
Temp Pulse Resp BP Pulse Ox
98.7 F 76 18 131/78 96
05/27/24 07:00 05/27/24 07:34 05/27/24 07:34 05/27/24 07:00 05/27/24 07:34
Physical Exam
Exam
General: Well Developed, Well Nourished, No Apparent Distress and Comfortable
HEENT: Normocephalic, Tracheotomy (small amount of serosanguinous drainage from the trach site) and Atraumatic
Respiratory: Other (upper airway congestion cleared with cough, otherwise clear)
Cardiac: S1/S2 and Regular Rhythm
Breast: Deferred by me
GI: Soft, Non Tender, Non Distended and Normal Bowel Sounds
Musculoskeletal: No Edema
Skin: Warm and Dry
Neuro: Awake, Alert and Oriented
Psych: Calm
Results
WBC 14.9 10^3/uL (4.8-10.8) H 05/27/24 07:11
Hgb 14.5 g/dL (12.0-16.0) 05/27/24 07:11
Hct 42.4 % (37.0-47.0) 05/27/24 07:11
MCV 86.9 fL (81.0-99.0) 05/27/24 07:11
Plt Count 297 10^3/uL (130-400) 05/27/24 07:11
Absolute Neuts (auto) 9.6 10^3/uL (1.4-6.5) H 05/25/24 08:03
PT 12.0 Sec (11.4-14.6) 05/25/24 10:31
INR 0.89 05/25/24 10:31
Sodium 133 mmol/L (135-145) L 05/27/24 07:11
Potassium 4.4 mmol/L (3.5-5.1) 05/27/24 07:11
Chloride 102 mmol/L (98-107) 05/27/24 07:11
Carbon Dioxide 24 mmol/L (22-30) 05/27/24 07:11
BUN 23 mg/dl (7-17) H 05/27/24 07:11
Creatinine 0.5 mg/dL (0.6-1.0) L 05/27/24 07:11
Calcium 8.8 mg/dl (8.4-10.2) 05/27/24 07:11
Total Bilirubin 0.8 mg/dl (0.2-1.3) 05/25/24 16:39
AST 26 U/L (14-36) 05/25/24 16:39
ALT 23 U/L (0-35) 05/25/24 16:39
Alkaline Phosphatase 84 U/L (38-126) 05/25/24 16:39
Diagnostic Image Results:
05/24/24 Esophagram XR: IMPRESSION: Tracheal aspiration with cough. Video swallow study performed by speech pathology is recommended. Unremarkable evaluation of the esophagus.
05/24/[address]: IMPRESSION: Findings suspicious for approximate 2.5 cm soft tissue mass extending caudally from the larynx with encroachment upon and narrowing of the upper trachea/tracheal narrowing. Caudal extension appears to extend between the
right and left lobes the thyroid. Findings could represent malignancy with one differential diagnostic possibility atypical laryngeal carcinoma. Mass is unlikely to be thyroid in origin.
05/25/24 CXR: IMPRESSION: Placement of tracheostomy. No findings to confirm pneumothorax although evaluation limited as a result of subcutaneous seen along the base of the right greater than left neck as well as some POSSIBLE SUPERIOR
PNEUMOMEDIASTINUM.
05/26/24 VSE: Impression: Airway aspiration on thin liquids and nectar consistency Detailed findings as described above.
Prior GI Procedures:
EGD: none
Colonoscopy: 04/18/2012 Dr. Brandon: One 4 mm hyperplastic polyp in the sigmoid colon. Resected and retrieved. The examined portion of the ileum was normal. The examination was otherwise normal on direct and retroflexion views.
Assessment / Plan
-
The pt is a pleasant 79yo female with a PMH significant for COPD, 1/2 pack/day smoker for 50 years, hyperlipidemia, prior kidney stones, who presented to the emergency room on 05/24 with complaints of a sore throat, dysphagia, sinus congestion/drip,
and weight loss, found to have a large laryngeal mass on CT imaging concerning for malignancy. She is status post urgent tracheostomy placement and biopsy of the laryngeal mass. ENT and oncology are following with pending pathology. She has been
evaluated by speech therapy and by strict n.p.o. given aspiration of nectar and thin liquids on VSE. We were asked to evaluate for PEG tube placement. She has no prior hx of dysphagia. No prior EGD.
Problem list:
-laryngeal mass, concerning for malignancy
-acute/subacute dysphagia, likely 2/2 laryngeal mass
-leukocytosis
-COPD
-1/2 PPD smoker for 50 years
-fam hx of throat cancer
-s/p tracheostomy
Other pertinent medical hx:
-HLD
-nephrolithiasis with lithotripsy
Recommendations:
-Etiology of dysphagia likely 2/2 laryngeal mass seen on neck CT. Failed VSE with aspiration of nectar and thin liquids.
-Discussed with Dr. Fall, will attempt PEG placement endoscopically on Wednesday. The pt is agreeable to this plan. Reviewed risks of the procedure including bleeding, infection, perforation. If this is not able to be placed endoscopically will
need surgery consult for surgical G-tube. The pt is also aware of this.
-She does not want a temporary feeding tube (DHT, NG) at this time. Can consider PPN until placement if concerned for nutritional means, defer to hospitalist.
-Continue aspiration precautions
-NPO as per speech
-ENT and oncology are following
-CT A/P/C pending for staging
-Nutrition consult for tube feeding recommendations
-Further management pending above
Data Reviewed
-
CT Scan: Report Reviewed by me and Discussed with Physician
-
-
Thank you for consultation and allowing me to participate in the patient's care. Please call the blocking machine operator second GI physician during the after hours with any questions or concerns.
--- NOTE | 2024-05-27 09:48 | W.PN.HOSP.TC ---
Today's Communication/Plan
-
Continue current care
Assessment / Plan
Assessment / Plan
Gen-AAOx3, NAD
HEENT-NC, AT, anicteric, clear oral mm
Neck-supple, trach site with soaked dressing
CV-reg, no M, +S1/S2
Lungs-clear B/L
Abd-soft, NT, ND
Ext-no edema
Musculoskeletal-no cyanosis, clubbing
Skin-warm and dry
Neuro-grossly non-focal
Psych-calm, cooperative
Laryngeal mass - presentation with stridor, dysphagia, weight loss. Highly suspicious for malignancy. Appreciate ENT input. Underwent tracheotomy 05/25, direct laryngoscopy with biopsy, cervical esophagoscopy. Path report pending.
Did not do well on video swallowing study, n.p.o. recommended. High aspiration risk. Awaiting PEG tube placement on Wednesday. Defer Dobbhoff tube placement to GI service.
CT of the neck confirms a 2.5 cm soft tissue mass extending caudally from the larynx with encroachment upon and narrowing of the upper trachea.
Recently treated with several courses of steroids and antibiotics by her primary care doctor without improvement.
Hypoglycemia noted, change IV fluids to D5 normal saline.
Hyponatremia -133, monitor for now.
.
Tobacco dependence -06-entc-hgyw smoking history. Apparently quit 2 weeks ago.
COPD without exacerbation -she has not refilled her inhalers. Add DuoNebs as needed. Not on home oxygen.
Hyperlipidemia
Hx nephrolithiasis
Osteoporosis
Full code
Anticipated Discharge: > 48 hours
Subjective/Interval History
-
Date of Service: May 27, 2024
Patient seen and examined, no complaints.
Objective Data
-
Labs:
Laboratory Results
05/27/24
07:11
WBC 14.9 H
Hgb 14.5
Hct 42.4
Plt Count 297
Sodium 133 L
Potassium 4.4
Chloride 102
Carbon Dioxide 24
BUN 23 H
Creatinine 0.5 L
Glucose 67 L
Calcium 8.8
Vital Signs:
Vital Signs
Temp Pulse Resp BP Pulse Ox
98.7 F 76 18 131/78 96
05/27/24 07:00 05/27/24 07:34 05/27/24 07:34 05/27/24 07:00 05/27/24 09:23
I&O
05/26/24 05/27/24 05/28/24
06:59 06:59 06:59
Intake Total 0 / 100 300 / 300
Output Total 475 / 475
Balance -475 / -375 300 / 300
Review of Systems
-
History Source: Patient
All other systems: Reviewed and negative
[2024-05-27 11:00] VITALS: BP 122/69
[2024-05-27] MEDS: D5/0.9% SODIUM CHLORIDE 1000 IV (11:09)
[2024-05-27 15:00] VITALS: BP 134/81
--- NOTE | 2024-05-27 17:17 | W.PN.ONC ---
Today's Communication / Plan
-
reviewed CT scans CAP noting no evidence of distant mets-- will likely benefit from rehab -- G tube for nutrition-- needs port for future CMT with radiation
Impression
Impression
2.5 cm soft tissue mass extending caudally from the larynx
narrowing of the upper trachea/tracheal narrowing s/p trach
leukocytosis
Plan
Plan
will follow for path
will need eventual CT chest, ab, pelvis with IVC for staging, would wait at least 48hours from prior CT with contrast
ENT following
Oncology Addendum:
Patient seen and evaluated and agree w/ RN ORTHOPAEDICS note and plan as outlined
-await path from laryngoscopy
-will need staging CT imaging c/a/p at some point
will continue to follow with you
Subjective/Objective
Subjective/Objective
Vital Signs:
Vital Signs
Temp Pulse Resp BP Pulse Ox
99.3 F 62 18 134/81 96
05/27/24 15:00 05/27/24 15:00 05/27/24 15:00 05/27/24 15:00 05/27/24 15:00
Lab Results:
Laboratory Data
WBC 14.9 10^3/uL (4.8-10.8) H 05/27/24 07:11
Hgb 14.5 g/dL (12.0-16.0) 05/27/24 07:11
Plt Count 297 10^3/uL (130-400) 05/27/24 07:11
PT 12.0 Sec (11.4-14.6) 05/25/24 10:31
INR 0.89 05/25/24 10:31
eGFR > 60.00 05/27/24 07:11
Orders
Orders
port placement
[2024-05-27] MEDS: LOVENOX 30 MG SC (18:08)
[2024-05-27 19:15] VITALS: BP 150/80
[2024-05-27 23:36] VITALS: BP 153/76
[2024-05-28] MEDS: D5/0.9% SODIUM CHLORIDE 1000 IV ×2 (00:32→23:12)
[2024-05-28 03:00] VITALS: BP 142/74
[2024-05-28 07:00] VITALS: BP 152/88
[2024-05-28] MEDS: DUONEB 3 ML INH ×2 (07:22→19:50)
[2024-05-28] MEDS: NICODERM TRANSDERMAL TRANSDERM (08:39)
--- NOTE | 2024-05-28 09:39 | W.PN.HOSP.TC ---
Today's Communication/Plan
-
Await PEG tube
Assessment / Plan
Assessment / Plan
Gen-AAOx3, NAD
HEENT-NC, AT, anicteric, clear oral mm
Neck-supple, trach site with soaked dressing
CV-reg, no M, +S1/S2
Lungs-clear B/L
Abd-soft, NT, ND
Ext-no edema
Musculoskeletal-no cyanosis, clubbing
Skin-warm and dry
Neuro-grossly non-focal
Psych-calm, cooperative
Laryngeal mass - presentation with stridor, dysphagia, weight loss. Highly suspicious for malignancy. Appreciate ENT input. Underwent tracheotomy 05/25, direct laryngoscopy with biopsy, cervical esophagoscopy. Path report pending.
Oxygenation adequate on trach collar [address] of the neck confirms a 2.5 cm soft tissue mass extending caudally from the larynx with encroachment upon and narrowing of the upper trachea.
Recently treated with several courses of steroids and antibiotics by her primary care doctor without improvement.
CT chest/abdomen/pelvis done for staging shows moderate pneumomediastinum that is expected postoperatively. Discussed with ENT and pulmonary. No evidence of metastatic disease in the chest, abdomen, pelvis. Cholelithiasis noted.
Severe dysphagia -due to laryngeal mass. Failed video swallow. Awaiting PEG tube placement on Wednesday. Currently NPO.
Hypoglycemia noted, changed IV fluids to D5 normal saline.
Hyponatremia -133, monitor for now.
.
Tobacco dependence -25-touz-muyb smoking history. Apparently quit 2 weeks ago.
COPD without exacerbation -she has not refilled her inhalers. Add DuoNebs as needed. Not on home oxygen.
Hyperlipidemia
Hx nephrolithiasis
Osteoporosis
Full code
Anticipated Discharge: > 48 hours
Subjective/Interval History
-
Date of Service: May 28, 2024
Patient seen and examined. No complaints.
Objective Data
-
Vital Signs:
Vital Signs
Temp Pulse Resp BP Pulse Ox
98.4 F 73 18 152/88 96
05/28/24 07:00 05/28/24 07:24 05/28/24 07:24 05/28/24 07:00 05/28/24 07:24
I&O
05/27/24 05/28/24 05/29/24
06:59 06:59 06:59
Intake Total 300 / 300
Balance 300 / 300
Review of Systems
-
History Source: Patient
All other systems: Reviewed and negative
[2024-05-28 11:00] VITALS: BP 128/68
[2024-05-28 15:00] VITALS: BP 131/67
[2024-05-28 15:07] VITALS: BP 131/67; PULSE 64; O2SAT 95
[2024-05-28] MEDS: LOVENOX 30 MG SC (18:09)
[2024-05-28 23:13] VITALS: BP 142/86
[2024-05-29] VITALS (15 sets, daily range): BP systolic 16–140; BP diastolic 57–83
[2024-05-29] MEDS: DUONEB 3 ML INH (07:32)
[2024-05-29] MEDS: NICODERM TRANSDERMAL TRANSDERM (07:49)
--- NOTE | 2024-05-29 08:23 | W.PN.ONC ---
Addendum entered and electronically signed by Krupa Carrero DO 05/29/24 11:37:
The MUSHROOM SORTER GRADER or PA's note was reviewed and I agree with the note.
Comment: awaiting pathology. Imaging without metastatic disease.
- PEG and port placement for anticipated systemic therapy on dischage.
Original Note:
Today's Communication / Plan
-
Await pathology
CT chest, ab, pelvis was reviewed by Dr. Cuellar (05/27) showing no evidence of distant mets
Monitor CBC
Await PEG tube - planned for today
NPO, supportive care
IRAD consulted for port placement
ENT following, continue trache care as directed
We will continue to follow with you.
Impression
Impression
2.5 cm soft tissue mass extending caudally from the larynx
narrowing of the upper trachea/tracheal narrowing s/p trach
leukocytosis
Subjective/Objective
Subjective/Objective
patient is resting comfortably in bed. family at bedside. she denies pain. she reports some soreness at trache site. family notes she has been OOB and had large amount of secretions which cleared over the weekend.
Vital Signs:
Vital Signs
Temp Pulse Resp BP Pulse Ox
98.3 F 58 15 127/70 97
05/29/24 08:12 05/29/24 08:12 05/29/24 08:12 05/29/24 08:12 05/29/24 08:12
physical exam unchanged.
Lab Results:
Laboratory Data
WBC 14.9 10^3/uL (4.8-10.8) H 05/27/24 07:11
Hgb 14.5 g/dL (12.0-16.0) 05/27/24 07:11
Plt Count 297 10^3/uL (130-400) 05/27/24 07:11
PT 12.0 Sec (11.4-14.6) 05/25/24 10:31
INR 0.89 05/25/24 10:31
eGFR > 60.00 05/27/24 07:11
Orders
Orders
Orders From Last 24 Hours
05/29/24 08:21
[facility] CONSULT Routine
--- NOTE | 2024-05-29 08:41 | W.PN.HOSP.TC ---
Today's Communication/Plan
-
PEG today
continue trach collar
Assessment / Plan
Assessment / Plan
Assessment:
Laryngeal mass - presentation with stridor, dysphagia, weight loss
- Highly suspicious for malignancy.
- Findings suspicious for approximate 2.5 cm soft tissue mass extending caudally from the larynx with encroachment upon and narrowing of the upper trachea/tracheal narrowing. Caudal extension appears to extend between the right and left lobes the
thyroid. Findings could represent malignancy with one differential diagnostic possibility atypical laryngeal carcinoma. Mass is unlikely to be thyroid in origin.
- s/p tracheotomy, direct laryngoscopy with biopsy, cervical esophagoscopy on 05/25. Path report pending.
- ENT following
- Onc following
- CT C/A/P without evidence of metastatic disease.
Moderate pneumomediastinum
- expected post-operatively, d/w ENT and pulm
- monitor
Severe dysphagia
- failed VSE, high risk for aspiration
- for Endoscopic PEG placement, if fails, will need surgical placement
- continue NPO status for now
steroid induced leukocytosis
- was on steroids prior to admission
- monitor CBC
Hyponatremia - 133, monitor for now.
.
Tobacco dependence - [id number] smoking history. Apparently quit 2 weeks ago.
COPD without exacerbation - she has not refilled her inhalers. Add DuoNebs as needed. Not on home oxygen. OP Pulm follow up.
Hyperlipidemia - holding statin
Hx nephrolithiasis
Osteoporosis
DVT ppx: Lovenox
Code: Full
Anticipated Discharge: > 48 hours
Subjective/Interval History
-
Date of Service: May 29, 2024
no acute complaints this AM prior to EGD for PEG Placement
on humidified room air
Objective Data
-
Vital Signs:
Vital Signs
Temp Pulse Resp BP Pulse Ox
98.3 F 58 15 127/70 97
05/29/24 08:12 05/29/24 08:12 05/29/24 08:12 05/29/24 08:12 05/29/24 08:12
Physical Exam
-
General: No Apparent Distress
HEENT: Normocephalic, Atraumatic and Tracheotomy
Respiratory: Negative Wheezes
Cardiac: Regular Rhythm and S1/S2
GI: Soft
Genito-urinary: No Costovertebral Tender
Neuro: AO x 3
Psych: Calm
Data Reviewed
-
Total Time Spent with Patient (in minutes): 45
Labs: Labs Reviewed by me
--- NOTE | 2024-05-29 11:29 | W.IMMPOSTOP ---
Surgical Immed Post Op Note
-
Primary Surgeon: Nadeem
Assisting Surgeon: Juan David
Pre-op Diagnosis: Malnutrition, dysphagia
Post-op Diagnosis: Malnutrition, dysphagia
Procedure Performed: Percutaneous endoscopic gastrostomy tube (PEG)
Anesthesia Type: MAC/local
Specimen / Cultures: None
Estimated Blood Loss: 3 cc
Complications: None
Operative Findings:
1. Displacement of esophagus due to extrinsic mass effect, no gross mucosal abnormalities, normal lower esophagus, stomach, dudenum (see GI note for details)
2. 20 Fr PEG tube inserted using pull technique; transillumination, 1:1 palpation, bubble study
3. Repeat EGD with tube in appropriate position, spin, no mucosal bleeding, secured at 2.5 cm at the skin
[2024-05-29] MEDS: D5/0.9% SODIUM CHLORIDE 1000 IV ×2 (11:46→23:48)
--- NOTE | 2024-05-29 14:23 | CM ---
Case management following for d/c planning
Chart reviewed
Pt for PEG placement today
CM will follow for d/c needs
Plan - tbd
[2024-05-29] MEDS: LOVENOX 30 MG SC (18:25)
--- NOTE | 2024-05-29 18:26 | W.PN.ENT ---
Today's Communication
-
seen at bedside
Impression / Plan
-
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
large tumor present in Larynx, subglottic area
Subjective Data
-
trach doing well
no bleeding
Objective Data
-
Vital Signs
Temp Pulse Resp BP Pulse Ox
98.5 F 59 15 129/73 98
05/29/24 14:50 05/29/24 14:50 05/29/24 14:50 05/29/24 14:50 05/29/24 14:50
Lab Results
05/27/24 07:11
05/27/24 07:11
PT 12.0 Sec (11.4-14.6) 05/25/24 10:31
INR 0.89 05/25/24 10:31
Calcium 8.8 mg/dl (8.4-10.2) 05/27/24 07:11
Phosphorus 2.8 mg/dl (2.5-4.5) 05/27/24 07:11
Magnesium 2.2 mg/dl (1.6-2.3) 05/27/24 07:11
Total Bilirubin 0.8 mg/dl (0.2-1.3) 05/25/24 16:39
AST 26 U/L (14-36) 05/25/24 16:39
ALT 23 U/L (0-35) 05/25/24 16:39
Alkaline Phosphatase 84 U/L (38-126) 05/25/24 16:39
Physical Exam
-
trach site OK
Chest: Clear
Respiratory: Clear
Data Reviewed
-
Radiology Results: Report Reviewed
Micro Results: Report Reviewed
[2024-05-30] VITALS (7 sets, daily range): BP systolic 100–126; BP diastolic 62–83; PULSE 62; O2SAT 95–97
[2024-05-30 06:52] LABS: Hematocrit 36.8 % (37.0-47.0); Hemoglobin 13.2 g/dL (12.0-16.0); Mean Corp Hgb Conc. 35.9 g/dL (33.0-37.0); Mean Corpuscular Hgb 30.7 pg (27.0-31.0); Mean Corpuscular Volume 85.6 fL (81.0-99.0); Mean Platelet Volume 10.3 fL (7.4-10.4); Platelet Count 222 10^3/uL (130-400); Red Cell Dist. Width 14.1 % (11.5-14.5); White Blood Cell Count 9.5 10^3/uL (4.8-10.8)
[2024-05-30 07:15] LABS: Blood Urea Nitrogen 8 mg/dl (7-17); Calcium 8.6 mg/dl (8.4-10.2); Carbon Dioxide 24 mmol/L (22-30); Chloride 107 mmol/L (98-107); Estimated Creatinine Clearance 47 ml/min; Glucose 130 mg/dl (70-99); Potassium 3.5 mmol/L (3.5-5.1); Sodium 137 mmol/L (135-145); eGFR > 60.00
[2024-05-30] MEDS: NICODERM TRANSDERMAL TRANSDERM (07:39)
--- NOTE | 2024-05-30 08:05 | W.PN.ONC ---
Documented by User: KAPIL Sanchez 05/30/24 09:23
Today's Communication / Plan
-
Monitor CBC daily
05/26 Pathology: right subglottic lesion: + squamous cell carcinoma
CT chest, ab, pelvis was reviewed by Dr. Cuellar (05/27) showing no evidence of distant metastatic disease
s/p PEG placement with Dr. Silver 05/29 - nutrition as directed
Aspiration precautions
ENT following, continue trache care as directed
IRAD consulted for port placement
Port to be placed closer to discharge per IR scheduling
Anticipate systemic therapy upon discharge
Continue supportive care
We will follow.
Impression
Impression
2.5 cm soft tissue mass extending caudally from the larynx
Narrowing of the upper trachea/tracheal narrowing s/p tracheostomy
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
Leukocytosis
Dysphagia
PEG tube (05/29)
Subjective/Objective
Subjective/Objective
patient is resting comfortably in bed. nutrition running through PEG. patient denies pain or acute issue.
Vital Signs:
Vital Signs
Temp Pulse Resp BP Pulse Ox
97.9 F 57 16 100/62 96
05/30/24 07:46 05/30/24 07:46 05/30/24 07:46 05/30/24 07:46 05/30/24 07:46
physical exam:
aaox3, flat affect
trache site CDI, thick white secretions within collar
PEG tube in place, site CDI, abdomen soft
Lab Results:
Laboratory Data
WBC 9.5 10^3/uL (4.8-10.8) 05/30/24 06:11
Hgb 13.2 g/dL (12.0-16.0) 05/30/24 06:11
Plt Count 222 10^3/uL (130-400) D 05/30/24 06:11
PT 12.0 Sec (11.4-14.6) 05/25/24 10:31
INR 0.89 05/25/24 10:31
eGFR > 60.00 05/30/24 06:11
Orders
Orders
Orders From Last 24 Hours
05/29/24 08:21
[facility] CONSULT Routine

Documented by User: Namrata Loco MD 05/30/24 12:29
Today's Communication / Plan
-
Met w/ patient and family, discussed treatment, likely to include radiation with weekly cisplatin
For port placement tomorrow
Tube feeds and trach care per primary team
Will facilitate Rad Onc consult at [facility] w/ Dr. Gamboa and med onc f/u in next 1-2 weeks
Impression
Impression
T3N0M0 SCC of subglottis
Narrowing of the upper trachea/tracheal narrowing s/p tracheostomy
Leukocytosis
Dysphagia
PEG tube (05/29)
Plan
Plan
Met w/ patient and family, discussed treatment, likely to include radiation with weekly cisplatin
For port placement tomorrow
Tube feeds and trach care per primary team
Will facilitate Rad Onc consult at [facility] w/ Dr. Gamboa and med onc f/u in next 1-2 weeks
--- NOTE | 2024-05-30 11:09 | W.PN.HOSP.TC ---
Today's Communication/Plan
-
IR for port placement
DC planning home/VN
Assessment / Plan
Assessment / Plan
Assessment:
Laryngeal mass - presentation with stridor, dysphagia, weight loss
- CT Findings suspicious for approximate 2.5 cm soft tissue mass extending caudally from the larynx with encroachment upon and narrowing of the upper trachea/tracheal narrowing. Caudal extension appears to extend between the right and left lobes the
thyroid. Findings could represent malignancy with one differential diagnostic possibility atypical laryngeal carcinoma. Mass is unlikely to be thyroid in origin.
- s/p tracheotomy, direct laryngoscopy with biopsy, cervical esophagoscopy on 05/25. 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
- CT C/A/P without evidence of metastatic disease.
- ENT following for trach care
- Onc following for eventual chemotherapy; IRAD consulted for PORT placement.
Moderate pneumomediastinum
- expected post-operatively, d/w ENT and pulm
- monitor
Severe dysphagia
- failed VSE, high risk for aspiration
- s/p PEG placement 05/29; TF initiated per protocol. monitor tolerance
steroid induced leukocytosis
- was on steroids prior to admission
- monitor CBC
Hyponatremia - 137, monitor for now.
Tobacco dependence - [id number] smoking history. Apparently quit 2 weeks ago.
COPD without exacerbation - she has not refilled her inhalers. Add DuoNebs as needed. Not on home oxygen. OP Pulm follow up.
Hyperlipidemia - holding statin
Hx nephrolithiasis
Osteoporosis
DVT ppx: Lovenox
Code: Full
Anticipated Discharge: 24 - 48 hours
Subjective/Interval History
-
Date of Service: May 30, 2024
no acute issues, tolerating TFs so far
Objective Data
-
Labs:
Laboratory Results
05/30/24
06:11
WBC 9.5
Hgb 13.2
Hct 36.8 L
Plt Count 222 D
Sodium 137
Potassium 3.5
Chloride 107
Carbon Dioxide 24
BUN 8
Creatinine 0.3 L
Glucose 130 H
Calcium 8.6
Vital Signs:
Vital Signs
Temp Pulse Resp BP Pulse Ox
97.9 F 57 16 100/62 96
05/30/24 07:46 05/30/24 07:46 05/30/24 07:46 05/30/24 07:46 05/30/24 07:46
Physical Exam
-
General: No Apparent Distress
HEENT: Normocephalic, Atraumatic and Tracheostomy Collar
Respiratory: Negative Wheezes
Cardiac: Regular Rhythm and S1/S2
GI: Soft
Genito-urinary: No Costovertebral Tender
Musculoskeletal: No Edema
Neuro: AO x 3
Psych: Calm
Data Reviewed
-
Total Time Spent with Patient (in minutes): 44
Labs: Labs Reviewed by me
[2024-05-30] MEDS: ROBITUSSIN 200 MG TUBE ×3 (12:11→22:12)
--- NOTE | 2024-05-30 12:58 | CM ---
Addendum entered by Margie Carolina 05/30/24 15:52:
Accepted by [facility] for home care needs
Will follow for DME/feeding needs
Plan - anticipate home with [facility] and family care
Original Note:
Case management following for discharge planning
Spoke with pt daughter Michelle at bedside - pt lived alone prior to hospitalization
Pt and family prefer to bring pt home with services - family will be with pt ATC when d/c'ed home per daughter
Will send referral in [facility] for Trach care/nsg
Will contact [facility] for Tube feedings/care
CM will follow for additional needs
Plan - anticipate home with HH when medically stable
--- NOTE | 2024-05-30 13:53 | RESPNOTE ---
Passy-Wil Speaking valve assessment done at bedside. Patient on a 28% trach collar with cuff deflated and oxygen saturations of 98%. Patient states she is not short of breath. Patient has a strong productive cough for thin clear/white mucus.
Patient was sitting upright in bed and instructed on the procedure. Patient's trach inner cannula removed at time of evaluation. Continuous pulseoximetry was monitored during the evaluation. Patient was instructed to take a deep breath in, the
trach was occluded and the patient exhaled with air movement out of upper airway. This was repeated with the patient saying 'hello' multiple times. Patient did have some coughing spells. Patient's oxygen saturation held above 97% during finger
trial with no complaints of dyspnea. Patient attempted a trial of wearing the Passy-Wil valve resulting in an immediate coughing spell and some dyspnea. Valve trial was stopped at this time. Patient no desaturations below 96% were observed during
trial. Patient's inner cannula was re-inserted with good airflow through trach. No further complaints of dyspnea or coughing.
--- NOTE | 2024-05-30 14:38 | PTOTSP ---
PUBLIC HEALTH DIETITIAN Note
As patient was not able to tolerate Passy [place] Valve with respiratory therapist, it should NOT be placed at any point unless for trials with respiratory therapist or PUBLIC HEALTH DIETITIAN. Do not place Passy [place] Speaking valve.
--- NOTE | 2024-05-30 15:53 | W.PN.GI.CBS2 ---
Today's Communication / Plan
-
contue TF as tolerated
further plan per medicine and oncology and ENT
Assessment / Plan
-
The pt is a pleasant 79yo female with a PMH significant for COPD, 1/2 pack/day smoker for 50 years, hyperlipidemia, prior kidney stones, who presented to the emergency room on 05/24 with complaints of a sore throat, dysphagia, sinus congestion/drip,
and weight loss, found to have a large laryngeal mass on CT imaging concerning for malignancy. She is status post urgent tracheostomy placement and biopsy of the laryngeal mass. ENT and oncology are following with pending pathology. She has been
evaluated by speech therapy and by strict n.p.o. given aspiration of nectar and thin liquids on VSE. We were asked to evaluate for PEG tube placement. She has no prior hx of dysphagia. No prior EGD.
Problem list:
-laryngeal mass, concerning for malignancy
-acute/subacute dysphagia, likely 2/2 laryngeal mass
-leukocytosis
-COPD
-1/2 PPD smoker for 50 years
-fam hx of throat cancer
-s/p tracheostomy
Other pertinent medical hx:
-HLD
-nephrolithiasis with lithotripsy
Recommendations:
-Etiology of dysphagia likely 2/2 laryngeal mass seen on neck CT. Failed VSE with aspiration of nectar and thin liquids.
-s/p PEG 05/29 and tolerating TF
-Continue aspiration precautions
-ENT and oncology are following
-Will s/o and will be available as needed
Subjective
Subjective
Date of Service: May 30, 2024
Status post PEG placement yesterday and is tolerating tube feeds, denies abdominal pain, no fever
Objective
Data Reviewed
Laboratory Data:
Laboratory Results
05/30/24 06:11
05/30/24 06:11
Laboratory Results
PT 12.0 Sec (11.4-14.6) 05/25/24 10:31
INR 0.89 05/25/24 10:31
Phosphorus 2.8 mg/dl (2.5-4.5) 05/27/24 07:11
Magnesium 2.2 mg/dl (1.6-2.3) 05/27/24 07:11
Total Bilirubin 0.8 mg/dl (0.2-1.3) 05/25/24 16:39
AST 26 U/L (14-36) 05/25/24 16:39
ALT 23 U/L (0-35) 05/25/24 16:39
Alkaline Phosphatase 84 U/L (38-126) 05/25/24 16:39
Vital Signs and I&O:
Vital Signs
Temp Pulse Resp BP Pulse Ox
98.6 F 61 16 122/70 97
05/30/24 11:25 05/30/24 11:25 05/30/24 11:25 05/30/24 11:25 05/30/24 11:25
Physical Exam
Physical Exam
Cardiology: Normal Sinus Rhythm
Pulmonary: Clear
GI: Soft, Non Distended, Non Tender and Other (PEG site looks good)
--- NOTE | 2024-05-30 16:05 | VNURNOTE ---
[facility] liaison met with patient, daughter Michelle, and friend at bedside. Explained [facility] services, frequency of visits, purpose. Patient will be in need of tube feed pump, tubing, formula, trach cannulas, suction equip, and requesting hospital bed.
Patient and daughter agreeable and understand that visits at home will be 2-3 x per week to assess and teach medical management. [facility] brochure provided with contact information. Patient is aware that [facility] will contact them for start of care same
day to 1 day out. [facility] referral completed in [facility] and pipe supervisor notified of complex, time-sensative case. Contact Michelle daughter for delivery, copay info: [phone].
[2024-05-30] MEDS: LOVENOX 30 MG SC (17:15)
--- NOTE | 2024-05-31 05:17 | W.PN.ENT ---
Today's Communication
-
patient seen at bedside
Impression / Plan
-
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
large tumor present in Larynx, subglottic area
Tracheotomy tube changed to Shiley #4 uncuffed, the patient tolerated this well.
Subjective Data
-
trach doing well
no bleeding
Objective Data
-
Vital Signs
Temp Pulse Resp BP Pulse Ox
97.9 F 86 16 126/83 95
05/30/24 23:54 05/30/24 23:54 05/30/24 23:54 05/30/24 23:54 05/30/24 23:54
Intake & Output
05/29/24 05/30/24 05/31/24
06:59 06:59 06:59
Intake:
Tube feeding 300 / 300
Feeding tube flush amount 300 / 300
Other:
Number of approximated MODERATE 1
amounts of urine
Number of approximated LARGE 1
amounts of urine
PT 12.0 Sec (11.4-14.6) 05/25/24 10:31
INR 0.89 05/25/24 10:31
Calcium 8.6 mg/dl (8.4-10.2) 05/30/24 06:11
Phosphorus 2.8 mg/dl (2.5-4.5) 05/27/24 07:11
Magnesium 2.2 mg/dl (1.6-2.3) 05/27/24 07:11
Total Bilirubin 0.8 mg/dl (0.2-1.3) 05/25/24 16:39
AST 26 U/L (14-36) 05/25/24 16:39
ALT 23 U/L (0-35) 05/25/24 16:39
Alkaline Phosphatase 84 U/L (38-126) 05/25/24 16:39
Physical Exam
-
#[address]
trach site Ok
no bleeding
Chest: Clear
Respiratory: Clear
Data Reviewed
-
Radiology Results: Report Reviewed
[2024-05-31 06:31] LABS: Hematocrit 37.5 % (37.0-47.0); Hemoglobin 13.1 g/dL (12.0-16.0); Mean Corp Hgb Conc. 34.9 g/dL (33.0-37.0); Mean Corpuscular Hgb 30.2 pg (27.0-31.0); Mean Corpuscular Volume 86.4 fL (81.0-99.0); Mean Platelet Volume 10.4 fL (7.4-10.4); Platelet Count 244 10^3/uL (130-400); Red Blood Cell Count 4.34 10^6/uL (4.20-5.40); Red Cell Dist. Width 14.3 % (11.5-14.5); White Blood Cell Count 8.9 10^3/uL (4.8-10.8)
[2024-05-31 07:21] LABS: Blood Urea Nitrogen 15 mg/dl (7-17); Calcium 9.1 mg/dl (8.4-10.2); Carbon Dioxide 32 mmol/L (22-30); Chloride 102 mmol/L (98-107); Estimated Creatinine Clearance 47 ml/min; Glucose 109 mg/dl (70-99); Potassium 3.4 mmol/L (3.5-5.1); Sodium 137 mmol/L (135-145); eGFR > 60.00
[2024-05-31 07:30] VITALS: BP 117/71
[2024-05-31] MEDS: ROBITUSSIN 200 MG TUBE ×4 (08:22→23:11)
[2024-05-31] MEDS: NICODERM TRANSDERMAL TRANSDERM (08:29)
--- NOTE | 2024-05-31 08:50 | W.PN.HOSP.TC ---
Addendum entered and electronically signed by Anna Josue MD 05/31/24 11:46:
Patient is in need of a semi electric hospital bed d/t need to elevate head of bed above 30 degrees to prevent aspiration related to tube feedings and to facilitate frequent repositioning to prevent bed ulcers and pressure points.
Original Note:
Today's Communication/Plan
-
await IR[facility] port placement
DC planning
Assessment / Plan
Assessment / Plan
Assessment:
Laryngeal mass - presentation with stridor, dysphagia, weight loss
- CT Findings suspicious for approximate 2.5 cm soft tissue mass extending caudally from the larynx with encroachment upon and narrowing of the upper trachea/tracheal narrowing. Caudal extension appears to extend between the right and left lobes the
thyroid. Findings could represent malignancy with one differential diagnostic possibility atypical laryngeal carcinoma. Mass is unlikely to be thyroid in origin.
- s/p tracheotomy, direct laryngoscopy with biopsy, cervical esophagoscopy on 05/25. 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
- CT C/A/P without evidence of metastatic disease.
- ENT following for trach care
- Onc following for eventual chemotherapy; IRAD consulted for PORT placement.
Moderate pneumomediastinum
- expected post-operatively, d/w ENT and pulm
- monitor
Severe dysphagia
- failed VSE, high risk for aspiration
- s/p PEG placement 05/29; TF initiated per protocol. monitor tolerance
steroid induced leukocytosis
- was on steroids prior to admission
- monitor CBC
Hyponatremia - 137, monitor for now.
Tobacco dependence - 73-bxyi-hoxb smoking history. Apparently quit 2 weeks ago.
COPD without exacerbation - she has not refilled her inhalers. Add DuoNebs as needed. Not on home oxygen. OP Pulm follow up.
Hyperlipidemia - holding statin
Hx nephrolithiasis
Osteoporosis
Hypokalemia
DVT ppx: Lovenox
Code: Full
Anticipated Discharge: 24 - 48 hours
Subjective/Interval History
-
Date of Service: May 31, 2024
no new complaints
Tracheotomy tube changed to Shiley #4 uncuffed
Objective Data
-
Labs:
Laboratory Results
05/31/24
06:04
WBC 8.9
Hgb 13.1
Hct 37.5
Plt Count 244
Sodium 137
Potassium 3.4 L
Chloride 102
Carbon Dioxide 32 H
BUN 15
Creatinine 0.4 L
Glucose 109 H
Calcium 9.1
Vital Signs:
Vital Signs
Temp Pulse Resp BP Pulse Ox
98.6 F 57 16 117/71 97
05/31/24 07:30 05/31/24 07:30 05/31/24 07:30 05/31/24 07:30 05/31/24 07:30
I&O
05/30/24 05/31/24 06/01/24
06:59 06:59 06:59
Intake Total 1380 / 1380
Balance 1380 / 1380
Physical Exam
-
General: No Apparent Distress
HEENT: Normocephalic, Atraumatic and Tracheotomy
Respiratory: Negative Wheezes
Cardiac: Regular Rhythm and S1/S2
GI: Soft
Genito-urinary: No Costovertebral Tender
Neuro: AO x 3
Psych: Calm
Data Reviewed
-
Total Time Spent with Patient (in minutes): 42
Labs: Labs Reviewed by me
--- NOTE | 2024-05-31 10:04 | W.PN.ONC2 ---
Today's Communication / Plan
-
port placement
Impression
Impression
T3N0M0 SCC of subglottis
Narrowing of the upper trachea/tracheal narrowing s/p tracheostomy
Leukocytosis
Dysphagia
PEG tube (05/29)
Plan
Plan
Met w/ patient and family, discussed treatment, likely to include radiation with weekly cisplatin
For port placement
Tube feeds and trach care per primary team
Will facilitate Rad Onc consult at [facility] w/ Dr. Gamboa and med onc f/u in next 1-2 weeks
Subjective/Objective
Chief Complaint
muscular soreness from coughing
Subjective
Denies sob, chest pain
tolerating tube feed
Vital Signs:
Vital Signs
Temp Pulse Resp BP Pulse Ox
98.6 F 57 16 117/71 97
05/31/24 07:30 05/31/24 07:30 05/31/24 07:30 05/31/24 07:30 05/31/24 07:30
Lab Results:
Laboratory Data
WBC 8.9 10^3/uL (4.8-10.8) 05/31/24 06:04
Hgb 13.1 g/dL (12.0-16.0) 05/31/24 06:04
Plt Count 244 10^3/uL (130-400) 05/31/24 06:04
PT 12.0 Sec (11.4-14.6) 05/25/24 10:31
INR 0.89 05/25/24 10:31
eGFR > 60.00 05/31/24 06:04
Physical Exam
HEENT: Moist Mucous Membranes and Other (trach); No Jaundice
Cardiology: S1 and S2
Pulmonary: No Wheezes
GI: Soft and Other (PEG)
Extremities: No Edema
Neuro: Non Focal
Review of Systems
Review of Systems
ROS notable for subjective otherwise negative
[2024-05-31] MEDS: KCL ELIXIR 40 MEQ TUBE (12:35)
--- NOTE | 2024-05-31 12:36 | VNURNOTE ---
Confirmed with Diana at PCP's that Loren Zarate EMISSIONS ENGINEER will follow in the community for orders including TF. Referral accepted in [facility]. Clinicals, order forms sent to [facility]. Spoke with Celestine at [facility] who confirmed TF set up and equip can be
delivered to the hospital room prior to discharge. Requested that trach, suction supplies be delivered to the house. Date/times TBD. She confirmed DME supervisor delivery department will set up and explain to family. Spoke with daughter Michelle again, gave
updates. She confirms she or another family member will be with the patient at home continuously. This RN also spoke with nurse Crocker. Requested that patient and a family member be taught suctioning and cannula change prior to DC.
[2024-05-31 15:10] VITALS: BP 127/86
[2024-05-31] MEDS: LOVENOX 30 MG SC (19:15)
[2024-05-31 23:04] VITALS: BP 128/72
[2024-05-31] MEDS: DILAUDID 0.5 MG IV (23:10)
[2024-06-01 06:00] VITALS: BMI 17.2
[2024-06-01 07:15] VITALS: BMI 17.4
[2024-06-01 07:18] LABS: Blood Urea Nitrogen 17 mg/dl (7-17); Calcium 8.9 mg/dl (8.4-10.2); Carbon Dioxide 28 mmol/L (22-30); Chloride 102 mmol/L (98-107); Estimated Creatinine Clearance 47 ml/min; Glucose 114 mg/dl (70-99); Sodium 135 mmol/L (135-145); eGFR > 60.00
[2024-06-01 07:30] VITALS: BP 110/67
--- NOTE | 2024-06-01 08:26 | W.PN.ONC2 ---
Today's Communication / Plan
-
port placement
d/c planning
Impression
Impression
T3N0M0 SCC of subglottis
Narrowing of the upper trachea/tracheal narrowing s/p tracheostomy
Leukocytosis
Dysphagia
PEG tube (05/29)
Plan
Plan
OP treatment, likely to include radiation with weekly cisplatin
For port placement
Tube feeds and trach care per primary team
Will facilitate Rad Onc consult at [facility] w/ Dr. Gamboa and med onc f/u in next 1-2 weeks
Subjective/Objective
Chief Complaint
no new complaints
Subjective
no new complaints
Vital Signs:
Vital Signs
Temp Pulse Resp BP Pulse Ox
98.6 F 61 18 110/67 96
06/01/24 07:30 06/01/24 07:30 06/01/24 07:30 06/01/24 07:30 06/01/24 07:30
Lab Results:
Laboratory Data
WBC 8.9 10^3/uL (4.8-10.8) 05/31/24 06:04
Hgb 13.1 g/dL (12.0-16.0) 05/31/24 06:04
Plt Count 244 10^3/uL (130-400) 05/31/24 06:04
PT 12.0 Sec (11.4-14.6) 05/25/24 10:31
INR 0.89 05/25/24 10:31
eGFR > 60.00 06/01/24 06:03
Physical Exam
HEENT: Moist Mucous Membranes; No Jaundice
Cardiology: S1 and S2
Pulmonary: Clear and Other (trach)
GI: Soft
Rectal: Other (PEG)
Extremities: Pulses Present; No Edema
Neuro: Non Focal
Review of Systems
Review of Systems
ROS notable for subjective, otherwise negative
[2024-06-01] MEDS: NICODERM TRANSDERMAL TRANSDERM (08:35)
[2024-06-01] MEDS: ROBITUSSIN 200 MG TUBE ×4 (08:36→22:42)
--- NOTE | 2024-06-01 09:14 | VNURNOTE ---
Spoke with Jordana at [facility]. She confirmed paperwork received. Confirmed daughter Michelle's contact number (primary contact to schedule/set up equip). Per Jordana they have to run insurance and check stock. Their next step is contacting daughter
for payment. Coreen Martinez called by this author and notified.
--- NOTE | 2024-06-01 10:05 | W.PN.HOSP.TC ---
Today's Communication/Plan
-
PORT placement
DC planning of VN/DME
Assessment / Plan
Assessment / Plan
Assessment:
Laryngeal mass - presentation with stridor, dysphagia, weight loss
- CT Findings suspicious for approximate 2.5 cm soft tissue mass extending caudally from the larynx with encroachment upon and narrowing of the upper trachea/tracheal narrowing. Caudal extension appears to extend between the right and left lobes the
thyroid. Findings could represent malignancy with one differential diagnostic possibility atypical laryngeal carcinoma. Mass is unlikely to be thyroid in origin.
- s/p tracheotomy, direct laryngoscopy with biopsy, cervical esophagoscopy on 05/25. 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
- CT C/A/P without evidence of metastatic disease.
- ENT following for trach care
- Onc following for eventual chemotherapy; IRAD consulted for PORT placement. Systemic therapy and rad/onc consult outpatient.
Moderate pneumomediastinum
- expected post-operatively, d/w ENT and pulm
- monitor
Severe dysphagia
- failed VSE, high risk for aspiration
- s/p PEG placement 05/29; TF initiated per protocol. tolerating well.
steroid induced leukocytosis
- was on steroids prior to admission
- monitor CBC
Hyponatremia - 135, monitor for now.
Tobacco dependence - [id number] smoking history. Apparently quit 2 weeks ago.
COPD without exacerbation - she has not refilled her inhalers. Add DuoNebs as needed. Not on home oxygen. OP Pulm follow up.
Hyperlipidemia - holding statin
Hx nephrolithiasis
Osteoporosis
Hypokalemia
DVT ppx: Lovenox
Code: Full
Anticipated Discharge: 24 - 48 hours
Subjective/Interval History
-
Date of Service: June 01, 2024
no new complaints
for IR Port placement today
Objective Data
-
Labs:
Laboratory Results
06/01/24
06:03
Sodium 135
Potassium 4.0
Chloride 102
Carbon Dioxide 28
BUN 17
Creatinine 0.4 L
Glucose 114 H
Calcium 8.9
Vital Signs:
Vital Signs
Temp Pulse Resp BP Pulse Ox
98.6 F 61 18 110/67 96
06/01/24 07:30 06/01/24 07:30 06/01/24 07:30 06/01/24 07:30 06/01/24 07:30
I&O
05/31/24 06/01/24 06/02/24
06:59 06:59 06:59
Intake Total 1380 / 1380
Balance 1380 / 1380
Physical Exam
-
General: No Apparent Distress
HEENT: Normocephalic, Atraumatic and Tracheotomy
Respiratory: Clear to Auscultation; Negative Wheezes
Cardiac: Regular Rhythm and S1/S2
GI: Soft and Peg Tube
Genito-urinary: No Costovertebral Tender
Musculoskeletal: No Edema
Neuro: AO x 3
Hematologic / Lymphatic: No Lymphadenopathy
Psych: Calm
Data Reviewed
-
Total Time Spent with Patient (in minutes): 41
Labs: Labs Reviewed by me
--- NOTE | 2024-06-01 10:43 | VNURNOTE ---
Pending TF pump tubing approval by DME. Spoke with Jules at [employer] who is working on if Feed n' Flush tubing is supplied (Y pump tubing with formula and water flush concurrently). If not supplied by [employer], would use standard TF pump tubing and
would be taught hourly water flushes. Waiting for call back.
[2024-06-01 14:34] VITALS: BP 122/73; BP_SYST 83
--- NOTE | 2024-06-01 14:35 | VNURNOTE ---
Spoke with Melissa at [facility]. She confirms delivery is set up for DME for tomorrow in the home. She will not have an ETA until tomorrow AM. Daughter Gissell aware of timeline. Hospitalist and CM aware as well. [facility] reactor fueling supervisor Yolie notified.
[2024-06-01] MEDS: ANCEF 10 IV (15:05)
--- NOTE | 2024-06-01 15:16 | CM ---
Case management following for discharge planning
Chart reviewed. Spoke with pts daughter at bedside
Pt for discharge to home - with [facility] - DME ordered - to be delivered tomorrow. Teaching to be done be home care chaplain
Family to provide care - trach/tube feedings
CM will follow for discharge needs
Plan - anticipate home with [facility]
--- NOTE | 2024-06-01 15:43 | PTCARENOTE ---
Pt is alert and oriented x3. Denies any pain. Tolerating tube feed well. Tube feed has been on hold since approx 1030 for port placement today. Trach care done by RN and daughter at the bedside. Daughter eager to learn. Pt suctioned twice so far
this shift with relief. Pt is an assist x1 OOB to the commode. Rings approp for needs. No complaints at this time. VSS. Daughter is at the bedside. Call holder is within reach.
[2024-06-01 16:25] VITALS: BP 115/77; BP_SYST 58
[2024-06-01 16:40] VITALS: BP 115/77
[2024-06-01] MEDS: LOVENOX 30 MG SC (17:33)
[2024-06-01 23:35] VITALS: BP 110/66
[2024-06-02 07:41] VITALS: BP 126/73
--- NOTE | 2024-06-02 10:22 | VNURNOTE ---
Multiple calls to [facility] co. spoke with Gissell around 0900, who did not have a delivery ETA. Called back an hour later, spoke to Teressa who did not have delivery ETA, requested that she escalate this inquiry, I was placed on hold >30mins.
Spoke to Jules who will get back to this author re: delivery ETA. [facility] Intake made aware, nitroglycerin supervisor made aware.
--- NOTE | 2024-06-02 10:44 | VNURNOTE ---
Received info from Jules from [employer]: Equip ETA delivery time to patient's home today between 12-4, they will try to make delivery closer to 2pm. [facility] supervisor Yolie notified, CM and Hospitalist notified.
--- NOTE | 2024-06-02 10:45 | PTOTSP ---
OCEAN FORWARDER Note
Patient has a #4 Shiley cuffless trach and is tolerating PMV for respiration and phonation with stable vital signs. She was able to don/doff PMV.
Recommend:
1. Patient may wear Passy Wil speaking valve alone in room
2. Remove speaking valve if SpO2 <90%, RR >30, feeling SOB, if fatigued, before going to sleep, secretion build up, for medication breathing treatment.
--- NOTE | 2024-06-02 10:50 | W.PN.HOSP.TC ---
Today's Communication/Plan
-
dc today with VN
OP ENT, Onc, Rad/onc f/u
Assessment / Plan
Assessment / Plan
Assessment:
Laryngeal mass - presentation with stridor, dysphagia, weight loss
- CT Findings suspicious for approximate 2.5 cm soft tissue mass extending caudally from the larynx with encroachment upon and narrowing of the upper trachea/tracheal narrowing. Caudal extension appears to extend between the right and left lobes the
thyroid. Findings could represent malignancy with one differential diagnostic possibility atypical laryngeal carcinoma. Mass is unlikely to be thyroid in origin.
- s/p tracheotomy, direct laryngoscopy with biopsy, cervical esophagoscopy on 05/25. 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
- CT C/A/P without evidence of metastatic disease.
- ENT following for trach care; f/u OP next week
- Onc following for eventual chemotherapy; IRAD consulted for PORT placement. Systemic therapy and rad/onc consult outpatient.
Moderate pneumomediastinum
- expected post-operatively, d/w ENT and pulm
- monitor
Severe dysphagia
- failed VSE, high risk for aspiration
- s/p PEG placement 05/29; TF initiated per protocol. tolerating well.
steroid induced leukocytosis
- was on steroids prior to admission
- monitor CBC
Hyponatremia - 135, monitor for now.
Tobacco dependence - [id number] smoking history. Apparently quit 2 weeks ago.
COPD without exacerbation - she has not refilled her inhalers. Add DuoNebs as needed. Not on home oxygen. OP Pulm follow up.
Hyperlipidemia - holding statin
Hx nephrolithiasis
Osteoporosis
Hypokalemia
DVT ppx: Lovenox
Code: Full
More than 30 minutes spent in discharge including
Final examination of the patient
Summarizing hospital stay
Instructions for continuing care to all relevant caregivers
Preparation of discharge records, prescriptions, and referral forms
Total time spent (in minutes): 42
Anticipated Discharge: Today
Subjective/Interval History
-
Date of Service: June 02, 2024
no acute complaints
daughter and patient undergoing teaching session today
Objective Data
-
Vital Signs:
Vital Signs
Temp Pulse Resp BP Pulse Ox
98.2 F 76 17 126/73 97
06/02/24 07:41 06/02/24 07:41 06/02/24 07:41 06/02/24 07:41 06/02/24 07:41
I&O
06/01/24 06/02/24 06/03/24
06:59 06:59 06:59
Intake Total 840 / 840 840 / 840
Balance 840 / 840 840 / 840
Physical Exam
-
General: No Apparent Distress
HEENT: Normocephalic
Respiratory: Negative Wheezes
Cardiac: Regular Rhythm and S1/S2
GI: Soft
Musculoskeletal: No Edema
Neuro: AO x 3
Hematologic / Lymphatic: No Lymphadenopathy
Psych: Calm
Data Reviewed
-
Total Time Spent with Patient (in minutes): 42
Labs: Labs Reviewed by me
--- NOTE | 2024-06-02 10:50 | RESPNOTE ---
patient seen with Speech and RN for PMV. patient denies SOB, SpO2 95% on TC, RR 18 nonlabored and equal. patient agreeable to PMV. patient has 4.0 shiley uncuffed.
PMV placed on by this respiratory therapist. patient able to speak, with good airflow to mouth. patient tolerated about 15 minutes with PMV, SPO2 95% with PMV on RA. patient able to cough and bring sputum up to mouth to expectorate. patient coughed
up moderate amount of pale yellow/clear mucus. patient practiced placing PMV on and off. patient also practiced changing inner cannula, daughter then practiced with inner cannula. daughter using sterile technique able to change inner cannula with
confidence, quick learner. patient did not want to practice cleaning at this time.
care instructions provided regarding trach and PMV. additional supplies ordered to bedside after education. questions answered. RN updated regarding inner cannula change.
--- NOTE | 2024-06-02 10:53 | W.DS.TRANS ---
DC Summary - Contract Preparer
-
Discharge Instructions:
Discharge Diagnosis/Procedures laryngeal SCC s/p trach/PEG/PORT
Diet Tube feeding
Additional Diets 10 hr nocturnal feed of Jevity 1.5 at 40 ml hr
and 2 1 hour intermitted feeds of 240 ml for a
total of 880 ml fluid a day. Consider flushes of
40 ml hr with additional fluid through flushes
for meds.
Activity As tolerated
Other Services VN,OT,PT
Instructions:
Stand-Alone Forms:
Changes to Home Medications: No
Discharge Medications:
DC Medications w/original date entered in [employer]
simvastatin 20 mg tablet 20 mg PO QPM High Cholesterol 01/17/19
calcium carbonate 500 mg PO QPM Supplement 05/24/24
zinc sulfate 50 mg zinc (220 mg) tablet 50 mg PO QPM Supplement 05/24/24
guaifenesin 100 mg/5 mL oral liquid 200 mg (10 mL) feeding tube QID #473 mL 05/31/24
ipratropium 0.5 mg-albuterol 3 mg (2.5 mg base)/3 mL nebulization soln 3 ml inhalation R Q4HPRN PRN SOB #90 mL 05/31/24
Home Medication Changes
Pending Results: No
Total time spent discharging patient (in min): 42
[2024-06-02] MEDS: NICODERM TRANSDERMAL TRANSDERM (11:54)
[2024-06-02] MEDS: ROBITUSSIN 200 MG TUBE ×3 (11:55→21:35)
--- NOTE | 2024-06-02 12:11 | VNURNOTE ---
Spoke with Dr Josue, VN phosphatic fertilizer supervisor Yolie, nurse Sis, JASMYN Hanson. Safest option is to DC tomorrow . Aware DC tomorrow LYNNE and [facility] can see in afternoon. Daughter Michelle aware of plan and agreeable. Equipment delivery to home today.
[2024-06-02 12:40] VITALS: BP 126/73; PULSE 76
[2024-06-02] MEDS: ROBITUSSIN TUBE (14:08)
[2024-06-02 14:58] VITALS: BP 124/77
--- NOTE | 2024-06-02 15:08 | CM ---
Case management following for discharge planning
DME to be delivered today
Daughter has received teaching from nursing staff
[facility] to follow - plan to d/c tomorrow - VN to complete teaching to pt and daughters in home with home equipment when pt is home
Pt and family aware of plan
Plan - discharge to home tomorrow pending delivery of home DME
[2024-06-02] MEDS: LOVENOX 30 MG SC (18:11)
[2024-06-02 23:00] VITALS: BP 113/66
[2024-06-03 08:00] VITALS: BP 123/69
[2024-06-03] MEDS: NICODERM TRANSDERMAL 14 MG TRANSDERM (08:57)
[2024-06-03] MEDS: ROBITUSSIN 200 MG TUBE (08:57)
--- NOTE | 2024-06-03 10:19 | CM ---
Addendum entered by Margie Carolina 06/03/24 13:03:
Home O2 assessment completed - no home O2 needs
Nebulizer purchased by pts family
Daughter to transport pt home
Anika from [facility] aware pt to be discharged
Plan - home with [facility]
Original Note:
Pt for discharge
Spoke with pts daughter Michelle - DME was delivered and set-up at home
Spoke with Anika at [facility] - aware of pts d/c today - RN to see pt today at home
Met with pt and daughter at bedside - aware nurse to see pt when d/c'ed to home
Discussed IMM
Daughter to transport
Plan - home with VN
[2024-06-03 12:00] VITALS: BP 124/80
--- NOTE | 2024-06-03 12:48 | W.PN.UPDATE ---
Update Note
Progress Note Update
patient discharged yesterday, dc postponed due to VN/DME schedules
remains stable for DC today
General: No Apparent Distress
HEENT: Normocephalic
Respiratory: Negative Wheezes
Cardiac: Regular Rhythm and S1/S2
GI: Soft
Musculoskeletal: No Edema
Neuro: AO x 3
Hematologic / Lymphatic: No Lymphadenopathy
Psych: Calm
--- NOTE | 2024-06-03 14:58 | PTCARENOTE ---
while going over DC instructions, it was noted that pt was on 28% humidified oxygen but no oxygen was set up at home for the patient. It was also realized that pt was going home with a nebulizer and was not set up at home with the machine supplies.
MD notified and urgent home oxygen assessment was done, please refer to respiratory note on results. PT was successfull and 93% on room air rest and with ambulation. PT understood all Dc instructions VN to meet patient at home to go over home
needs. MD was notified to ensure home feeding schedule was accurate as pt was on 40 ml per hour here but going home on bolus feeds at home. Md aware and written orders corrected Vitals taken prior to going home, see VSS
== END 2024-06-03 13:24 | disposition home health service (06) | DRG 12 ==
LOC: 3 WEST ACU 10:18
PROVIDERS: Otolaryngology; Radiology Diagnostic Radiology; Registered Nurse; ADMITTING PHYSICIAN Hospitalist; ATTENDING PHYSICIAN Internal Medicine; CONSULT PHYSICIAN Internal Medicine Critical Care Medicine; CONSULT PHYSICIAN Internal Medicine Gastroenterology; CONSULT PHYSICIAN Internal Medicine Hematology & Oncology; CONSULT PHYSICIAN Otolaryngology Facial Plastic Surgery; EMERGENCY PHYSICIAN Emergency Medicine; FAMILY PHYSICIAN Family Medicine
PROC: 0CJS8ZZ Inspection of Larynx, Via Natural or Artificial Opening Endoscopic (ICD-10-PCS; 2024-05-24)
PROC: 0DJ08ZZ Inspection of Upper Intestinal Tract, Via Natural or Artificial Opening Endoscopic (ICD-10-PCS; 2024-05-25)
PROC: 0CBS8ZX Excision of Larynx, Via Natural or Artificial Opening Endoscopic, Diagnostic (ICD-10-PCS; 2024-05-25)
PROC: 0B110F4 Bypass Trachea to Cutaneous with Tracheostomy Device, Open Approach (ICD-10-PCS; 2024-05-25)
PROC: 5A0955Z Assistance with Respiratory Ventilation, Greater than 96 Consecutive Hours (ICD-10-PCS; 2024-05-25)
PROC: 0DH63UZ Insertion of Feeding Device into Stomach, Percutaneous Approach (ICD-10-PCS; 2024-05-29)
PROC: 3E0G76Z Introduction of Nutritional Substance into Upper GI, Via Natural or Artificial Opening (ICD-10-PCS; 2024-05-29)
PROC: 0B21XFZ Change Tracheostomy Device in Trachea, External Approach (ICD-10-PCS; 2024-05-31)
PROC: 02HV33Z Insertion of Infusion Device into Superior Vena Cava, Percutaneous Approach (ICD-10-PCS; 2024-06-01)
PROC: 0JH60WZ Insertion of Totally Implantable Vascular Access Device into Chest Subcutaneous Tissue and Fascia, Open Approach (ICD-10-PCS; 2024-06-01)
DX: C32.2 Malignant neoplasm of subglottis (principal); E44.0 Moderate protein-calorie malnutrition; Z68.1 Body mass index [BMI] 19.9 or less, adult; J96.12 Chronic respiratory failure with hypercapnia; E87.1 Hypo-osmolality and hyponatremia; E78.00 Pure hypercholesterolemia, unspecified; M81.0 Age-related osteoporosis without current pathological fracture; R63.4 Abnormal weight loss; Z87.01 Personal history of pneumonia (recurrent); J44.9 Chronic obstructive pulmonary disease, unspecified; R13.12 Dysphagia, oropharyngeal phase; D72.828 Other elevated white blood cell count; T38.0X5A Adverse effect of glucocorticoids and synthetic analogues, initial encounter; E87.6 Hypokalemia; T81.82XA Emphysema (subcutaneous) resulting from a procedure, initial encounter; Y83.8 Other surgical procedures as the cause of abnormal reaction of the patient, or of later complication, without mention of misadventure at the time of the procedure; Z80.2 Family history of malignant neoplasm of other respiratory and intrathoracic organs; Z79.52 Long term (current) use of systemic steroids; Z79.2 Long term (current) use of antibiotics; Z87.891 Personal history of nicotine dependence
CPT/HCPCS: 88305; 36561; 36600; 70491; 71045; 71260; 74177; 74221; 74230; 76937; 77001; 80048; 80053; 82805; 83735; 84100; 85025; 85027; 85610; 92507; 92523; 92610; 92611; 93005; 94640; 97116; 97163; 97166; 97535; 99152; 99153; 99285; C1788; Q9967

== ENCOUNTER 2024-06-30 22:46 | Emergency (ER) | payer OTHER, SELFPAY ==
[2024-06-30 22:50] VITALS: BP 152/80; BMI 17.2
[2024-06-30 22:52] VITALS: BP 152/80
[2024-06-30 23:00] VITALS: BP 137/91
[2024-06-30] MEDS: DUONEB 3 ML INH (23:55)
[2024-07-01] VITALS: BP 118/80
[2024-07-01 01:00] VITALS: BP 111/74
--- NOTE | 2024-07-01 01:10 | ED.GENMED ---
History of Present Illness
General
Chief Complaint: Breathing Problem
Source: patient and family
Time Seen by Provider: 06/30/24 23:11
History of Present Illness
History of Present Illness:
79-year-old female presents after she acutely became short of breath. Family is unable to suction her well at home and concerned because of her increased work of breathing continued and she seemed to be getting cyanotic. Patient offers no other
complaints. No fevers. 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
Past History
Past History
ED Past Medical History: COPD, Hypercholesterolemia and Other (Kidney stones)
ED Past Surgical History: Orthopedic and Other (Tubal ligation)
Patient has exhibited threatening behavior?: No
Social History
Tobacco: Smoker
Alcohol: None
Personal:
Living: with family
Employment: Retired
Family History
Family History: Other (Noncontributory)
Phy Exam
Physical Exam
Physical Exam:
CONSTITUTIONAL Patient alert and oriented to person, place and time. Mild distress on arrival. Vital signs reviewed.
HEAD atraumatic, normocephalic.
EYES eyelids normal to inspection, Extraocular muscles intact, Conjunctiva normal, Sclera normal.
NECK normal range of motion, Trachea midline, no jugular venous distention.
RESPIRATORY CHEST moderate respiratory distress noted, Chest expansion equal, upper airway adventitious sounds noted.
UPPER EXTREMITY range of motion normal, Motor strength normal, no cyanosis, no edema.
LOWER EXTREMITY range of motion normal, Motor strength normal, no cyanosis, no edema.
NEURO Speech normal, No focal motor deficits, Annawan coma scale 15, Memory normal, Cranial Nerves intact to screening exam.
SKIN skin warm, dry, and normal in color.
Scores
Heart Failure Risk
Heart Failure Risk Score: Not Applicable
Course
Orders/Labs/Results
Orders:
Orders
06/30/24 23:46
Ipratropium/Albuterol Sulfate [Duoneb] 3 ml INH R NOW STA
Vital Signs
Initial and Last Documented VS:
Initial Vital Signs
Temp Pulse Resp BP Pulse Ox
98.3 F 99 20 152/80 99
06/30/24 22:50 06/30/24 22:50 06/30/24 22:50 06/30/24 22:50 06/30/24 22:50
Last Documented Vital Signs
Temp Pulse Resp BP Pulse Ox
98.3 F 84 16 111/74 98
06/30/24 22:50 07/01/24 01:00 07/01/24 01:00 07/01/24 01:00 07/01/24 01:00
MDM/Problems Addressed
MDM/Problems Addressed:
Mucous plugging
*Pulse Oximetry
Patient hypoxic: no
*Critical Care Note
Total Time (30-74mins, 75-104mins- exclusive of procedures): Not Applicable
Data Reviewed
Source: patient and family
Further Testing Considered But Not Given:
Consider chest x-ray but family would like to skip it as she is feeling so much better after suctioning.
Patient Management
Escalation/DeEscalation of care consider admission/obs:
Respiratory therapist at bedside was able to suction the patient. Amounts of mucus was able to be obtained. Do not suspect infectious process. Respiratory therapy reports there was hardened mucus and recommended increased airway moisturization.
Patient appears well. Family requested no chest x-ray.
ED Attending Note
-
Portions of this chart may have been created with voice recognition software.� Occasional wrong word or��sound alike� substitutions may have occurred due to the inherent limitations of voice recognition software.
Discharge Plan
Departure
Patient Disposition: Home (Routine Discharge)
Date of Disposition: 07/01/24
Time of Disposition: 01:10
Patient with high blood pressure during this ER visit?: No
Discharge Problem:
Mucus plugging of bronchi
Instructions: Shortness of Breath (Dyspnea) (DC)
Prescriptions:
No Action
simvastatin 20 MG tablet
20 mg PO QPM
zinc sulfate 50 mg zinc (220 mg) Tablet
50 mg PO QPM
calcium carbonate 500 mg calcium (1,250 mg) Tablet
500 mg PO QPM
ipratropium-albuterol 0.5 mg-3 mg(2.5 mg base)/3 mL Solution For Nebulization
3 ml inhalation R Q4HPRN PRN (Reason: SOB) Qty: 90 0RF
guaifenesin 100 mg/5 mL Liquid
200 mg feeding tube QID Qty: 473 0RF
Referrals:
Jona Mixon DO [Family Provider] -
Activity Restrictions/Additional Instructions:
Mucous plugging
Continue your nebulizer treatments and humidified air. Return for fevers, increased work of breathing or any other concerns. Please follow-up with your doctor in the next 1 week.
Interventions
Interventions:
*Risk Screen - Suicide Last Done: 06/30/24 23:00
*General Assessment Last Done: 06/30/24 22:50
*Neglect/Abuse Screening Last Done: 06/30/24 22:50
ED- Fall Risk Assessment Last Done: 06/30/24 22:50
*ED COVID-19 Vaccine History Last Done: 06/30/24 22:50
*Nursing Disposition Last Done: 07/01/24 01:26
ED- Cardiac Assessment Last Done: 06/30/24 23:00
ED- Pulmonary Assessment Last Done: 06/30/24 23:00
Discharge Date and Time
Discharge Date/Time: 07/01/24 01:26
Print Language: GEORGIAN
== END 2024-07-01 01:26 | disposition home or self-care (01) ==
LOC: EMR 22:46
PROVIDERS: EMERGENCY PHYSICIAN Emergency Medicine; FAMILY PHYSICIAN Family Medicine
DX: T17.590A Other foreign object in bronchus causing asphyxiation, initial encounter (principal); W44.F9XA Other object of natural or organic material, entering into or through a natural orifice, initial encounter; J44.9 Chronic obstructive pulmonary disease, unspecified; E78.00 Pure hypercholesterolemia, unspecified; F17.200 Nicotine dependence, unspecified, uncomplicated; Z87.442 Personal history of urinary calculi; Z98.51 Tubal ligation status
CPT/HCPCS: 99283; 94640

== ENCOUNTER 2024-07-06 05:05 | Emergency (ER) | payer OTHER, SELFPAY ==
[2024-07-06 05:09] VITALS: BP 117/66; BMI 18.1
[2024-07-06] MEDS: VENTOLIN NEBULES 2.5 MG INH (05:37)
--- NOTE | 2024-07-06 05:38 | ED.GENMED ---
History of Present Illness
General
Chief Complaint: Breathing Problem
Source: patient, family (Daughter who is at bedside) and previous hospital records (Hospitalization last month for stridor, unintentional weight loss, dysphagia found to have laryngeal mass-squamous cell carcinoma.)
Exam Limitations: none
Time Seen by Provider: 07/06/24 05:17
Nursing documentation reviewed up to this point in time: agreed with
History of Present Illness
History of Present Illness:
This is an 79-year-old woman who resides at home with her daughter. Recent hospitalization 1 month ago for evaluation of stridor, dysphagia and weight loss discovered to have laryngeal mass that was positive for squamous cell carcinoma. She
underwent tracheostomy, PEG tube placement as well as Port-A-Cath placement and has since followed up with oncologist at [facility] and is scheduled to start chemotherapy as well as radiation therapy July 17.
She has been maintained on humidified air via trach collar, nebulizer treatments 3 times daily and has required intermittent suctioning. She presents with shortness of breath and feeling the need to be suctioned and daughter was concerned with
inability to suction her, difficulty passing suction catheter along with some bright red blood on suction catheter. She has not been coughing up blood nor blood clots. She has not had a fever.
Similar episode occurred during ED visit July 01 where she had complete resolution of symptoms after respiratory therapist was able to suction her.
Upon arrival to the ED, respiratory therapist was able to suction for small amount of tenacious secretions with scant blood tingeing. Patient reports complete relief of dyspnea after brief suctioning procedure.
She denies chest pain, currently denies shortness of breath, no abdominal pain. She has had no vomiting. Tolerating tube feedings well. Moving her bowels normally and urinating without difficulty.
She has not had a fever.
She has not required supplemental oxygen.
Currently resting comfortably.
Past History
Past History
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
ED Past Surgical History: Orthopedic and Other (Tubal ligation; tracheostomy, PEG tube placement and Port-A-Cath placement May 2024)
Patient has exhibited threatening behavior?: No
Social History
Tobacco: Former smoker (Quit smoking prior to hospitalization May 2024.)
Alcohol: None
Personal:
Living: with family
Employment: Retired
Family History
Family History: Other (Noncontributory)
Phy Exam
Physical Exam
Physical Exam:
GENERAL: 79-year-old female, thin build, appears her stated age, awake and alert, appears in no acute distress. Currently resting comfortably. Daughter is accompanying.
EYE: pupils equal and reactive. anicteric
NECK: Tracheostomy in place. Site is clean and dry. No acute hemoptysis.
ENT: posterior pharynx is clear, no blood appreciated posteriorly, oral mucosa is moist. No rhinorrhea.
CARDIAC: Regular rate and rhythm. no murmur.
LUNGS: no acute respiratory distress, few scattered expiratory wheezes with mildly decreased breath sounds throughout, no rales or rhonchi.
ABDOMEN: PEG tube left upper quadrant, site is clean and dry. Abdomen is soft, nondistended, without focal tenderness, normoactive BS.
NEUROLOGICAL: Alert and oriented x3, no focal neuro deficits.
SKIN: Warm and dry, normal color, skin intact. No rash.
MUSCULOSKELETAL: No C/C/E. peripheral pulses are full and equal b/l. No palpable tenderness.
PSYCH: Normal and appropriate interaction.
Scores
Heart Failure Risk
Heart Failure Risk Score: Not Applicable
Course
Orders/Labs/Results
Orders:
Orders
07/06/24 05:11
Electrocardiogram (*1) Urgent
Reason for Study: Other
Other Reason for Exam: Respiratory Distress
Cardiac Monitoring- Treatment ONCE
EKG- Treatment ONCE
IV Insert/Care/Rem.- Treatment PRN
O2 Therapy [RESP] Urgent
Titrate/Wean O2 to maintain O2 sat greater than (%): 93
Special Instructions: TO MAINTAIN CONTINUOUS O2 SATS >/= 93%
Pulse Ox/cont/shift [RESP] Urgent
Quantity: 1
Special Instructions: continuous pulse ox
07/06/24 05:32
Complete Blood Count/With Diff Urgent
Comprehensive Metabolic Panel Urgent
07/06/24 05:36
Albuterol Nebs [Ventolin Nebules] 2.5 mg INH R NOW STA
07/06/24 06:22
Dextrose 5%/0.45%Sodchl 1000ML [D5/0.45%NaCl] 1,000 ml IV 1,000 mls/hr
Abnormal Lab Results
07/06/24
05:32
RDW 15.4 H %
(11.5-14.5)
MPV 12.3 H fL
(7.4-10.4)
Abs Immat Gran (auto) 0.1 H 10^3/uL
(0-0.05)
Immature Gran % 0.6 H %
(0-0.5)
Lymphocytes % 18.8 L %
(20.5-51.1)
Sodium 154 H mmol/L
(135-145)
Chloride 117 H mmol/L
(98-107)
BUN 42 H mg/dl
(7-17)
Creatinine 0.4 L mg/dL
(0.6-1.0)
Glucose 136 H mg/dl
(70-99)
AST 41 H U/L
(14-36)
ALT 83 H U/L
(0-35)
Total Protein 6.2 L g/dl
(6.3-8.2)
07/06/24 05:32
07/06/24 05:32
Vital Signs
Initial and Last Documented VS:
Initial Vital Signs
Resp
21
07/06/24 05:08
Last Documented Vital Signs
Temp Pulse Resp BP Pulse Ox
98.4 F 77 15 124/56 96
07/06/24 05:09 07/06/24 06:30 07/06/24 06:30 07/06/24 06:00 07/06/24 06:30
MDM/Problems Addressed
Differential Diagnosis Includes:
Concern for recurrent mucous plugging of trachea as cause for acute respiratory distress. Other consideration is acute hemoptysis.
No evidence of significant blood from trachea nor history of hemoptysis.
Scant blood tingeing on suction catheter but no evidence of recurrent/persistent bleeding.
Respiratory distress has promptly resolved after suctioning. She continues to have no episodes of hypoxemia.
Will continue humidified air and due to episode of hemoptysis will check labs, assess for potential anemia, thrombocytopenia.
Family request to hold off on chest x-ray and this is certainly reasonable.
Chronic conditions affecting care: COPD and Cancer (Recently diagnosed laryngeal carcinoma)
*Pulse Oximetry
Patient hypoxic: no
*EKG
Interpreted by ED Provider?: Yes
Interpretation: normal
Rate: normal
Rhythm: sinus
[place]: normal axis
Interval: normal interval
QRS Pattern: normal QRS
Ischemia: no ischemia
*[employer] Interpretation
Rate: normal
Interpretation: normal
Rhythm: sinus
*Critical Care Note
Total Time (30-74mins, 75-104mins- exclusive of procedures): Not Applicable
Update Note
Update Note:
07/06/2024 0628 AM
Patient remains comfortable, resting comfortably with no return of cough nor dyspnea.
Labs revealed normal CBC but note of moderate hypernatremia as well as moderate prerenal azotemia consistent with dehydration. She has been receiving tube feedings without additional free water which is likely cause for hypernatremia, prerenal
azotemia and likely contributing to dry tracheal secretions.
Will give a liter of D5 half-normal saline and recommend initiation of free water boluses via PEG tube. 8 ounces of water via PEG tube 3 times daily with plan for prompt recheck of BMP in 2 days time.
ED Attending Note
-
Portions of this chart may have been created with voice recognition software.� Occasional wrong word or��sound alike� substitutions may have occurred due to the inherent limitations of voice recognition software.
Discharge Plan
Departure
Patient Disposition: Home (Routine Discharge)
Date of Disposition: 07/06/24
Time of Disposition: 07:03
Patient with high blood pressure during this ER visit?: No
Condition: Good
Discharge Problem:
MUCUS PLUGGING OF TRACHEA, Cough with hemoptysis, Laryngeal carcinoma, Dehydration with hypernatremia
Instructions: Dehydration, Adult ED, How to care for a tracheostomy, How to give a tube feeding
Prescriptions:
No Action
simvastatin 20 MG tablet
20 mg PO QPM
zinc sulfate 50 mg zinc (220 mg) Tablet
50 mg PO QPM
calcium carbonate 500 mg calcium (1,250 mg) Tablet
500 mg PO QPM
ipratropium-albuterol 0.5 mg-3 mg(2.5 mg base)/3 mL Solution For Nebulization
3 ml inhalation R Q4HPRN PRN (Reason: SOB) Qty: 90 0RF
guaifenesin 100 mg/5 mL Liquid
200 mg feeding tube QID Qty: 473 0RF
Referrals:
Jona Mixon DO [Family Provider] - Call in 1-3 days for appt
Activity Restrictions/Additional Instructions:
Continue tube feedings as scheduled what I want you to add free water boluses. 8 ounces 3 times daily.
Continue humidified air via trach collar and continue nebulizer treatments 3-4 times daily.
Schedule repeat blood work/BMP in 2 days time to reassess sodium as well as kidney function.
Interventions
Interventions:
*Risk Screen - Suicide Last Done: 07/06/24 05:09
*General Assessment Last Done: 07/06/24 05:09
*Neglect/Abuse Screening Last Done: 07/06/24 05:09
ED- Fall Risk Assessment Last Done: 07/06/24 05:09
*ED COVID-19 Vaccine History Last Done: 07/06/24 05:09
ED- Cardiac Assessment Last Done: 07/06/24 05:26
ED- Pulmonary Assessment Last Done: 07/06/24 05:26
Discharge Date and Time
Print Language: POLISH
[2024-07-06 05:42] LABS: % Basophils 0.6 % (0-2); % Eosinophils 2.7 % (0-6); % Immature Granulocytes 0.6 % (0-0.5); % Lymphocytes 18.8 % (20.5-51.1); % Monocytes 7.2 % (1.7-9.3); % Neutrophils 70.1 % (42.2-75.2); Absolute Basophils 0.1 10^3/uL (0-0.2); Absolute Eosinophils 0.2 10^3/uL (0-0.7); Absolute Immature Granulocytes 0.1 10^3/uL (0-0.05); Absolute Lymphocytes 1.7 10^3/uL (1.2-3.4); Absolute Monocytes 0.6 10^3/uL (0.1-0.6); Absolute Neutrophils 6.2 10^3/uL (1.4-6.5); Hemoglobin 14.2 g/dL (12.0-16.0); Mean Corpuscular Hgb 29.8 pg (27.0-31.0); Mean Corpuscular Volume 90.3 fL (81.0-99.0); Mean Platelet Volume 12.3 fL (7.4-10.4); Nucleated Red Blood Cells % 0 %; Platelet Count 201 10^3/uL (130-400); Red Blood Cell Count 4.76 10^6/uL (4.20-5.40); Red Cell Dist. Width 15.4 % (11.5-14.5); White Blood Cell Count 8.8 10^3/uL (4.8-10.8)
[2024-07-06 06:00] VITALS: BP 124/56
[2024-07-06 06:10] LABS: ALT (SGPT) 83 U/L (0-35); AST (SGOT) 41 U/L (14-36); Albumin 3.6 g/dl (3.5-5.0); Alkaline Phosphatase 84 U/L (38-126); Blood Urea Nitrogen 42 mg/dl (7-17); Calcium 9.6 mg/dl (8.4-10.2); Carbon Dioxide 24 mmol/L (22-30); Chloride 117 mmol/L (98-107); Estimated Creatinine Clearance 50 ml/min; Glucose 136 mg/dl (70-99); Sodium 154 mmol/L (135-145); Total Bilirubin 0.5 mg/dl (0.2-1.3); Total Protein 6.2 g/dl (6.3-8.2); eGFR > 60.00
[2024-07-06] MEDS: D5/0.45%NACL 1000 IV (06:39)
[2024-07-06 07:00] VITALS: BP 134/61
== END 2024-07-06 07:21 | disposition home or self-care (01) ==
LOC: EMR 05:05
PROVIDERS: EMERGENCY PHYSICIAN Emergency Medicine; FAMILY PHYSICIAN Family Medicine
DX: J39.8 Other specified diseases of upper respiratory tract (principal); C32.9 Malignant neoplasm of larynx, unspecified; R04.2 Hemoptysis; E87.1 Hypo-osmolality and hyponatremia; E86.0 Dehydration; J44.9 Chronic obstructive pulmonary disease, unspecified; E78.00 Pure hypercholesterolemia, unspecified
CPT/HCPCS: 94640; 96360; 99284; 80053; 85025; 93005

== ENCOUNTER 2024-08-01 02:32 | Emergency (ER) | payer OTHER, SELFPAY ==
[2024-08-01 02:34] VITALS: BP 106/64
[2024-08-01 02:57] VITALS: BMI 19.2
[2024-08-01 03:00] VITALS: BP 87/59
[2024-08-01 03:22] LABS: % Basophils 0.2 % (0-2); % Immature Granulocytes 0.7 % (0-0.5); % Monocytes 3.3 % (1.7-9.3); % Neutrophils 92.8 % (42.2-75.2); Absolute Lymphocytes 0.2 10^3/uL (1.2-3.4); Absolute Monocytes 0.2 10^3/uL (0.1-0.6); Hematocrit 30.5 % (37.0-47.0); Hemoglobin 10.4 g/dL (12.0-16.0); Mean Corp Hgb Conc. 34.1 g/dL (33.0-37.0); Mean Corpuscular Volume 90.8 fL (81.0-99.0); Mean Platelet Volume 9.5 fL (7.4-10.4); Nucleated Red Blood Cells % 0 %; Platelet Count 363 10^3/uL (130-400); Red Blood Cell Count 3.36 10^6/uL (4.20-5.40); Red Cell Dist. Width 13.7 % (11.5-14.5); White Blood Cell Count 5.4 10^3/uL (4.8-10.8)
[2024-08-01 03:40] LABS: ALT (SGPT) 20 U/L (0-35); AST (SGOT) 21 U/L (14-36); Albumin 3.1 g/dl (3.5-5.0); Alkaline Phosphatase 57 U/L (38-126); Blood Urea Nitrogen 26 mg/dl (7-17); Calcium 8.7 mg/dl (8.4-10.2); Carbon Dioxide 22 mmol/L (22-30); Chloride 98 mmol/L (98-107); Estimated Creatinine Clearance 54 ml/min; Glucose 194 mg/dl (70-99); Potassium 4.2 mmol/L (3.5-5.1); Sodium 134 mmol/L (135-145); Total Bilirubin 0.2 mg/dl (0.2-1.3); Total Protein 5.4 g/dl (6.3-8.2); eGFR > 60.00
[2024-08-01 03:58] LABS: NT-proBNP 597 pg/ml
[2024-08-01 04:01] VITALS: BP 97/67
--- NOTE | 2024-08-01 04:03 | ED.GENMED ---
History of Present Illness
<Gerardo Montague MD, Resident - Last Filed: 08/01/24 05:19>
General
Chief Complaint: Breathing Problem
Source: family
Time Seen by Provider: 08/01/24 02:43
History of Present Illness
History of Present Illness:
79-year-old female recently diagnosed with SCC of larynx actively undergoing chemoradiation. Last chemo session was yesterday. Earlier this a.m., they noticed she suddenly woke up being short of breath and turning cyanotic for about 5 minutes. O2
sat was around 30% at that time. Family decided to pull cannula out which seemed to help with improving oxygen levels, going back to the 80s before EMS arrived. Family have also noticed bilateral foot swelling up to the ankle. Deny recent fever.
Denies history of blood clots. Did they gave her a dose of Ativan before EMS arrived to calm her down.
Family mention they had difficulty inserting the cannula back inside the trach.
Past History
<Gerardo Montague MD, Resident - Last Filed: 08/01/24 05:19>
Past History
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
ED Past Surgical History: Orthopedic and Other (Tubal ligation; tracheostomy, PEG tube placement and Port-A-Cath placement May 2024)
Patient has exhibited threatening behavior?: No
Social History
Tobacco: Former smoker (Quit smoking prior to hospitalization May 2024.)
Alcohol: None
Personal:
Living: with family
Employment: Retired
Family History
Family History: Other (Noncontributory)
Review of Systems
<Gerardo Montague MD, Resident - Last Filed: 08/01/24 05:19>
Review of Systems
Allergies reviewed?: Yes
All Other Systems: ROS reviewed and negative except as documented in HPI and ROS
Phy Exam
<Gerardo Montague MD, Resident - Last Filed: 08/01/24 05:19>
General Physical Exam
General Presentation: moderate distress
General Habitus: debilitated
ENT Exam
ENT Exam: tracheostomy
Additional ENT: Site is clean and dry. No acute hemoptysis or clots
Cardiovascular Exam
Cardiovascular Exam: regular rate/rhythm, no gallop, no JVD and no murmur
Pulmonary Exam
Pulmonary Exam: lungs clear, no crackles, no wheezing and no cough
Gastrointestinal Exam
Gastrointestinal Exam: normal bowel sounds, non tender, soft, non distended and other ( PEG tube left upper quadrant, site is clean and dry.)
Neurological Exam
Neurological Exam: alert and oriented x3
Musculoskeletal Exam
Musculoskeletal Exam: full ROM and edema (2+ pitting edema bilateral feet up to ankle)
Scores
<Gerardo Montague MD, Resident - Last Filed: 08/01/24 05:19>
Heart Failure Risk
Heart Failure Risk Score: Yes
History of Stroke or TIA: No
History of intubation for respiratory distress: Yes
Heart rate on ED arrival >/= 110: No
SaO2 <90% on arrival on room air: No
HR >/=110 during 3min walk test (or too ill to perform test): No
ECG has acute ischemic changes: No
Urea >/=12mmol/L (BUN 33.6mg/dL): No
Serum CO2>/=35mmol/L: No
Troponin I or T elevated to OR Level (0.4mg/dL): No
NT-proBNP >/=5,000ng/L (5,000pg/ml): No
HF Risk Score: 2
Admission Status: MEDIUM RISK 9.2% Consider observation or discharge to home with homecare & f/u visit to PCP/[employer], or SNF for treatment
Course
<Gerardo Montague MD, Resident - Last Filed: 08/01/24 05:19>
Orders/Labs/Results
Orders:
Orders
08/01/24 02:41
EKG [Electrocardiogram (*1)] Urgent
Reason for Study: Shortness of Breath
EKG- Treatment ONCE
08/01/24 03:13
Comprehensive Metabolic Panel Urgent
08/01/24 03:14
Complete Blood Count/With Diff Urgent
Pro-BNP [NT-proBNP] Urgent
Troponin I Urgent
Comment: ADD ON
08/01/24 03:31
CR Chest Portable - 1 View Urgent
Comment:
Reason For Exam: sudden onset SOB
Reason Study Needs to be Portable: Patient Unstable
08/01/24 03:35
Add On- LAB Urgent
Tests Added?: troponin
08/01/24 04:13
Scopolamine [Transderm-Scop] 1 patch TRANSDERM NOW STA
Abnormal Lab Results
08/01/24 08/01/24
03:13 03:14
RBC 3.36 L 10^6/uL
(4.20-5.40)
Hgb 10.4 L g/dL
(12.0-16.0)
Hct 30.5 L %
(37.0-47.0)
Absolute Lymphs (auto) 0.2 L 10^3/uL
(1.2-3.4)
Immature Gran % 0.7 H %
(0-0.5)
Neutrophils % 92.8 H %
(42.2-75.2)
Lymphocytes % 3.0 L %
(20.5-51.1)
Sodium 134 L mmol/L
(135-145)
BUN 26 H mg/dl
(7-17)
Creatinine 0.4 L mg/dL
(0.6-1.0)
Glucose 194 H mg/dl
(70-99)
Total Protein 5.4 L g/dl
(6.3-8.2)
Albumin 3.1 L g/dl
(3.5-5.0)
08/01/24 03:14
08/01/24 03:13
Vital Signs
Initial and Last Documented VS:
Initial Vital Signs
Temp Pulse Resp BP Pulse Ox
98.1 F 84 22 106/64 95
08/01/24 02:34 08/01/24 02:34 08/01/24 02:34 08/01/24 02:34 08/01/24 02:34
Last Documented Vital Signs
Temp Pulse Resp BP Pulse Ox
98.1 F 70 15 97/67 95
08/01/24 02:34 08/01/24 04:45 08/01/24 04:45 08/01/24 04:01 08/01/24 04:45
<Ever Mehta, DO - Last Filed: 08/01/24 05:05>
Orders/Labs/Results
Orders:
Orders
08/01/24 02:41
EKG [Electrocardiogram (*1)] Urgent
Reason for Study: Shortness of Breath
EKG- Treatment ONCE
08/01/24 03:13
Comprehensive Metabolic Panel Urgent
08/01/24 03:14
Complete Blood Count/With Diff Urgent
Pro-BNP [NT-proBNP] Urgent
Troponin I Urgent
Comment: ADD ON
08/01/24 03:31
CR Chest Portable - 1 View Urgent
Comment:
Reason For Exam: sudden onset SOB
Reason Study Needs to be Portable: Patient Unstable
08/01/24 03:35
Add On- LAB Urgent
Tests Added?: troponin
08/01/24 04:13
Scopolamine [Transderm-Scop] 1 patch TRANSDERM NOW STA
Abnormal Lab Results
08/01/24 08/01/24
03:13 03:14
RBC 3.36 L 10^6/uL
(4.20-5.40)
Hgb 10.4 L g/dL
(12.0-16.0)
Hct 30.5 L %
(37.0-47.0)
Absolute Lymphs (auto) 0.2 L 10^3/uL
(1.2-3.4)
Immature Gran % 0.7 H %
(0-0.5)
Neutrophils % 92.8 H %
(42.2-75.2)
Lymphocytes % 3.0 L %
(20.5-51.1)
Sodium 134 L mmol/L
(135-145)
BUN 26 H mg/dl
(7-17)
Creatinine 0.4 L mg/dL
(0.6-1.0)
Glucose 194 H mg/dl
(70-99)
Total Protein 5.4 L g/dl
(6.3-8.2)
Albumin 3.1 L g/dl
(3.5-5.0)
08/01/24 03:14
08/01/24 03:13
Vital Signs
Initial and Last Documented VS:
Initial Vital Signs
Temp Pulse Resp BP Pulse Ox
98.1 F 84 22 106/64 95
08/01/24 02:34 08/01/24 02:34 08/01/24 02:34 08/01/24 02:34 08/01/24 02:34
Last Documented Vital Signs
Temp Pulse Resp BP Pulse Ox
98.1 F 70 15 97/67 95
08/01/24 02:34 08/01/24 04:45 08/01/24 04:45 08/01/24 04:01 08/01/24 04:45
<Gerardo Montague MD, Resident - Last Filed: 08/01/24 05:19>
MDM/Problems Addressed
Differential Diagnosis Includes:
tracheostomy dysfunction due to mucus plug/ excessive suctioning, respiratory tract infection, pulmonary emboli (less likely)
MDM/Problems Addressed:
CXR was ordered which showed trach in normal place. No acute abnormalities were seen in the lungs. Suctioning was performed and cannula was placed back in. Trach education was given to family. Patient's O2sat levels remained normal during stay.
<Ever Mehta, DO - Last Filed: 08/01/24 05:05>
*Radiology
Radiology exam reviewed: preliminary read by ED provider (Chest x-ray no acute findings)
*Pulse Oximetry
Patient hypoxic: no
*[employer] Interpretation
Rate: normal
Interpretation: normal
Heart Rate: 78
Rhythm: sinus
*Critical Care Note
Total Time (30-74mins, 75-104mins- exclusive of procedures): Not Applicable
<Ever Mehta, DO - Last Filed: 08/01/24 05:05>
Patient Management
Escalation/DeEscalation of care consider admission/obs:
admit not indicated
ED Attending Note
<Gerardo Montague MD, Resident - Last Filed: 08/01/24 05:19>
-
Portions of this chart may have been created with voice recognition software.� Occasional wrong word or��sound alike� substitutions may have occurred due to the inherent limitations of voice recognition software.
<Ever Mehta DO - Last Filed: 08/01/24 05:05>
ED Attending Note
Patient seen and examined by attending physician: Yes
ED Attending Note:
I have reviewed and agree with history and treatment plan by Gerardo Montague. My exam revealed
Physical Exam
General: no apparent distress, chronic ill appearance
Neck: supple. no meningeal signs. normal posterior pharynx
Heart: s1/s2 regular rate and rhythm, no murmur. equal radial
pulses.
HEENT: Pupils equal round reactive to light, EOMI
Lungs: no acute respiratory distress. clear bilaterally
Abdomen: normal bowel sounds. not tender. no CVAT, gastric tube
Neuro: alert and oriented. no focal neurological deficits
Skin: no rash
Psychiatric: well kept. interactive and cooperative
Extremities: no edema. good distal pulses
Patient improved after replacement of tracheostomy and suctioning. Stable for discharge. No signs of pneumonia
Discharge Plan
Departure
Patient Disposition: Home (Routine Discharge)
Date of Disposition: 08/01/24
Time of Disposition: 04:31
Patient with high blood pressure during this ER visit?: No
Condition: Fair
Discharge Problem:
Cough with hemoptysis, Moderate protein-calorie malnutrition
Instructions: How to care for a tracheostomy, BLOOD PRESSURE
Prescriptions:
New
scopolamine base 1 mg over 3 days patch 3 day
1 patch transdermal Q3D PRN (Reason: excessive secretions) Qty: 4 0RF
No Action
simvastatin 20 MG tablet
20 mg PO QPM
zinc sulfate 50 mg zinc (220 mg) Tablet
50 mg PO QPM
calcium carbonate 500 mg calcium (1,250 mg) Tablet
500 mg PO QPM
ipratropium-albuterol 0.5 mg-3 mg(2.5 mg base)/3 mL Solution For Nebulization
3 ml inhalation R Q4HPRN PRN (Reason: SOB) Qty: 90 0RF
guaifenesin 100 mg/5 mL Liquid
200 mg feeding tube QID Qty: 473 0RF
Referrals:
Jona Mixon DO [Family Provider] - Call in 1-3 days for appt
Interventions
Interventions:
*Risk Screen - Suicide Last Done: 08/01/24 02:40
*General Assessment Last Done: 08/01/24 02:34
*Neglect/Abuse Screening Last Done: 08/01/24 02:40
ED- Fall Risk Assessment Last Done: 08/01/24 03:02
*ED COVID-19 Vaccine History Last Done: 08/01/24 02:40
*Nursing Disposition Last Done: 08/01/24 05:10
ED- Cardiac Assessment Last Done: 08/01/24 03:02
ED- Pulmonary Assessment Last Done: 08/01/24 03:02
Discharge Date and Time
Discharge Date/Time: 08/01/24 05:11
Print Language: UPPER SORBIAN
[2024-08-01] MEDS: TRANSDERM-SCOP 1 PATCH TRANSDERM (04:24)
[2024-08-01 05:19] LABS: Troponin I 0.022 ng/ml
== END 2024-08-01 05:11 | disposition home or self-care (01) ==
LOC: EMR 02:32
PROVIDERS: EMERGENCY PHYSICIAN Emergency Medicine; FAMILY PHYSICIAN Family Medicine
DX: R05.9 Cough, unspecified (principal); R04.2 Hemoptysis; E44.0 Moderate protein-calorie malnutrition; R06.02 Shortness of breath; R22.43 Localized swelling, mass and lump, lower limb, bilateral; J44.9 Chronic obstructive pulmonary disease, unspecified; E78.00 Pure hypercholesterolemia, unspecified; C32.9 Malignant neoplasm of larynx, unspecified; Z51.0 Encounter for antineoplastic radiation therapy; Z85.21 Personal history of malignant neoplasm of larynx; Z87.442 Personal history of urinary calculi; Z87.891 Personal history of nicotine dependence; Z98.51 Tubal ligation status
CPT/HCPCS: 99283; 71045; 80053; 83880; 84484; 85025; 93005

== ENCOUNTER 2024-08-01 20:15 | Inpatient (IN) | payer OTHER, SELFPAY ==
[2024-08-01] VITALS (8 sets, daily range): BP systolic 99–118; BP diastolic 57–75; BMI 19.5
--- NOTE | 2024-08-01 16:23 | ED.GENMED ---
History of Present Illness
<Soheila Mesa PA-C - Last Filed: 08/01/24 19:41>
General
Chief Complaint: Breathing Problem
Source: patient
Exam Limitations: none
Time Seen by Provider: 08/01/24 16:20
Nursing documentation reviewed up to this point in time: agreed with
History of Present Illness
History of Present Illness:
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 Family reports that patient has had multiple
episodes where she becomes cyanotic, hypoxic, and obtunded. Family reports that these episodes usually lasts around 5 minutes. She had an episode this morning and they brought patient to emergency department. She seemed to improve after adequate
suctioning, she had normal workup at the time. I suspect that she might have a mucous plug. This episode occurred a few hours later again but lasted longer than normal and they called EMS once again and she was brought to emergency department
today. EMS found her at around 70% on room air. Here in the emergency department, she is paced on 15 L via tracheostomy, she does have scattered rhonchi on exam. She is not able to provide much history due to limited speaking from her cancer.
She shakes her head no to abdominal pain, nausea, vomiting, fevers, chills, hemoptysis
Past History
<Soheila Mesa PA-C - Last Filed: 08/01/24 19:41>
Past History
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
ED Past Surgical History: Orthopedic and Other (Tubal ligation; tracheostomy, PEG tube placement and Port-A-Cath placement May 2024)
Patient has exhibited threatening behavior?: No
Social History
Tobacco: Former smoker (Quit smoking prior to hospitalization May 2024.)
Alcohol: None
Personal:
Living: with family
Employment: Retired
Family History
Family History: Other (Noncontributory)
Review of Systems
<Soheila Mesa PA-C - Last Filed: 08/01/24 19:41>
Review of Systems
All Other Systems: ROS reviewed and negative except as documented in HPI and ROS
Phy Exam
<Soheila Mesa PA-C - Last Filed: 08/01/24 19:41>
Physical Exam
Physical Exam:
General: Patient chronically ill-appearing, frail, acute respiratory distress
Skin: Warm and dry, pallor noted.
Head: Normocephalic, atraumatic
Eyes: Sclera non-icteric. EOMs intact. PERRLA.
Cardiac: Regular rate and rhythm, no murmurs.
Peripheral Vascular: No lower extremity swelling or edema
Pulm: Increased respiratory rate, diffuse rhonchi bilaterally
Abdomen: No abdominal tenderness to palpation
Neuro: CN II-XII intact, no focal neurologic deficits.
Psychiatric: Appropriate mood and affect.
Scores
<Soheila Mesa PA-C - Last Filed: 08/01/24 19:41>
Heart Failure Risk
Heart Failure Risk Score: Not Applicable
Course
<Soheila Mesa PA-C - Last Filed: 08/01/24 19:41>
Orders/Labs/Results
Orders:
Orders
08/01/24 16:44
CMP [Comprehensive Metabolic Panel] Urgent
Complete Blood Count/With Diff Urgent
08/01/24 16:50
Electrocardiogram (*1) Urgent
Reason for Study: Shortness of Breath
EKG- Treatment ONCE
Ipratropium/Albuterol Sulfate [Duoneb] 3 ml INH R NOW STA
CR Chest Portable - 1 View Urgent
Comment:
Reason For Exam: sob
Reason Study Needs to be Portable: Patient Unstable
08/01/24 17:09
ABG [Arterial Blood Gas] Urgent
%Oxygen/Room Air: ra
08/01/24 18:29
CT Chest Pe Study Urgent
Comment:
Reason For Exam: hypoxia, tachycardia
08/01/24 19:24
Add On- LAB Stat
Tests Added?: iron,ferritin, b12, folate TIBC
Abnormal Lab Results
08/01/24 08/01/24
16:44 17:09
WBC 11.7 H 10^3/uL
(4.8-10.8)
RBC 3.53 L 10^6/uL
(4.20-5.40)
Hgb 10.5 L g/dL
(12.0-16.0)
Hct 31.3 L %
(37.0-47.0)
Plt Count 444 H D 10^3/uL
(130-400)
Abs Immat Gran (auto) 0.1 H 10^3/uL
(0-0.05)
Absolute Neuts (auto) 10.4 H 10^3/uL
(1.4-6.5)
Absolute Lymphs (auto) 0.3 L 10^3/uL
(1.2-3.4)
Absolute Monos (auto) 0.9 H 10^3/uL
(0.1-0.6)
Neutrophils % 89.5 H %
(42.2-75.2)
Lymphocytes % 2.3 L %
(20.5-51.1)
pCO2 40 H mmHg
(32-35)
pO2 125 H mmHg
(83-108)
ABG O2 Sat (Measured) 100.0 H %
(94-98)
BUN 27 H mg/dl
(7-17)
Creatinine 0.4 L mg/dL
(0.6-1.0)
Glucose 132 H mg/dl
(70-99)
Total Protein 5.8 L g/dl
(6.3-8.2)
Albumin 3.4 L g/dl
(3.5-5.0)
08/01/24 16:44
08/01/24 16:44
Vital Signs
Initial and Last Documented VS:
Initial Vital Signs
Temp Pulse Resp BP Pulse Ox
98.4 F 90 21 111/75 97
08/01/24 16:19 08/01/24 16:19 08/01/24 16:19 08/01/24 16:19 08/01/24 16:19
Last Documented Vital Signs
Temp Pulse Resp BP Pulse Ox
98.4 F 76 19 111/75 98
08/01/24 16:26 08/01/24 19:22 08/01/24 19:15 08/01/24 16:26 08/01/24 19:15
<Ace Salazar, DO - Last Filed: 08/01/24 16:52>
Orders/Labs/Results
Orders:
Orders
08/01/24 16:44
CMP [Comprehensive Metabolic Panel] Urgent
Complete Blood Count/With Diff Urgent
08/01/24 16:50
Electrocardiogram (*1) Urgent
Reason for Study: Shortness of Breath
EKG- Treatment ONCE
Ipratropium/Albuterol Sulfate [Duoneb] 3 ml INH R NOW STA
CR Chest Portable - 1 View Urgent
Comment:
Reason For Exam: sob
Reason Study Needs to be Portable: Patient Unstable
08/01/24 17:09
ABG [Arterial Blood Gas] Urgent
%Oxygen/Room Air: ra
08/01/24 18:29
CT Chest Pe Study Urgent
Comment:
Reason For Exam: hypoxia, tachycardia
08/01/24 19:24
Add On- LAB Stat
Tests Added?: iron,ferritin, b12, folate TIBC
Abnormal Lab Results
08/01/24 08/01/24
16:44 17:09
WBC 11.7 H 10^3/uL
(4.8-10.8)
RBC 3.53 L 10^6/uL
(4.20-5.40)
Hgb 10.5 L g/dL
(12.0-16.0)
Hct 31.3 L %
(37.0-47.0)
Plt Count 444 H D 10^3/uL
(130-400)
Abs Immat Gran (auto) 0.1 H 10^3/uL
(0-0.05)
Absolute Neuts (auto) 10.4 H 10^3/uL
(1.4-6.5)
Absolute Lymphs (auto) 0.3 L 10^3/uL
(1.2-3.4)
Absolute Monos (auto) 0.9 H 10^3/uL
(0.1-0.6)
Neutrophils % 89.5 H %
(42.2-75.2)
Lymphocytes % 2.3 L %
(20.5-51.1)
pCO2 40 H mmHg
(32-35)
pO2 125 H mmHg
(83-108)
ABG O2 Sat (Measured) 100.0 H %
(94-98)
BUN 27 H mg/dl
(7-17)
Creatinine 0.4 L mg/dL
(0.6-1.0)
Glucose 132 H mg/dl
(70-99)
Total Protein 5.8 L g/dl
(6.3-8.2)
Albumin 3.4 L g/dl
(3.5-5.0)
08/01/24 16:44
08/01/24 16:44
Vital Signs
Initial and Last Documented VS:
Initial Vital Signs
Temp Pulse Resp BP Pulse Ox
98.4 F 90 21 111/75 97
08/01/24 16:19 08/01/24 16:19 08/01/24 16:19 08/01/24 16:19 08/01/24 16:19
Last Documented Vital Signs
Temp Pulse Resp BP Pulse Ox
98.4 F 76 19 111/75 98
08/01/24 16:26 08/01/24 19:22 08/01/24 19:15 08/01/24 16:26 08/01/24 19:15
<Soheila Mesa PA-C - Last Filed: 08/01/24 19:41>
MDM/Problems Addressed
Differential Diagnosis Includes:
Differentials include mucous plug, pneumonia, tracheitis, metastatic cancer, pleural effusion, heart
MDM/Problems Addressed:
79-year-old female with past medical history of laryngeal cancer with a tracheostomy in place presents emergency department today with increasing episodes of hypoxia and respiratory distress. The longest episode happened prior to arrival to
emergency department today, she has hypoxia 70% on room air and cyanotic. She was put on 15 L and was eventually weaned down to 4 L however when attempting to wean back to room air, she becomes very pale and her respiratory rate increases. Family
is concerned that if they take her home today these episodes will happen again and she will continue to decline. There is discussion about starting palliative versus hospice care. Her CBC shows a small leukocytosis and an elevated platelet count,
her CMP shows elevated BUN to creatinine ratio with low total protein. Will admit for workup of hypoxia, chest x-ray normal, EKG shows normal sinus rhythm.
Chronic conditions affecting care:
n/a
Acute Exacerbation and/or Progression of Chronic Illness:
n/a
<Soheila Mesa PA-C - Last Filed: 08/01/24 19:41>
*Critical Care Note
Total Time (30-74mins, 75-104mins- exclusive of procedures): Not Applicable
ED Attending Note
<Soheila Mesa PA-C - Last Filed: 08/01/24 19:41>
-
Portions of this chart may have been created with voice recognition software.� Occasional wrong word or��sound alike� substitutions may have occurred due to the inherent limitations of voice recognition software.
<Ace Salazar DO - Last Filed: 08/01/24 16:52>
ED Attending Note
Patient seen and examined by attending physician: Yes
I performed the substantive portion of visit, reviewed & personally made and approve the management plan that is documented in note by myself or JIMENEZ.: Yes
ED Attending Note:
seen with Pa, trached, cancer pt, returns obtunded, low sats, similar yesterday, ? mucus plugging, no thick secrations now, will check ABG/CXR/EKG
Discharge Plan
Departure
Patient Disposition: Admit
Date of Disposition: 08/01/24
Time of Disposition: 18:30
Presentation/result/management discussed w/ accepting MD/DO: Hospitalist
Patient with high blood pressure during this ER visit?: No
Condition: Fair
Discharge Problem:
Acute hypoxemic respiratory failure
Prescriptions:
No Action
scopolamine base 1 mg over 3 days patch 3 day
1 patch transdermal Q3D PRN (Reason: excessive secretions) Qty: 4 0RF
lorazepam 2 mg/mL concentrate
0.5 mg feeding tube Q8HPRN PRN (Reason: anxiety)
acetaminophen liquid
1 dose feeding tube Q6HPRN PRN (Reason: mild pain)
ipratropium-albuterol 0.5 mg-3 mg(2.5 mg base)/3 mL solution for nebulization
3 ml inhalation R Q6HPRN PRN (Reason: SOB)
guaifenesin 100 mg/5 mL liquid
200 mg feeding tube QID@08,12,16,20
Referrals:
Jona Mixon DO [Family Provider] -
Interventions
Interventions:
*Risk Screen - Suicide Last Done: 08/01/24 16:26
*General Assessment Last Done: 08/01/24 16:35
*Neglect/Abuse Screening Last Done: 08/01/24 16:35
ED- Fall Risk Assessment Last Done: 08/01/24 16:33
*ED COVID-19 Vaccine History Last Done: 08/01/24 16:35
ED- Cardiac Assessment Last Done: 08/01/24 16:33
ED- Pulmonary Assessment Last Done: 08/01/24 16:36
Discharge Date and Time
Print Language: KAZAKH
[2024-08-01 16:52] LABS: % Basophils 0.3 % (0-2); % Immature Granulocytes 0.5 % (0-0.5); % Lymphocytes 2.3 % (20.5-51.1); % Monocytes 7.4 % (1.7-9.3); % Neutrophils 89.5 % (42.2-75.2); Absolute Immature Granulocytes 0.1 10^3/uL (0-0.05); Absolute Lymphocytes 0.3 10^3/uL (1.2-3.4); Absolute Monocytes 0.9 10^3/uL (0.1-0.6); Absolute Neutrophils 10.4 10^3/uL (1.4-6.5); Hematocrit 31.3 % (37.0-47.0); Hemoglobin 10.5 g/dL (12.0-16.0); Mean Corp Hgb Conc. 33.5 g/dL (33.0-37.0); Mean Corpuscular Hgb 29.7 pg (27.0-31.0); Mean Corpuscular Volume 88.7 fL (81.0-99.0); Mean Platelet Volume 9.4 fL (7.4-10.4); Nucleated Red Blood Cells % 0 %; Platelet Count 444 10^3/uL (130-400); Red Blood Cell Count 3.53 10^6/uL (4.20-5.40); Red Cell Dist. Width 14.1 % (11.5-14.5); White Blood Cell Count 11.7 10^3/uL (4.8-10.8)
[2024-08-01 17:09] LABS: ALT (SGPT) 20 U/L (0-35); AST (SGOT) 24 U/L (14-36); Albumin 3.4 g/dl (3.5-5.0); Alkaline Phosphatase 66 U/L (38-126); Blood Urea Nitrogen 27 mg/dl (7-17); Calcium 8.9 mg/dl (8.4-10.2); Carbon Dioxide 28 mmol/L (22-30); Chloride 98 mmol/L (98-107); Glucose 132 mg/dl (70-99); Potassium 4.7 mmol/L (3.5-5.1); Sodium 135 mmol/L (135-145); Total Bilirubin 0.3 mg/dl (0.2-1.3); Total Protein 5.8 g/dl (6.3-8.2); eGFR > 60.00
[2024-08-01 17:18] LABS: HCO3 26.5 mmol/L (21-28); PCO2 40 mmHg (32-35); PO2 125 mmHg (83-108); pH 7.43 (7.35-7.45)
[2024-08-01] MEDS: DUONEB 3 ML INH (18:38)
--- NOTE | 2024-08-01 18:52 | HPS.HSE ---
Family Physician
-
Family Physician: Jona Mixon
Chief Complaint
-
syncope
History of Present Illness
79-year-old female recently diagnosed with SCC of larynx actively undergoing chemoradiation presented to us with sob and cyanotic which lasted for few minutes. this happened 3-4 times in past 24 hours. she was presented in ER twice, suctioning was
performed and cannula was placed back in. she felt better and was sent home twice. today she got her radiation in the morning. later in the evening, she was sob and blacked out again which prompted them to call 911. at present, patient requiring 4l
of oxygen. she has progressive worsening cough. she was constipated few weeks ago. she was started on stool regimen. she started having diarrhea and now she is on Imodium. family at the bedside denied any fever, chills. she was complaining of upper
chest pain with cough. patient is incontinence of bowel and bladder.
chest x ray with COPD, no acute disease of the chest . patient on supplemental oxygen. sleeping received nebs in ER. admitting for further management.
Medical History
Past Medical History
Past Medical History: Reports Other
Additional Past Medical History:
Hyperlipidemia
Kidney stones
COPD
Pneumonia
Tubularization
laryngeal ca
Past Surgical History: Reports Other
Additional Past Surgical History:
Right uteroscopy with laser litho and stent
Right distal radius ORIF
Social History
Tobacco: Former Smoker
Alcohol: None
Drug: None
Living: With Family
Family History
Family History: Not pertinent
Allergies / Home Medications
Allergies reflects when Allergies were last updated in [facility].
Home Medications with original date entered in [facility]
Allergy/Medication List:
Allergies
Allergy/AdvReac Type Severity Reaction Status Date / Time
No Known Allergies Allergy Verified 07/06/24 05:08
Home Medications
acetaminophen 1 dose feeding tube Q6HPRN PRN mild pain 08/01/24
guaifenesin 100 mg/5 mL oral liquid 200 mg feeding tube QID@08,12,16,20 08/01/24
ipratropium 0.5 mg-albuterol 3 mg (2.5 mg base)/3 mL nebulization soln 3 ml inhalation R Q6HPRN PRN SOB 08/01/24
lorazepam 2 mg/mL oral concentrate 0.5 mg feeding tube Q8HPRN PRN anxiety 08/01/24
scopolamine base 1 mg over 3 days transdermal patch 1 patch transdermal Q3D PRN excessive secretions #4 ea 08/01/24
Review of Systems
-
Constitutional: Reports No Symptoms
EENT: Reports No Symptoms
Respiratory: Reports Cough and Trouble Breathing
Cardiac: Reports Chest Pain
Abdomen/GI: Reports No Symptoms
: Reports No Symptoms
Musculoskeletal: Reports Edema (LE edema)
Skin: Reports No Symptoms
Neurological: Reports No Symptoms
Endocrine: Reports No Symptoms
Hematologic/Lymphatic: Reports No Symptoms
Psych: Reports No Symptoms
Physical Exam
Vital Signs
Vital Signs
Temp Pulse Resp BP Pulse Ox
98.4 F 95 20 111/75 98
08/01/24 16:26 08/01/24 16:26 08/01/24 16:26 08/01/24 16:26 08/01/24 16:26
Physical Exam
General: Well Developed, Well Nourished and No Apparent Distress
HEENT: NormoCephalic, Moist mucous membranes and Atraumatic
Respiratory: Decreased Breath Sounds
Cardiac: S1/S2 and Regular Rhythm; No Murmur or Rub
GI: Soft, Non Tender, Non Distended and Normal Bowel Sounds; No Organomegaly
Rectal: Deferred by Provider
Musculoskeletal: No Clubbing, No Cyanosis and No Edema
Skin: No Rash
Neuro: Nonfocal/grossly intact
Psych: Calm
Laboratory Results
-
08/01/24 16:44
08/01/24 16:44
Laboratory Results
pH 7.43 (7.35-7.45) 08/01/24 17:09
pCO2 40 mmHg (32-35) H 08/01/24 17:09
pO2 125 mmHg (83-108) H 08/01/24 17:09
HCO3 26.5 mmol/L (21-28) 08/01/24 17:09
Total Bilirubin 0.3 mg/dl (0.2-1.3) 08/01/24 16:44
AST 24 U/L (14-36) 08/01/24 16:44
ALT 20 U/L (0-35) 08/01/24 16:44
Alkaline Phosphatase 66 U/L (38-126) 08/01/24 16:44
Data Reviewed
-
Diagnostic Radiology: Report Reviewed by me
Lab Data: Labs Reviewed by me
Impression/Plan
-
#Acute hypoxia
# Trach in place with history of laryngeal cancer
-At present on 4 L
-WBCs 11.7
-CT chest pending
-nebs continued for sob/wheezing
-continue supplemental oxygen to keep sat>92
-wean as tolerated
-pulmonary consulted
# Acute normocytic anemia
-No active bleeding
-Obtain iron panel
#Laryngeal mass
- s/p tracheotomy, direct laryngoscopy with biopsy, cervical esophagoscopy on 05/25. 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
-at present on chemo radiation therapy
-follows [facility]
#Severe dysphagia
- s/p PEG placement 05/29; TF initiated per protocol. tolerating well.
-nutrition/card tender consulted
-fluids continued for hydration
#COPD without exacerbation
#anxiety
-lorazepam continued
DVT ppx: Lovenox
Code: CPR but no intubation.
[2024-08-01 20:06] LABS: Iron 191 ug/dl (37-170)
[2024-08-01 20:15] LABS: Percent Saturation 74 % (20-50); Total Iron Binding Capacity 255 ug/dl (265-497)
[2024-08-01 21:30] LABS: Folate 13.2 ng/ml (2.76-20); Vitamin B12 739 pg/ml (239-931)
[2024-08-01] MEDS: FLUSH (NSS) 1 FLUSH IV (21:31)
--- NOTE | 2024-08-01 23:38 | W.PN.UPDATE ---
Update Note
Progress Note Update
Patient seen in conjunction with [facility]. I agree with findings on history and physical as well as assessment and plan unless stated otherwise.
This is an 79-year-old with past medical history of esophageal cancer who is status post trach and PEG and has been discharged from the hospital since end of May with a trach and is currently on cycles of chemotherapy and radiation presenting to
the emergency department with repeated episode of hypoxia. Patient was presented to the ED 1 day ago with an hypoxic episode. At the time the patient had copious secretions at home and she was suctioned at home. In a cannula was removed from the
trach. It could not be placed back by the family. She became cyanotic and hypoxic to the low 50s on pulse ox. This was lasting minutes and EMS was called. Patient had normal CXR ad improved after replacement of tracheostomy and adequate
suctioning. She returns this evening with another prolonged episode that occurred after discharge earlier today was found to be hypoxic to 70% with EMS and is not improving with suctioning currently weaned from 15 L to 4 L via trach collar. Repeat
CXR from today appears largely unchanged.
She was afebrile blood pressure was 117/75 pulse 95 she was satting 90% on trach collar. She had a white count of 11.7 the rest of her chemistries were unremarkable. A CT PE was conducted which showed no evidence of PE or acute pulmonary process.
When I saw her patient was on 28% FiO2 satting 95% with no increased work of breathing. On my exam there was no stridor. There were no secretions coming from the trach.
Assessment and plan
Hypoxic episodes - Related to airway mechanical issues, e.g Trach secretions vs stenosis. Currently has good sat on 28% FIO2.
- admit to telemetry
- continue humidified trach collar at 28% for now, can titrate as tolerated
- nebs prn
- antitussives
- pulmonary consult
- has outpatient ENT
- s/p PEG, maintenance fluids for now, nutrition consult
H&N-
- s/p tracheotomy, direct laryngoscopy with biopsy, cervical esophagoscopy on 8/8. 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
-at present on chemo radiation therapy
-follows [facility]
- supportive care
- consider palliative care consult
COPD - No active symptoms
- nebs as above
DVT PPX
Code Status - DNR
[2024-08-02] VITALS (41 sets, daily range): BP systolic 86–139; BP diastolic 50–88; BMI 18.1
[2024-08-02] MEDS: LR 1000 IV ×2 (00:20→12:49)
[2024-08-02] MEDS: ATIVAN 0.5 MG TUBE (00:23)
[2024-08-02] MEDS: MORPHINE SULFATE 1 MG IV ×2 (02:55→05:00)
--- NOTE | 2024-08-02 03:59 | CON.INTV ---
Consultation
Consultation Request
Date/Time Consultation Requested: 08/02/2024-2 45 AM
Date/Time Consultation Performed: 08/02/2024-3:15 AM
Requesting Provider: Hospitalist
Performing Provider: Dr. Bazan
Reason for Consultation: Mucous plugging/respiratory distress
Medical History
-
Chief Complaint: Shortness of breath
History of Present Illness:
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
family members came to the emergency room noted to have significant mucous plugging and hypoxemia-gaggerman consulted for emergent bronchoscopy and critical care management 08/02/2024. The patient is evaluated emergently in the emergency room and
she is nonverbal, in severe respiratory distress and review of systems could not be obtained. Most of the history is obtained from the chart was family members. She has had progressive shortness of breath and some mucous plugging. She has had
bloody secretions. Has been no fevers, chills, complaints of abdominal pain. She has been receiving radiation and chemotherapy. Patient is requesting hospice.
Past Medical History
Past Medical History: None (COPD. Former smoker. Laryngeal cancer status post tracheostomy. Hyperlipidemia. Renal calculi. Laser lithotripsy and stent. Distal radius fracture.)
Social History
Tobacco: Former Smoker (Three-quarter pack/day for 60 years-quit May 2022 and restarted quarter pack per day February 2023)
Alcohol: None
Drug: None
Living: With Family
Occupational Exposures: No known asbestos exposure
Environmental Exposures: No known tuberculosis exposure
Family History
Family History: Reviewed & Not Pertinent and Other (Brother-CAD. Mother-throat cancer. Son-kidney disease, CAD and skin cancer)
Allergies / Home Medications
Allergies
Allergy/AdvReac Type Severity Reaction Status Date / Time
No Known Allergies Allergy Verified 07/06/24 05:08
Home Medications
�Medication �Instructions �Recorded �Confirmed �Last Taken �Type
acetaminophen 1 dose feeding tube Q6HPRN PRN 08/01/24 08/01/24 Unknown History
mild pain
guaifenesin 100 mg/5 mL oral liquid 200 mg feeding tube QID@08,12,16,20 08/01/24 08/01/24 Unknown History
ipratropium 0.5 mg-albuterol 3 mg 3 ml inhalation R Q6HPRN PRN SOB 08/01/24 08/01/24 Unknown History
(2.5 mg base)/3 mL nebulization
soln
lorazepam 2 mg/mL oral concentrate 0.5 mg feeding tube Q8HPRN PRN 08/01/24 08/01/24 08/01/24 14:30 History
anxiety
scopolamine base 1 mg over 3 days 1 patch transdermal Q3D PRN 08/01/24 08/01/24 08/01/24 Rx
transdermal patch excessive secretions #4 ea
Review of Systems
-
Unable to Obtain full review of systems at this time due to: Other (Per HPI)
Vitals / Labs / Diagnostic Testing
Vital Signs
Temp Pulse Resp BP Pulse Ox
98.4 F 89 18 105/57 95
08/01/24 16:26 08/01/24 22:00 08/01/24 22:00 08/01/24 22:00 08/01/24 22:00
Laboratory Results
08/01/24
17:09
pH 7.43
pCO2 40 H
pO2 125 H
HCO3 26.5
O2 Delivery Level
Diagnostic Testing:
Physical Exam
-
Exam:
Well-nourished and well-developed in no apparent distress
HEENT-atraumatic, normocephalic, tracheostomy tube midline
Neck-supple, no JVD, no bruit
Heart-regular rate and rhythm-no murmurs, rubs or gallops
Chest with diminished breath sounds right greater than left, expiratory rhonchi and no crackles
Back-no tenderness
Abdomen-soft, nontender, nondistended, no hepatosplenomegaly
Extremities-no cyanosis, clubbing, edema and good peripheral pulses
Integument-intact, no rashes, lesions or ecchymosis
Neurology-alert and oriented, nonfocal motor and sensory exam
Assessment
-
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
family members came to the emergency room noted to have significant mucous plugging and hypoxemia-gaggerman consulted for emergent bronchoscopy and critical care management 08/02/2024.
Respiratory failure-acute hypoxemic secondary to mucous plugs
ABG 08/01/2024--40/125/7 0.43 and 08/02/2024--44/44/7 0.38
Mucous plugs with right lung atelectasis
Status post emergent bronchoscopy 08/02/2024-voluminous amounts of tenacious bloody thick secretions right greater than left
Laryngeal mass-squamous cell carcinoma
Undergoing chemotherapy and radiation therapy
Status post tracheostomy-currently uncuffed fenestrated trach
Status post emergent trach change to cuffed trach 08/02/2024
COPD without acute exacerbation
Anxiety
Leukocytosis
Diqdvg-whtvomupgw-uzvjtswfdg 10.5
Thrombocytosis
Mild hyperglycemia
Hypoalbuminemia
Limited DNR
Conditions present prior to admission:
Recent hospitalization 05/25 through 06/03/2024-presentation stridor, dysphagia and weight loss, laryngeal mass status post trach and biopsy-squamous cell carcinoma status post gastrostomy tube placement
COPD.
Pulmonary nodules-followed by Dr. Rooney
Former smoker.
Laryngeal cancer status post tracheostomy.
Hyperlipidemia.
Renal calculi. Laser lithotripsy and stent.
Distal radius fracture 11/2023. Tubal ligation.
Plan
Acute/subacute decompensation related to mucous plugging status post emergent bronchoscopy in the ED by Dr. Bazan at 3 AM
Transfer to medical intensive care unit for close observation
Supplemental oxygen
Tracheostomy tube changed to cuffed
Connected to the ventilator if needed-currently breathing much improved with tracheostomy tube change and bronchoscopy
Nebulizers
Saline and clearance of mucous plugs as needed
Mucolytic's
Aspiration precautions
Routine tracheostomy tube care
Observe off steroids
Check cultures
Consider antibiotics-secretions thick but not discolored
Observe off antibiotics
Monitor hemoglobin
Transfuse if needed
Monitor blood sugar
Insulin supplementation as needed
DVT prophylaxis-on Lovenox
Nutrition
Early mobilization
Lengthy discussion with the family including POA's-they would like discharge home with hospice, no longer chemotherapy and radiation therapy, and DNR status-we will confirm with patient and obtain hospice consult
Patient is followed with Dr. Rooney-last visit 05/25/2023 for COPD and 9 mm right upper lobe lung nodule, chronic bronchitis and ongoing smoking
Critical care statement: A total of 95 minutes of critical care time was provided for this patient today. This includes management of unstable vital signs, evaluation of the patient at bedside, reviewing the patient's pertinent medical records
including radiographs, management of respiratory failure, emergent bronchoscopy, microbiology, laboratory evaluations, and discussion with primary team, consultants, pharmacy, nutrition, physical therapy, case management, charge nurse, critical
care nursing, and respiratory therapy.
Diagnostic data:
Chest x-ray 11/20/2019-NAD
Chest x-ray 08/01/2024-NAD
Chest x-ray 08/02/2024-abrupt occlusion of right mainstem
CT chest 04/07/2021-small groundglass nodule right upper lobe measuring 9 mm and 2 additional small pulmonary nodules measuring up to [address] 06/29/22-8.3 mm groundglass nodule right upper lobe, 2.6 mm left upper lobe nodule
CT chest 04/06/2023-no interval change of 8 mm groundglass nodule and 3 mm left lower lobe nodule
CT chest 03/14/2024-unchanged 9 mm groundglass nodule right upper lobe, additional smaller nodules unchanged
CT chest abdomen and pelvis 05/27/2024-moderate pneumomediastinum, no evidence for metastatic disease in the chest abdomen or pelvis, cholelithiasis, stable 8 mm right upper lobe groundglass nodule
CT chest 08/01/2024-no pulm embolism, 7 mm right upper lobe pulmonary nodule
PFT 05/25/2023-Moderate COPD, mild restrictive lung defect, moderate gas exchange with DLCO 47%, DLCO/VA 64%
Data Reviewed
-
PFT: Report reviewed by me
EKG: Report reviewed by me
Radiology: Image personally visualized and interpreted and Report reviewed by me
CT Scan: Image personally visualized and interpreted and Report reviewed by me
Medical Tests (Nuc Med, Echo etc): Report reviewed by me
Labs: Labs reviewed by me
Old Records: Reviewed
Critical Care Time (in minutes): 95
Total Time Spent with Patient (in minutes): 95
--- NOTE | 2024-08-02 03:59 | W.PN.UPDATE ---
Update Note
Progress Note Update
Called emergently at 2:45 AM for emergent bronchoscopy
History and radiographs reviewed-marginal saturations while being bagged, respiratory therapy and ED staff reporting bloody secretions
Chest x-ray with atelectasis and probable mucous plug
Emergent bronchoscopy obtained-daughter present throughout procedure
Thick bloody mucus plugging in tracheostomy tube-removed with multiple times needed to remove bronchoscope and flush plugs that were clogging scope-over a dozen times
Tracheostomy tube tip within main trachea-julissa sharp, no endobronchial lesions
Thick mucus noted right middle lobe, right lower lobe and left tracheobronchial tree was clear
Multiple saline lavages instilled with subsequent bronchoalveolar lavages to clear additional mucous plugs and retained secretions
Patient tolerated procedure well-1 mg of morphine provided for comfort
When procedure was completed there was no obvious mucous plugs and patient was oxygenation much better
ED staff, respiratory therapy, ICU staff and family were updated on results
--- NOTE | 2024-08-02 04:00 | PTCARENOTE ---
Called to the ED for report of pt too unstable for transport to the ICU. Pt resides on RA with uncuffed trach collar at home, in the ED pt was requiring BVM ventilation. Manager Community called in, this RN, respiratory therapist, nursing supervisor wound and
covering Kota DICK, responded bedside in the ED. Manager Community, Dr. Sahu, performed bedside bronchoscopy removing multiple mucus plugs and thick chung/blood-tinged sputum. Pt received 1mg IV Morphine during procedure, see MAR. Pt's trach exchanged
for a 6.5 cuffed shiley, BVM ventilation provided with positive effect. Pt's SpO2 post-procedure 98% on trach collar, 10L/50%O2. Pt placed on portable monitor and transported to the ICU. Pt tolerated transport well.
--- NOTE | 2024-08-02 04:02 | DOWNTIME ---
There was a [employer] Rig Builder Helper Downtime on 07/05/2024 from 0100 to 07/05/2024 at 0300. Downtime documentation of patient's care, including medication administrations, has been reconciled in the electronic record per guidelines. Refer to the
patient's paper chart under the miscellaneous tab to see printed paper medication records and downtime forms.
[2024-08-02 04:49] LABS: B.E. 0.6 mmol/L; O2 Saturation % 79.7 % (94-98); PCO2 44 mmHg (32-35); pH 7.38 (7.35-7.45)
[2024-08-02 04:51] LABS: PO2 44 mmHg (83-108)
--- NOTE | 2024-08-02 05:15 | PTCARENOTE ---
Received pt as admission from the ED. Pt AAOx2 (time), drowsy but arouses to verbal stimuli. Pt with trach collar, nods head appropriately and mouths words to communicate, able to make needs known. Pt's family at the bedside (daughter x2 and
son-in-law) provide majority of pt's history and admission. Sinus rhythm on the monitor, SpO2 90-94% on trach collar 10L/50%O2 (humidified), lungs clear with expiratory wheeze. Pt occasionally desats to mid-80's, recovers quickly after deep suction.
Pt with thick chung/blood-tinged sputum. +bowel sounds. PEG tube present, pt's family states pt receives overnight tube feeds for 12 hours, plus 3 bolus feeds during the day. NPO status. Purewick in place draining yellow/curly colored urine. Remainder
of assessment as documented. G cloth bath provided. Pt and family oriented to unit and call holder. Pt resting comfortably in bed at this time.
[2024-08-02 05:54] LABS: Hematocrit 29.9 % (37.0-47.0); Hemoglobin 9.9 g/dL (12.0-16.0); Mean Corp Hgb Conc. 33.1 g/dL (33.0-37.0); Mean Corpuscular Hgb 30.8 pg (27.0-31.0); Mean Corpuscular Volume 93.1 fL (81.0-99.0); Mean Platelet Volume 9.1 fL (7.4-10.4); Platelet Count 345 10^3/uL (130-400); Red Blood Cell Count 3.21 10^6/uL (4.20-5.40); Red Cell Dist. Width 14.1 % (11.5-14.5); White Blood Cell Count 10.6 10^3/uL (4.8-10.8)
[2024-08-02 06:01] LABS: Blood Urea Nitrogen 22 mg/dl (7-17); Calcium 8.2 mg/dl (8.4-10.2); Carbon Dioxide 27 mmol/L (22-30); Chloride 103 mmol/L (98-107); Estimated Creatinine Clearance 51 ml/min; Glucose 97 mg/dl (70-99); Potassium 4.3 mmol/L (3.5-5.1); Sodium 138 mmol/L (135-145); eGFR > 60.00
--- NOTE | 2024-08-02 06:18 | PTCARENOTE ---
Pt's family expresses they wish pt to be a full DNR. Pt's son-in-law states pt receives chemo treatment every Wednesday and radiation 5x/week which they plan to call and withdrawal today. Pt's family states pt was suppose to have a visit from
palliative care team at home today to discuss their options. Pt's son-in-law states they wish to make pt a DNR and take her home on hospice, but does not wish to discuss this with pt. This RN, Kota DICK, and Dr. Bazan met and explained to family
POC is based off of pt's wishes as long as she is deemed capable of making decisions for herself, which she is at this point in time. Consult placed to case management for assistance with decisions on POC continuing forward for pt. Pt remains ICU
level of care.
--- NOTE | 2024-08-02 09:20 | CM ---
CM following re: discharge planning.
Reviewed pt's chart, met with pt and spoke to pt's daughter Michelle at bedside.
Pt is an 79 year old female, admitted with primary dx of Acute hypoxia. Trach in place with history of laryngeal cancer
Per daughter, pt lives alone in a rancher style house, 2 years ago, son 1.5 years ago. Pt has daughter Ginny who lives in [place] [phone] and daughter Michelle lives in [place] [phone]. Pt is known to [facility].
Hospice consult noted. Discussed it with daughter Michelle and she stated her sister is coming here shortly and she would like to discuss hospice care vs aggressive care with MD team. In meantime pt's daughter asked to refer the pt to hospice
for information regarding hospice care benefits.
A referral to hospice made.
PCP: Jona Mixon
Pharmacy: [facility].
D/C plan: uncertain at this time. patient account liaison will follow.
CM will follow with discharge plan updates as hospitalization progresses
--- NOTE | 2024-08-02 10:52 | HOSPNOTE ---
Addendum entered by Chanelle Hernandez RN 08/02/24 13:31:
Spoke with the daughter and the family would like me to speak with patient tomorrow and ask what her decision will be either continue with treatment or hospice. It depends on what the goal of the patient will be. More information will follow.
Original Note:
Reached out to daughters and will await a call back to discuss hospice services. More information to follow.
--- NOTE | 2024-08-02 11:02 | W.PN.HOSP.TC ---
Today's Communication/Plan
-
cont weaning off O2
Assessment / Plan
Assessment / Plan
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
overnight 08/02/24
A/P:
#L lower lobe bronchial mucus plug
#Squamous cell carcinoma of the laryngth
#Acute on chronic hypoxic respiratory failure 2/2 above
s/p bronchoscopy. mucus clear, lard bleacher had no concern for infection as a source
mucinex, O2 supplements and pulmonary toilet - mgmt as per pulm
Cont to follow as outpatient for cancer treatment as established before
bronchodilators
scopolamine PRN
#Dysphagia 2/2 above
s/p PEG - cont feeding when able
#Ascending aortic aneurism
4.2cm - q6m MRI recommended
#Anemia
most likely 2/2 CA and chemo
follow CBC
#Anxiety d/o
Ativan PRN
DVT ppx on lovenox
Limited DNR - no intubation, CPR allowed
I have spent at least 59min reviewing chart, test results, communication with consultants and direct patient care
Anticipated Discharge: 24 - 48 hours
Subjective/Interval History
-
Date of Service: August 02, 2024
Objective Data
-
Labs:
Laboratory Results
08/02/24 08/02/24
02:40 05:26
WBC 10.6
Hgb 9.9 L
Hct 29.9 L
Plt Count 345 D
HCO3 26.0
Sodium 138
Potassium 4.3
Chloride 103
Carbon Dioxide 27
BUN 22 H
Creatinine 0.4 L
Glucose 97
Calcium 8.2 L
Vital Signs:
Vital Signs
Temp Pulse Resp BP Pulse Ox
98.8 F 86 15 115/64 99
08/02/24 07:00 08/02/24 08:45 08/02/24 08:45 08/02/24 08:30 08/02/24 10:20
I&O
08/01/24 08/02/24 08/03/24
06:59 06:59 06:59
Intake Total 640 / 640
Output Total 300 / 300
Balance 340 / 340
Review of Systems
-
History Source: Patient
All other systems: Reviewed and negative
Physical Exam
-
General: No Apparent Distress
Respiratory: Crackles
Cardiac: Regular Rhythm
GI: Soft, Nontender and Peg Tube
Musculoskeletal: No Clubbing, No Cyanosis and No Edema
[2024-08-02 11:09] LABS: COVID-19 Antigen Negative (Negative)
[2024-08-02 11:28] LABS: Procalcitonin 0.06 ng/ml (0.0-0.25)
--- NOTE | 2024-08-02 12:00 | PTCARENOTE ---
Pt drowsy. Sinus arrhythmia. SpO2 93-99% on 35% trach collar. Scattered rhonchi noted. Weak, productive cough. Required trach suction x2 in 4 hrs. Sputum thick, blood tinged. NPO with meds via PEG. Good urine output via purewick. All other
assessments unchanged.
[2024-08-02] MEDS: TYLENOL ORAL SOLUTION 650 MG TUBE (15:09)
[2024-08-02] MEDS: ROBITUSSIN 200 MG TUBE ×3 (15:09→21:17)
[2024-08-02] MEDS: LOVENOX 40 MG SC (18:32)
--- NOTE | 2024-08-02 18:49 | PTCARENOTE ---
Pt alert and oriented. SpO2 98% on 35% TC. Requiring suctioning about every 2hrs. Temp 101.6. Tylenol given. Re check 99.9 MD notified. Procalcitonin, flu and covid tests negative. No new orders at this time. Tube feeds ordered. Will start
when pump arrives. Family at bedside All other assessments unchanged.
--- NOTE | 2024-08-02 20:30 | PTCARENOTE ---
rec'd patient. assessment as documented. pt oriented, denies pain. currently on trach collar 35%, frequent suctioning required for mucous plugs. IVF infusing. TF started through PEG tube. purewick in place. pt repositioned for comfort. call holder
within reach. care ongoing.
[2024-08-03] VITALS (24 sets, daily range): BP systolic 93–118; BP diastolic 50–70; BMI 18.4
--- NOTE | 2024-08-03 01:49 | PTCARENOTE ---
trach suctioning provided, pt repositioned, no changes in assessment noted
[2024-08-03 03:38] LABS: Hematocrit 27.8 % (37.0-47.0); Hemoglobin 9.6 g/dL (12.0-16.0); Mean Corp Hgb Conc. 34.5 g/dL (33.0-37.0); Mean Corpuscular Hgb 31.1 pg (27.0-31.0); Mean Platelet Volume 9.1 fL (7.4-10.4); Platelet Count 309 10^3/uL (130-400); Red Blood Cell Count 3.09 10^6/uL (4.20-5.40); Red Cell Dist. Width 13.8 % (11.5-14.5); White Blood Cell Count 6.8 10^3/uL (4.8-10.8)
--- NOTE | 2024-08-03 04:10 | PTCARENOTE ---
AM labs sent. purewick and brief replaced. pt has no complaints at this time. trach care and suctioning provided. call holder within reach, care ongoing.
[2024-08-03 04:13] LABS: ALT (SGPT) 19 U/L (0-35); AST (SGOT) 24 U/L (14-36); Albumin 2.5 g/dl (3.5-5.0); Alkaline Phosphatase 56 U/L (38-126); Blood Urea Nitrogen 21 mg/dl (7-17); Calcium 8.1 mg/dl (8.4-10.2); Carbon Dioxide 29 mmol/L (22-30); Chloride 96 mmol/L (98-107); Estimated Creatinine Clearance 51 ml/min; Glucose 157 mg/dl (70-99); Potassium 3.7 mmol/L (3.5-5.1); Sodium 131 mmol/L (135-145); Total Bilirubin 0.2 mg/dl (0.2-1.3); Total Protein 4.7 g/dl (6.3-8.2); eGFR > 60.00
--- NOTE | 2024-08-03 07:29 | W.PN.INTV ---
Today's Communication / Plan
Recommendations
Assess for discharge supplemental oxygen needs
Mucolytic's
Nebulizers if needed
Oncological evaluation noted-patient willing to continue with chemo and radiation with good performance status
Outpatient ENT evaluation
Stable from a pulmonary perspective for proposed discharge
Assessment
-
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
family members came to the emergency room noted to have significant mucous plugging and hypoxemia-raker buffing wheel consulted for emergent bronchoscopy and critical care management 08/02/2024.
Respiratory failure-acute hypoxemic secondary to mucous plugs
ABG 08/01/2024--40/125/7 0.43 and 08/02/2024--44/44/7 0.38
Mucous plugs with right lung atelectasis
Status post emergent bronchoscopy 08/02/2024-voluminous amounts of tenacious bloody thick secretions right greater than left
Laryngeal mass-squamous cell carcinoma
Undergoing chemotherapy and radiation therapy
Status post tracheostomy-currently uncuffed fenestrated trach
Status post emergent trach change to cuffed trach 08/02/2024
COPD without acute exacerbation
Anxiety
Leukocytosis
Txspvq-imcdkqfjwo-rnyhehzlgu 10.5
Thrombocytosis
Mild hyperglycemia
Hypoalbuminemia
Limited DNR
Conditions present prior to admission:
Recent hospitalization 05/25 through 06/03/2024-presentation stridor, dysphagia and weight loss, laryngeal mass status post trach and biopsy-squamous cell carcinoma status post gastrostomy tube placement
COPD.
Pulmonary nodules-followed by Dr. Rooney
Former smoker.
Laryngeal cancer status post tracheostomy.
Hyperlipidemia.
Renal calculi. Laser lithotripsy and stent.
Distal radius fracture 11/2023. Tubal ligation.
Plan
Respiratory status is improved significantly after bronchoscopy
Continue supplemental oxygen-assess discharge supplemental oxygen needs prior to discharge
Tracheostomy tube changed to cuffed-should follow-up with ENT as an outpatient for ideal long-term outpatient trach
Nebulizers as needed
Saline and clearance of mucous plugs as needed
Mucolytic's continue
Aspiration precautions per protocol
Routine tracheostomy tube care-FOOD INSPECTOR working with family
Observe off steroids
Chest x-ray much improved
Check cultures
Consider antibiotics-secretions thick but not discolored, no temperatures or leukocytosis or obvious infiltrate on chest x-ray
Procalcitonin negative
Observe off antibiotics
Monitor hemoglobin
Transfuse if needed
Monitor blood sugar
Insulin supplementation as needed
Oncological evaluation noted-performance status good and would benefit from ongoing chemo and radiation therapy without evidence for metastatic disease-patient now willing
DVT prophylaxis-on Lovenox
Nutrition
Increase activity/physical therapy
Again lengthy discussion with the patient as well as family as well as oncology-patient now understands her short and long-term prognosis from oncological perspective and wishes to pursue chemo/radiation therapy
She did not want to go on a ventilator, CPR or shocking
Patient stable for potential discharge home-reviewed with primary team as well as family
Patient is followed with Dr. Rooney-last visit 05/25/2023 for COPD and 9 mm right upper lobe lung nodule, chronic bronchitis and ongoing smoking
Recommend outpatient follow-up with Dr. Montalvo for trach change, etc.
Reviewed the patient's pertinent medical records including radiographs, management of respiratory failure, emergent bronchoscopy, microbiology, laboratory evaluations, and discussion with primary team, consultants, pharmacy, nutrition, physical
therapy, case management, charge nurse, critical care nursing, and respiratory therapy.
Diagnostic data:
Chest x-ray 11/20/2019-NAD
Chest x-ray 08/01/2024-NAD
Chest x-ray 08/02/2024-abrupt occlusion of right mainstem
CT chest 04/07/2021-small groundglass nodule right upper lobe measuring 9 mm and 2 additional small pulmonary nodules measuring up to [address] 06/29/22-8.3 mm groundglass nodule right upper lobe, 2.6 mm left upper lobe nodule
CT chest 04/06/2023-no interval change of 8 mm groundglass nodule and 3 mm left lower lobe nodule
CT chest 03/14/2024-unchanged 9 mm groundglass nodule right upper lobe, additional smaller nodules unchanged
CT chest abdomen and pelvis 05/27/2024-moderate pneumomediastinum, no evidence for metastatic disease in the chest abdomen or pelvis, cholelithiasis, stable 8 mm right upper lobe groundglass nodule
CT chest 08/01/2024-no pulm embolism, 7 mm right upper lobe pulmonary nodule
PFT 05/25/2023-Moderate COPD, mild restrictive lung defect, moderate gas exchange with DLCO 47%, DLCO/VA 64%
Subjective Dataa
Subjective Data
Date of Service:
Date of Service: August 03, 2024
Chief Complaint: Machine Cloth Examiner Follow Up and Pulmonary Follow Up
Subjective:
Alert, moderate amount secretions, not discolored, oxygenating well, anxious to go home, no chest pain or abdominal pain
Review of Systems
General: Other (Per HPI)
Objective Data
Data Reviewed
Vital Signs / I&O / Oxygen:
Vital Signs
Temp Pulse Resp BP Pulse Ox
98.4 F 74 17 113/59 98
08/03/24 03:49 08/03/24 06:00 08/03/24 06:00 08/03/24 06:00 08/03/24 06:00
Intake and Output
08/02/24 08/03/24 08/04/24
06:59 06:59 06:59
Intake Total 1500 / 1500
Output Total 1850 / 1850
Balance -350 / -350
SaO2 98
Physical Exam
General: Respiratory Distress (n) and Comfortable
HEENT: Normocephalic, Anicteric and Moist Mucous Membranes
Cardiovascular: Regular Rhythm
Respiratory: Clear (Good aeration bilaterally ), Crackles (Few basilar), Rhonchi (Few expiratory), Non-Labored Respirations, Accessory Resp Muscle Use (n) and Stridor (n)
GI: Soft, Non Distended and Non Tender
Neurology: Awake, Alert and No Motor Deficits
Skin: Warm, Good Color, Cyanosis (n), Jaundice (n) and Rash (n)
Labs/Micro/Reports
Lab Data
08/03/24 03:27
08/03/24 03:27
Microbiology
08/02/24 10:38 Tracheal Aspirate Gram Stain - Preliminary
08/02/24 10:38 Nasal Swab Influenza Types A & B (SIVA) - Final
Negative for Influenza A & B, NAAT
Negative results must be combined with clinical observations
and patient history.
Nucleic Acid Amplification test (NAAT)performed on the
[employer] platform.
[2024-08-03] MEDS: ROBITUSSIN 200 MG TUBE ×4 (08:54→22:13)
--- NOTE | 2024-08-03 09:42 | CON.ONC ---
Impression
Impression
Acute hypoxemia secondary to mucous plugging
Subglottic T3 N0 squamous cell carcinoma
Plan
Plan
Based on the current data reviewed the prognosis
Recommended aggressive management of secretions with suction
Encouraged to continue combined modality therapy for curative intent
After 40-minute family meeting and clarification of the roles of hospice patient is elected to continue therapy
Will reinstate combined modality therapy next week
Continue supportive care stepdown and discharge anticipated barring any additional complications in the next 1 to 2 days
Patient History
History of Present Illness
79-year-old female recently diagnosed with squamous cell carcinoma of the larynx undergoing definitive therapy with combination CDDP/XRT for T3N0M0 squamous cell carcinoma in the proximal hypopharynx that developed acute hypoxemia requiring emergent
bronchoscopy and critical care management. She had been attempting to manage her secretions at home and has suction available. Both daughters and son-in-law were present for family meeting today to review prognosis and further recommendations
Past-Medical/Surgical History
Past Medical History
Past Medical History: None (COPD. Former smoker. Laryngeal cancer status post tracheostomy. Hyperlipidemia. Renal calculi. Laser lithotripsy and stent. Distal radius fracture.)
Social History
Tobacco: Former Smoker (Three-quarter pack/day for 60 years-quit May 2022 and restarted quarter pack per day February 2023)
Alcohol: None
Drug: None
Living: With Family
Occupational Exposures: No known asbestos exposure
Environmental Exposures: No known tuberculosis exposure
Family History
Family History: Reviewed & Not Pertinent and Other (Brother-CAD. Mother-throat cancer. Son-kidney disease, CAD and skin cance
Patient Medication
�Medication �Instructions �Recorded �Confirmed �Last Taken �Type
acetaminophen 1 dose feeding tube Q6HPRN PRN 08/01/24 08/01/24 Unknown History
mild pain
guaifenesin 100 mg/5 mL oral liquid 200 mg feeding tube QID@08,12,16,20 08/01/24 08/01/24 Unknown History
ipratropium 0.5 mg-albuterol 3 mg 3 ml inhalation R Q6HPRN PRN SOB 08/01/24 08/01/24 Unknown History
(2.5 mg base)/3 mL nebulization
soln
lorazepam 2 mg/mL oral concentrate 0.5 mg feeding tube Q8HPRN PRN 08/01/24 08/01/24 08/01/24 14:30 History
anxiety
scopolamine base 1 mg over 3 days 1 patch transdermal Q3D PRN 08/01/24 08/01/24 08/01/24 Rx
transdermal patch excessive secretions #4 ea
Active Medications
Generic Name Dose Route Start Last Admin
Trade Name Freq PRN Reason Stop Dose Admin
Acetaminophen 650 mg 08/02/24 14:57 08/02/24 15:09
Acetaminophen (Oral Solution) 650 Mg/20.3 Ml Cup TUBE 08/30/24 14:56 650 mg
Q4HPRN PRN Administration
mild pain/JASMINE/temp> 100.4F
Albuterol/Ipratropium 3 ml 08/01/24 23:43
Ipratropium 0.5/Albuterol 3 Mg (3 Ml Ampul) INH
R Q4HPRN PRN
shortness of breath
Protocol
Enoxaparin Sodium 40 mg 08/02/24 18:00 08/02/24 18:32
Enoxaparin Sodium 40 Mg/0.4 Ml Syringe SC 08/30/24 17:59 40 mg
QPM IMANI Administration
Guaifenesin 200 mg 08/02/24 13:00 08/03/24 08:54
Guaifenesin Oral Solution (200 Mg/10 Ml) Cup TUBE 08/30/24 12:59 200 mg
QID IMANI Administration
Lorazepam 0.5 mg 08/01/24 23:52 08/02/24 00:23
Lorazepam 0.5 Mg Tablet TUBE 08/29/24 23:51 0.5 mg
Q8HPRN PRN Administration
anxiety
Scopolamine HBr 1 patch 08/01/24 23:43
Scopolamine Patch (1 Mg/3 Days) TRANSDERM 08/29/24 23:42
Q3D PRN
excessive secretions
Sodium Chloride 0 flush 08/01/24 22:00 08/01/24 21:31
Sodium Chloride 0.9% (Flush) Syringe IV 08/29/24 21:59 1 flush
PER PROTOCOL IMANI Administration
Review of Systems
-
12 point review of systems fails elicit additional complaints other than those reviewed in the HPI
Physical Exam
-
Well-nourished and well-developed in no apparent distress
HEENT-atraumatic, normocephalic, tracheostomy tube midline
Heart-regular rate and rhythm-no murmurs, rubs or gallops
Chest with diminished breath sounds right greater than left, expiratory rhonchi and no crackles
Abdomen-soft, no hepatosplenomegaly
Extremities-no cyanosis, clubbing, edema and good peripheral pulses
Integument-intact, no rashes, lesions or ecchymosis
Neurology-alert and oriented, nonfocal motor examination
Labs
Lab Results
WBC 6.8 10^3/uL (4.8-10.8) 08/03/24 03:27
RBC 3.09 10^6/uL (4.20-5.40) L 08/03/24 03:27
Hgb 9.6 g/dL (12.0-16.0) L 08/03/24 03:27
Hct 27.8 % (37.0-47.0) L 08/03/24 03:27
MCV 90.0 fL (81.0-99.0) 08/03/24 03:27
MCH 31.1 pg (27.0-31.0) H 08/03/24 03:27
MCHC 34.5 g/dL (33.0-37.0) 08/03/24 03:27
RDW 13.8 % (11.5-14.5) 08/03/24 03:27
Plt Count 309 10^3/uL (130-400) 08/03/24 03:27
MPV 9.1 fL (7.4-10.4) 08/03/24 03:27
Abs Immat Gran (auto) Cancelled 08/03/24 06:00
Absolute Neuts (auto) Cancelled 08/03/24 06:00
Absolute Lymphs (auto) Cancelled 08/03/24 06:00
Absolute Monos (auto) Cancelled 08/03/24 06:00
Absolute Eos (auto) Cancelled 08/03/24 06:00
Absolute Basos (auto) Cancelled 08/03/24 06:00
Immature Gran % Cancelled 08/03/24 06:00
Neutrophils % Cancelled 08/03/24 06:00
Lymphocytes % Cancelled 08/03/24 06:00
Monocytes % Cancelled 08/03/24 06:00
Eosinophils % Cancelled 08/03/24 06:00
Basophils % Cancelled 08/03/24 06:00
Creatinine 0.4 mg/dL (0.6-1.0) L 08/03/24 03:27
Vital Signs
Vital Signs
Temp Pulse Resp BP Pulse Ox
98.9 F 72 18 111/64 99
08/03/24 08:14 08/03/24 07:00 08/03/24 07:00 08/03/24 07:00 08/03/24 07:59
--- NOTE | 2024-08-03 12:50 | W.PN.HOSP.TC ---
Addendum entered and electronically signed by Jamey Palencia MD 08/03/24 13:46:
#Mild hyponatremia
Repeat BMP
Original Note:
Today's Communication/Plan
-
Home O2
ID consult
Assessment / Plan
Assessment / Plan
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
overnight 08/02/24
A/P:
#L lower lobe bronchial mucus plug
#Squamous cell carcinoma of the laryngth
#Acute on chronic hypoxic respiratory failure 2/2 above
s/p bronchoscopy. mucus clear, bed setter had no concern for infection as a source, however Cx grew many presumptive S.auresus - will discuss with ID before d/c
Home O2 - CM working on it
mucinex, O2 supplements and pulmonary toilet - mgmt as per pulm
Cont to follow as outpatient for cancer treatment as established before
bronchodilators
scopolamine PRN
#Dysphagia 2/2 above
s/p PEG - cont feeding when able
#Ascending aortic aneurism
4.2cm - q6m MRI recommended
#Anemia
most likely 2/2 CA and chemo
follow CBC
#Anxiety d/o
Ativan PRN
DVT ppx on lovenox
Limited DNR - no intubation, CPR allowed
I have spent at least 59min reviewing chart, test results, communication with consultants and direct patient care
Anticipated Discharge: Within 24 hours
Subjective/Interval History
-
Date of Service: August 03, 2024
Objective Data
-
Labs:
Laboratory Results
08/03/24
03:27
WBC 6.8
Hgb 9.6 L
Hct 27.8 L
Plt Count 309
Sodium 131 L
Potassium 3.7
Chloride 96 L
Carbon Dioxide 29
BUN 21 H
Creatinine 0.4 L
Glucose 157 H
Calcium 8.1 L
Total Bilirubin 0.2
AST 24
ALT 19
Alkaline Phosphatase 56
Vital Signs:
Vital Signs
Temp Pulse Resp BP Pulse Ox
98.6 F 72 18 111/64 88
08/03/24 11:52 08/03/24 07:00 08/03/24 07:00 08/03/24 07:00 08/03/24 11:03
I&O
08/02/24 08/03/24 08/04/24
06:59 06:59 06:59
Intake Total 1500 / 2185 750 / 750
Output Total 1850 / 1850 250 / 250
Balance -350 / 335 500 / 500
Review of Systems
-
History Source: Family
All other systems: Reviewed and negative
Physical Exam
-
General: No Apparent Distress
HEENT: Normocephalic and Atraumatic
Respiratory: Crackles
Cardiac: Regular Rhythm
GI: Soft, Nontender and Nondistended
Musculoskeletal: No Clubbing, No Cyanosis and No Edema
Neuro: Awake, Alert, Oriented and AO x 3
Psych: Calm
--- NOTE | 2024-08-03 13:21 | PTCARENOTE ---
Pt OOB in chair. Encouraging pt to attempt to cough up secretions d/t pt asking to be suctioned every 30min- 1hr this am. Secretions becoming more bloody. Attempted pt on room air. SpO2 decreased to 88-90%. SpO2 95% on 35% TC at this time. All
other assessments unchanged. Working with case management, [employer] and homecare on discharge.
--- NOTE | 2024-08-03 13:41 | W.PN.HOSP.TC ---
Today's Communication/Plan
-
Home O2
ID consult
pending final Cx
Assessment / Plan
Assessment / Plan
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
overnight 08/02/24
A/P:
#L lower lobe bronchial mucus plug
#Squamous cell carcinoma of the laryngth
#Acute on chronic hypoxic respiratory failure 2/2 above
s/p bronchoscopy. mucus clear, bite block maker had no concern for infection as a source, however Cx grew many presumptive S.auresus - will discuss with ID before d/c
Home O2 - CM working on it
mucinex, O2 supplements and pulmonary toilet - mgmt as per pulm
Cont to follow as outpatient for cancer treatment as established before
bronchodilators
Sputum Cx grew S.Aureus, but with negative procalcitonin - questionable if just colonization - ID consult
#Dysphagia 2/2 above
s/p PEG - cont feeding when able
#Ascending aortic aneurism
4.2cm - q6m MRI recommended
#Anemia
most likely 2/2 CA and chemo
follow CBC
#Anxiety d/o
Ativan PRN
DVT ppx on lovenox
Limited DNR - no intubation, CPR allowed
I have spent at least 59min reviewing chart, test results, communication with consultants and direct patient care
Anticipated Discharge: Within 24 hours
Subjective/Interval History
-
Date of Service: August 03, 2024
Objective Data
-
Labs:
Laboratory Results
08/03/24
03:27
WBC 6.8
Hgb 9.6 L
Hct 27.8 L
Plt Count 309
Sodium 131 L
Potassium 3.7
Chloride 96 L
Carbon Dioxide 29
BUN 21 H
Creatinine 0.4 L
Glucose 157 H
Calcium 8.1 L
Total Bilirubin 0.2
AST 24
ALT 19
Alkaline Phosphatase 56
Vital Signs:
Vital Signs
Temp Pulse Resp BP Pulse Ox
98.6 F 83 22 112/68 94
08/03/24 11:52 08/03/24 13:00 08/03/24 13:00 08/03/24 13:00 08/03/24 13:00
I&O
08/02/24 08/03/24 08/04/24
06:59 06:59 06:59
Intake Total 1500 / 2185 1010 / 1010
Output Total 1850 / 1850 600 / 600
Balance -350 / 335 410 / 410
Review of Systems
-
History Source: Patient and Family
Respiratory: Reports Other (excessive mucus)
Physical Exam
-
General: No Apparent Distress
HEENT: Normocephalic and Tracheostomy Collar
Respiratory: Crackles
Cardiac: Regular Rhythm
GI: Soft
Skin: Warm
Neuro: Awake, Alert, Oriented and AO x 3
Psych: Calm
--- NOTE | 2024-08-03 13:49 | HOSPNOTE ---
At this time the patient would like to continue with treatment. Patient will be discharged to home with [facility] upon discharge. The family has my contact information when needed. I will sign off. If hospice is warranted prior to discharge please reach
out. CM, Attending and floor RN.
--- NOTE | 2024-08-03 13:59 | CM ---
CM following re: discharge planning.
Discussed in rounds, reviewed pt's chart, met with pt and pt's family at bedside.
Per pt and her family, after talking with oncologist, both pt and her family decided to stay with aggressive care and continue chemotherapy treatment.
Per RT pt will need home oxygen via trach. Pt is known to [facility]. A referral to [facility] made.
Per daughter Michelle pt has all necessary equipment and trach supplies from [facility] and pt will need home O2 arranged.
[facility] liaison is working to arrange home O2 with [facility] and any new trach supplies pt needs due to pt has new trach.
D/C plan: home with [facility], home Oxygen and necessary trach supplies. family to transport at discharge.
CM will follow to assist pt with a safe discharge home.
--- NOTE | 2024-08-03 14:27 | CON.ID ---
Consultation
-
Date/Time Consultation Requested: 08/03/24 12:54
Date/Time Consultation Performed: 08/03/24 14:28
Requesting Provider: Dr Palencia
Performing Provider: Dr Davenport
Reason for Consultation: bronchial cultures, eval for need in Abx
Chief Complaint / Past History
Chief Complaint
syncope
History of Present Illness
Ms Worthy is an 79 year old female with SCC of the larynx on chemoradiation, dysphagia s/p PEG who presented here 08/01 for shortness of breath and cyanosis - which had been occuring intermittently for the last 24 hours. Radiation was preformed on
the day of admission. She was seen in the ER twice on the same day - suctioning was preformed, she was recannulated, she improved and was discharged. She was coughing and had pleuritic chest pain. Then later that evening she again became short of
breath and passed out; 911 was called and she was transported to the hospital. Of note she has had intermittent constipation then diarrhea while on cathartics and was on imodium on arrival. No fevers or chills.
Since arrival here she has been febrile to 101.6 orally, bp stable, wbc initially 11.7 now 6.8, hgb 9.6, plt initially 444 now 309, L shift was noted on arrival, cr 0.4, t bili 0.2 ast 24, alt 19, alk phos 56, covid ag neg, CXR 08/01 atlectasis,
small pleural effusion, 08/01 CT chest: no PE, single pulm nodule, secretions in the trachea, atelectasis. Patient admitted to hospital. Then evening of 08/02 patient with resp distress, marginal saturations while being bagged, 08/02 CXT: Abrupt
cut off of the right lower lobe bronchus with associated increased right basilar opacity, likely mucous plugging and right basilar atelectasis. emergent bronchoscopy done - thick bloody mucus plugging in the tracheostomy, multiple plugs removed,
thick mucus in the RML, RLL, oxygenation improved, resp culture with presumptive S aureus
Past History
Additional Past Medical History:
Hyperlipidemia
Kidney stones
COPD
Pneumonia
Tubularization
laryngeal ca
Additional Past Surgical History:
Right uteroscopy with laser litho and stent
Right distal radius ORIF
Allergy History:
No Known Allergies Allergy (Verified 07/06/24 05:08)
Medications Reviewed: Yes
Social History
Tobacco: Former Smoker
Alcohol: None
Drug: None
Family History
Family History: Not Pertinent
Review of Systems
Review of Systems
General: Fever and Chills
All systems: All other systems were reviewed and were negative
Vital Signs
Temp Pulse Resp BP Pulse Ox
98.6 F 83 22 112/68 94
08/03/24 11:52 08/03/24 13:00 08/03/24 13:00 08/03/24 13:00 08/03/24 13:00
Physical Exam
Physical Exam
Constitutional: No Acute Distress, Chronically Ill and Cachetic
Cardiovascular: Regular Rate and S1/S2; Negative Murmur or Rub
Pulmonary: Clear and Symmetric; Negative Wheezes, Rales or Rhonchi
Gastrointestinal: Soft, Non Tender, Non Distended and Normal Bowel Sounds
Skin: Warm and Dry; Negative Rash or Jaundice
Psychological: Calm
Lab / Diagnostic Study Results
08/03/24 03:27
08/03/24 03:27
Abs Immat Gran (auto) Cancelled 08/03/24 06:00
Absolute Neuts (auto) Cancelled 08/03/24 06:00
Absolute Lymphs (auto) Cancelled 08/03/24 06:00
Absolute Monos (auto) Cancelled 08/03/24 06:00
Absolute Basos (auto) Cancelled 08/03/24 06:00
Immature Gran % Cancelled 08/03/24 06:00
Neutrophils % Cancelled 08/03/24 06:00
Lymphocytes % Cancelled 08/03/24 06:00
Monocytes % Cancelled 08/03/24 06:00
Eosinophils % Cancelled 08/03/24 06:00
Basophils % Cancelled 08/03/24 06:00
Procalcitonin 0.06 ng/ml (0.0-0.25) 08/02/24 10:44
Microbiology Results
Micro:
08/02/24 10:38 Respiratory Culture - Preliminary
Tracheal Aspirate Staphylococcus aureus
Gram Stain - Preliminary
08/02/24 10:38 Influenza Types A & B (SIVA) - Final
Nasal Swab Negative for Influenza A & B, NAAT
Negative results must be combined with clinical observations
and patient history.
Nucleic Acid Amplification test (NAAT)performed on the
[employer] platform.
Assessment / Plan
MRSA Pneumonia
Larygneal Cancer on chemotherapy/radiation
Cachexia
Dysphagia s/p PEG tube placement
- bronch culture with many presumptive s aureus
- start empiric vancomycin for now, plan to switch to orals to complete a 7 day course of when susceptibilities available - hopefully tomorrow
- follow up with oncology
--- NOTE | 2024-08-03 14:49 | VNURNOTE ---
[facility] liaison spoke with patient's daughter Michelle. She is familiar with [facility] services and would like [facility] nursing again when DC'ed. Home 02 info faxed to [facility]. Waiting on final determination for trach DME. Daughter would like patient to
be switched back to original trach (which she has home DME already): Terrell #4 uncuffed. ENT eval pending, Pulm aware. Daughter confirms she is independent with tube feed at home via. PEG. Referral placed in [facility].
--- NOTE | 2024-08-03 15:10 | PHA.VAN.IN ---
Assessment
- Assessment
Renal Function: Appears similar to baseline
AUC Dosing Plan
- Dosing Variables
Dosing Weight (kg): 48 (IBW)
Dosing CrCl (ml/min): 51
Vd coefficient (L/kg): 0.7
Utilized IBW for dosing weight given BMI < 20
- Empiric Dosing
Initial / Loading Dose: 1000mg - administration pending
Maintenance Regimen: Vanc 750mg Q24H starting 08/04 06
Estimated AUC (mcg*h/mL): 489
Estimated Peak (mcg*h/mL): 33
Estimated Trough (mcg/ml): 11.3
Estimated Half Life (H): 14.8
- Monitoring
No levels ordered at this time: consider levels in next few days
Pharmacokinetics Vancomycin I
- -
Patient Age: 79
Patient Sex: Female
Vancomycin Day #: 1
Indication: Pulmonary/Respiratory
Requesting Provider: Dr. Davenport
Pertinent Antimicrobial Allergies:
NKDA
Height / Weight:
Height 5 ft 1 in
Actual Weight 44.2 kg
IBW in k.8
Pertinent Past Medical History: BMI ~18
- Vital Signs / Lab Results
Temp Pulse Resp BP Pulse Ox
98.6 F 83 22 112/68 94
08/03/24 11:52 08/03/24 13:00 08/03/24 13:00 08/03/24 13:00 08/03/24 13:00
Lab Results - Hematology
08/01/24 08/02/24 08/03/24
16:44 05:26 03:27
WBC 11.7 H 10.6 6.8
Lab Results - Chemistry
08/01/24 08/02/24 08/03/24
16:44 05:26 03:27
BUN 27 H 22 H 21 H
Creatinine 0.4 L 0.4 L 0.4 L
Estimated Creat Clear 51 51
Albumin 3.4 L 2.5 L
Microbiology Results
08/02/24 10:38 Respiratory Culture - Preliminary
Tracheal Aspirate Staphylococcus aureus
Gram Stain - Preliminary
08/02/24 10:38 Influenza Types A & B (SIVA) - Final
Nasal Swab Negative for Influenza A & B, NAAT
Negative results must be combined with clinical observations
and patient history.
Nucleic Acid Amplification test (NAAT)performed on the
[employer] platform.
--- NOTE | 2024-08-03 15:31 | W.PN.UPDATE ---
Update Note
Progress Note Update
Patient was initially ready for discharge-sputum culture growing staph
Agree with treating-? Doxycycline or Bactrim
Infectious disease consulted
ENT consulted for trach change-personally notified
Home trach care teaching ongoing
Updated daughter from [place] who is now appear taken care of mother multiple times throughout the day
Likely will not leave today--can be transferred out of ICU-pulmonary will follow-up as an outpatient
[2024-08-03] MEDS: TYLENOL ORAL SOLUTION 650 MG TUBE (16:09)
[2024-08-03] MEDS: VANCOCIN 200 IV (16:09)
[2024-08-03] MEDS: ATIVAN 0.5 MG TUBE (16:09)
--- NOTE | 2024-08-03 16:15 | CON.MD ---
Consultation - Medical
-
Pt seen and consult dictated.
New cuffless Shiley trach inserted without difficulty.
will sign off for now, please call with any questions
[2024-08-03] MEDS: LOVENOX 40 MG SC (18:01)
--- NOTE | 2024-08-03 19:30 | PTCARENOTE ---
received report from RN, pt AAOx3, nonverbal but mouths words and nods head appropriately, irregular rhythm on monitor, +radials and pedals, 5L 28% trach collar, 6.5 shiley extra trachs @ bedside, coarse rhonchi and expiratory wheeze anteriorly,
SAT's 97%, BSx4 PEG 3cm TF @ goal Jevity 40/25, PW yellow output, blanchable red bottom sacral foam in place, 20G RAC, pt able to make needs known, encouraged to deep breathe and cough secretions up vs suctioning, call holder within reach other bruce
frer to documentation.
[2024-08-04] VITALS (25 sets, daily range): BP systolic 102–130; BP diastolic 53–85; O2SAT 87–96; BMI 17.6
[2024-08-04 04:48] LABS: % Basophils 0.1 % (0-2); % Eosinophils 1.4 % (0-6); % Immature Granulocytes 0.4 % (0-0.5); % Lymphocytes 5.1 % (20.5-51.1); % Monocytes 4.7 % (1.7-9.3); % Neutrophils 88.3 % (42.2-75.2); Absolute Eosinophils 0.1 10^3/uL (0-0.7); Absolute Lymphocytes 0.4 10^3/uL (1.2-3.4); Absolute Monocytes 0.3 10^3/uL (0.1-0.6); Absolute Neutrophils 6.4 10^3/uL (1.4-6.5); Hematocrit 32.1 % (37.0-47.0); Hemoglobin 11.2 g/dL (12.0-16.0); Mean Corp Hgb Conc. 34.9 g/dL (33.0-37.0); Mean Corpuscular Hgb 31.1 pg (27.0-31.0); Mean Corpuscular Volume 89.2 fL (81.0-99.0); Mean Platelet Volume 9.2 fL (7.4-10.4); Nucleated Red Blood Cells % 0 %; Platelet Count 342 10^3/uL (130-400); Red Cell Dist. Width 13.3 % (11.5-14.5); White Blood Cell Count 7.3 10^3/uL (4.8-10.8)
[2024-08-04 05:09] LABS: Blood Urea Nitrogen 15 mg/dl (7-17); Calcium 8.4 mg/dl (8.4-10.2); Carbon Dioxide 32 mmol/L (22-30); Chloride 92 mmol/L (98-107); Estimated Creatinine Clearance 52 ml/min; Glucose 161 mg/dl (70-99); Potassium 3.7 mmol/L (3.5-5.1); Sodium 132 mmol/L (135-145); eGFR > 60.00
[2024-08-04] MEDS: VANCOCIN 150 IV (05:38)
--- NOTE | 2024-08-04 07:58 | W.PN.INTV ---
Today's Communication / Plan
Recommendations
Respiratory status stable
ENT changed to trach
Antibiotics per infectious disease
Outpatient pulmonary follow-up
Stable from a pulmonary perspective for proposed discharge
Assessment
-
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
family members came to the emergency room noted to have significant mucous plugging and hypoxemia-wallboard worker consulted for emergent bronchoscopy and critical care management 08/02/2024.
Respiratory failure-acute hypoxemic secondary to mucous plugs
ABG 08/01/2024--40/125/7 0.43 and 08/02/2024--44/44/7 0.38
Mucous plugs with right lung atelectasis
Status post emergent bronchoscopy 08/02/2024-voluminous amounts of tenacious bloody thick secretions right greater than left
Laryngeal mass-squamous cell carcinoma
Undergoing chemotherapy and radiation therapy
Status post tracheostomy-currently uncuffed fenestrated trach
Status post emergent trach change to cuffed trach 08/02/2024
Status post new cuffless Shiley trach insertion by ENT 08/03/2024
COPD without acute exacerbation
Anxiety
Leukocytosis
Ebrpsv-fvlqcvgsce-piaipxzqzg 10.5
Thrombocytosis
Mild hyperglycemia
Hypoalbuminemia
Limited DNR
Conditions present prior to admission:
Recent hospitalization 05/25 through 06/03/2024-presentation stridor, dysphagia and weight loss, laryngeal mass status post trach and biopsy-squamous cell carcinoma status post gastrostomy tube placement
COPD.
Pulmonary nodules-followed by Dr. Rooney
Former smoker.
Laryngeal cancer status post tracheostomy.
Hyperlipidemia.
Renal calculi. Laser lithotripsy and stent.
Distal radius fracture 11/2023. Tubal ligation.
Plan
Respiratory status is improved significantly after bronchoscopy
Continue supplemental oxygen-assess discharge supplemental oxygen needs prior to discharge
Tracheostomy tube changed to cuffed-should follow-up with ENT as an outpatient for ideal long-term outpatient trach
Nebulizers as needed
Saline and clearance of mucous plugs as needed
Mucolytic's continue
Aspiration precautions per protocol
Routine tracheostomy tube care-GL[employer]ER working with family
Observe off steroids
Chest x-ray much improved
Cultures reviewed
Sputum culture-MSSA and Acetobacter-sensitivities reviewed
Treat bronchitis-received 1 dose of vancomycin
Consider Bactrim if no sulfa allergy
Infectious disease consultation obtained
Antibiotics per infectious disease
Procalcitonin negative
Monitor hemoglobin
Transfuse if needed
Monitor blood sugar
Insulin supplementation as needed
Oncological evaluation noted-performance status good and would benefit from ongoing chemo and radiation therapy without evidence for metastatic disease-patient now willing
DVT prophylaxis-on Lovenox
Nutrition
Increase activity/physical therapy
Again lengthy discussion with the patient as well as family as well as oncology-patient now understands her short and long-term prognosis from oncological perspective and wishes to pursue chemo/radiation therapy
She did not want to go on a ventilator, CPR or shocking
Patient stable for potential discharge home-reviewed with primary team as well as family
Patient is followed with Dr. Rooney-last visit 05/25/2023 for COPD and 9 mm right upper lobe lung nodule, chronic bronchitis and ongoing smoking
Recommend outpatient follow-up with Dr. Montalvo for trach change, etc.
Reviewed the patient's pertinent medical records including radiographs, management of respiratory failure, emergent bronchoscopy, microbiology, laboratory evaluations, and discussion with primary team, consultants, pharmacy, nutrition, physical
therapy, case management, charge nurse, critical care nursing, and respiratory therapy.
Diagnostic data:
Chest x-ray 11/20/2019-NAD
Chest x-ray 08/01/2024-NAD
Chest x-ray 08/02/2024-abrupt occlusion of right mainstem
CT chest 04/07/2021-small groundglass nodule right upper lobe measuring 9 mm and 2 additional small pulmonary nodules measuring up to [address] chest 06/29/22-8.3 mm groundglass nodule right upper lobe, 2.6 mm left upper lobe nodule
CT chest 04/06/2023-no interval change of 8 mm groundglass nodule and 3 mm left lower lobe nodule
CT chest 03/14/2024-unchanged 9 mm groundglass nodule right upper lobe, additional smaller nodules unchanged
CT chest abdomen and pelvis 05/27/2024-moderate pneumomediastinum, no evidence for metastatic disease in the chest abdomen or pelvis, cholelithiasis, stable 8 mm right upper lobe groundglass nodule
CT chest 08/01/2024-no pulm embolism, 7 mm right upper lobe pulmonary nodule
PFT 05/25/2023-Moderate COPD, mild restrictive lung defect, moderate gas exchange with DLCO 47%, DLCO/VA 64%
Subjective Dataa
Subjective Data
Date of Service:
Date of Service: August 04, 2024
Chief Complaint: Physical Therapy Nurse Follow Up and Pulmonary Follow Up
Subjective:
Feels better, less secretions, no complaints of shortness of breath, chest pain or abdominal pain
Review of Systems
General: Other (Per HPI)
Objective Data
Data Reviewed
Vital Signs / I&O / Oxygen:
Vital Signs
Temp Pulse Resp BP Pulse Ox
98.5 F 79 17 123/62 95
08/04/24 03:18 08/04/24 05:00 08/04/24 05:00 08/04/24 05:00 08/04/24 05:00
Intake and Output
08/03/24 08/04/24 08/05/24
06:59 06:59 06:59
Intake Total 1500 / 2185 1420 / 1420
Output Total 1850 / 1850 2600 / 2600
Balance -350 / 335 -1180 / -1180
SaO2 95
Physical Exam
General: Respiratory Distress (n) and Comfortable
HEENT: Normocephalic, Anicteric and Moist Mucous Membranes
Cardiovascular: Regular Rhythm
Respiratory: Clear (Good aeration bilaterally ), Crackles (Few basilar), Rhonchi (Few expiratory), Non-Labored Respirations, Accessory Resp Muscle Use (n) and Stridor (n)
GI: Soft, Non Distended and Non Tender
Neurology: Awake, Alert and No Motor Deficits
Skin: Warm, Good Color, Cyanosis (n), Jaundice (n) and Rash (n)
Labs/Micro/Reports
Lab Data
08/04/24 04:15
08/04/24 04:15
Microbiology
08/02/24 10:38 Tracheal Aspirate Respiratory Culture - Preliminary
Staphylococcus aureus
08/02/24 10:38 Tracheal Aspirate Gram Stain - Preliminary
08/02/24 10:38 Nasal Swab Influenza Types A & B (SIVA) - Final
Negative for Influenza A & B, NAAT
Negative results must be combined with clinical observations
and patient history.
Nucleic Acid Amplification test (NAAT)performed on the
[employer] platform.
--- NOTE | 2024-08-04 08:31 | PHA.VAN.FU ---
Vancomycin Assessment / Plan
- Assessment
Renal Function: Stable
WBC's are: WNL
In the past 24 hrs, patient has been: Afebrile
Concomitant Antimicrobials: none
- Dosing Plan
Continue: vancomycin 750 mg iv q24h - first dose 08/04 600
- Monitoring Plan
No level(s) ordered at this time: consider levels when pt nears steady
- Follow Up
Pharmacy will continue to follow.
Vancomycin Follow UP
- -
Patient Age: 79
Patient Sex: Female
Vancomycin Day #: 2
Indication: Pulmonary/Respiratory
Requesting Provider: Dr. Davenport
Pertinent Antimicrobial Allergies:
NKDA
Height / Weight:
Height 5 ft 1 in
Actual Weight 42.2 kg
IBW in k.8
Pertinent Past Medical History: BMI ~18
- Vital Signs / Lab Results
Temp Pulse Resp BP Pulse Ox
98.2 F 79 17 123/62 95
08/04/24 08:30 08/04/24 05:00 08/04/24 05:00 08/04/24 05:00 08/04/24 05:00
Lab Results - Hematology
08/01/24 08/02/24 08/03/24
16:44 05:26 03:27
WBC 11.7 H 10.6 6.8
08/04/24
04:15
WBC 7.3
Lab Results - Chemistry
08/01/24 08/02/24 08/03/24
16:44 05:26 03:27
BUN 27 H 22 H 21 H
Creatinine 0.4 L 0.4 L 0.4 L
Estimated Creat Clear 51 51
Albumin 3.4 L 2.5 L
08/04/24
04:15
BUN 15
Creatinine 0.4 L
Estimated Creat Clear 52
Albumin
Microbiology Results
08/02/24 10:38 Respiratory Culture - Preliminary
Tracheal Aspirate Staphylococcus aureus
Gram Stain - Preliminary
08/02/24 10:38 Influenza Types A & B (SIVA) - Final
Nasal Swab Negative for Influenza A & B, NAAT
Negative results must be combined with clinical observations
and patient history.
Nucleic Acid Amplification test (NAAT)performed on the
[employer] platform.
[2024-08-04] MEDS: ROBITUSSIN 200 MG TUBE ×3 (08:49→17:13)
[2024-08-04] MEDS: ATIVAN 0.5 MG TUBE (08:49)
--- NOTE | 2024-08-04 08:50 | VNURNOTE ---
Per record, ENT switched pt back to cuffless trach. This author called [facility]. Spoke to Vandana. Confirmed pt's existing DME rx is current. Confirmed new rx for 02 received. Per [facility] portable 02 can be delivered to hospital room today and
concentrator can be delivered to home. They have patient's contact #s. Provided Vandana with patient's hospital room, informed of tentative DC today.
--- NOTE | 2024-08-04 09:18 | W.PN.ID1 ---
Date of Service
Date of Service: August 04, 2024
Today's Communication
- c/w empiric vancomycin for now, plan to switch to orals to complete a 7 day course of when susceptibilities available
- will chart check later this afternoon
Assessment / Plan
MRSA Pneumonia
Larygneal Cancer on chemotherapy/radiation
Cachexia
Dysphagia s/p PEG tube placement
- bronch culture with many presumptive s aureus, also note few acinetobacter
- switched to minocycline to complete a 7-10 day course
- follow up with oncology
Chief Complaint
-: Pneumonia
Subjective / Review of Systems
frequent suctioning required - bloody
trache exchanged
Vital Signs / Physical Exam
Vital Signs
Vital Signs
Temp Pulse Resp BP Pulse Ox
98.2 F 79 17 123/62 95
08/04/24 08:30 08/04/24 05:00 08/04/24 05:00 08/04/24 05:00 08/04/24 05:00
Physical Exam
Constitutional: No Acute Distress and Chronically Ill
Cardiovascular: Regular Rate and S1/S2; Negative Murmur or Rub
Pulmonary: Clear and Symmetric; Negative Wheezes or Rales
Gastrointestinal: Soft, Non Tender, Non Distended and Normal Bowel Sounds
Skin: Warm and Dry; Negative Rash or Jaundice
Objective Data
Lab Data
Lab Results
08/04/24 04:15
08/04/24 04:15
Estimated Creat Clear 52 ml/min 08/04/24 04:15
Total Bilirubin 0.2 mg/dl (0.2-1.3) 08/03/24 03:27
AST 24 U/L (14-36) 08/03/24 03:27
ALT 19 U/L (0-35) 08/03/24 03:27
Alkaline Phosphatase 56 U/L (38-126) 08/03/24 03:27
Most recent labs reviewed.
Micro Results:
08/02/24 10:38 Respiratory Culture - Preliminary
Tracheal Aspirate Staphylococcus aureus
Gram Stain - Preliminary
08/02/24 10:38 Influenza Types A & B (SIVA) - Final
Nasal Swab Negative for Influenza A & B, NAAT
Negative results must be combined with clinical observations
and patient history.
Nucleic Acid Amplification test (NAAT)performed on the
[employer] platform.
Care Review
Plan reviewed with: Physician (Dr Palencia - valdemar)
--- NOTE | 2024-08-04 09:43 | VNURNOTE ---
Addendum to previous note 08/04/24-
Received call back from Marissa at [employer]- they need additional documentation on 02 assessments before 02 approval. Requested home 02 assessment from Hospitalist.
[2024-08-04] MEDS: MINOCIN 100 MG TUBE ×2 (11:22→19:48)
--- NOTE | 2024-08-04 12:06 | PTCARENOTE ---
Rec'd pt this AM. Anxious requesting ativan. see MAR. blood tinged sputum. daughter at bedside. vital signs stable. Coughing and deep breathing encouraged. Daughter requesting info on palliative care upon d.c.
--- NOTE | 2024-08-04 13:13 | CM ---
Addendum entered by Vu Ricketts 08/04/24 16:12:
Per [facility] liaison, it is confirmed with [employer] that a portable O2 tank will be delivered to pt's room today and a O2 concentrator will be delivered to pt's home today.
Please fax discharge instructions to [facility] at [phone]
D/c plan: home with [facility] and family support. Daughter to transport.
Addendum entered by Vu Ricketts 08/04/24 16:09:
Ambulatory pulse Ox performed, pt qualified for Home O2. VN liaison is arranging home O2 with [facility] [employer].
Original Note:
CM following re: discharge planning.
Discussed in rounds, reviewed pt's chart, met with pt and 2 pt's daughters at bedside.
[facility]N liaison is working to arrange home O2 with [employer]. An old trach placed yesterday.
IMM reviewed, placed on chart, pt has a copy.
D/C plan: home with [facility], home Oxygen. Family to transport at discharge.
CM will follow to assist pt with a safe discharge home.
--- NOTE | 2024-08-04 13:42 | W.PN.HOSP.TC ---
Today's Communication/Plan
-
Pending DME arrangement
Assessment / Plan
Assessment / Plan
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
overnight 08/02/24. Bronch culture grew MSSA and Acinetobacter, so ID started Minocycline. CM working on home O2 and DME delivery.
A/P:
#L lower lobe bronchial mucus plug
#Squamous cell carcinoma of the larynx
#Acute on chronic hypoxic respiratory failure 2/2 above
s/p bronchoscopy. mucus clear, manager metrology had no concern for infection as a source, however Cx grew many presumptive S.aureus
Home O2 - CM working on it
mucinex, O2 supplements and pulmonary toilet - mgmt as per pulm
Cont to follow as outpatient for cancer treatment as established before
bronchodilators
Sputum Cx grew S.Aureus, but with negative procalcitonin - questionable if just colonization - ID consult
#Dysphagia 2/2 above
s/p PEG - cont feeding when able
#Ascending aortic aneurism
4.2cm - q6m MRI recommended
#Anemia
most likely 2/2 CA and chemo
follow CBC
#Anxiety d/o
Ativan PRN
DVT ppx on lovenox
Limited DNR - no intubation, CPR allowed
I have spent at least 59min reviewing chart, test results, communication with consultants and direct patient care
Anticipated Discharge: Within 24 hours
Subjective/Interval History
-
Date of Service: August 04, 2024
Objective Data
-
Labs:
Laboratory Results
08/04/24
04:15
WBC 7.3
Hgb 11.2 L
Hct 32.1 L
Plt Count 342
Sodium 132 L
Potassium 3.7
Chloride 92 L
Carbon Dioxide 32 H
BUN 15
Creatinine 0.4 L
Glucose 161 H
Calcium 8.4
Vital Signs:
Vital Signs
Temp Pulse Resp BP Pulse Ox
98.2 F 78 16 102/61 96
08/04/24 11:59 08/04/24 10:00 08/04/24 10:00 08/04/24 10:00 08/04/24 10:33
I&O
08/03/24 08/04/24 08/05/24
06:59 06:59 06:59
Intake Total 1500 / 2185 1420 / 1420
Output Total 1850 / 1850 2600 / 2600
Balance -350 / 335 -1180 / -1180
Review of Systems
-
History Source: Patient
All other systems: Reviewed and negative
Physical Exam
-
General: No Apparent Distress
HEENT: Tracheostomy Collar
GI: Soft, Nontender and Nondistended
Neuro: Awake, Alert and Oriented
Psych: Calm
--- NOTE | 2024-08-04 13:50 | PTCARENOTE ---
Pt ambulated in hallway on RA approx 200 feet. 96% at rest, 92% with ambulation. Updated chart and notified RT and VN.
--- NOTE | 2024-08-04 14:01 | VNURNOTE ---
02 testing performed, Dr Concepcion notified. Did not qualify for home 02. JASMYN Womack also notified.
--- NOTE | 2024-08-04 14:05 | W.DCSUMMARY ---
Addendum entered and electronically signed by Jamey Palencia MD 08/04/24 14:38:
As per updated assessmetn - patient will need 5L O2 via trach collar - CM will arrange tank and home portable - then d/c
Original Note:
Discharge Summary
Discharge Data
Date of Admission: 08/01/24
Date of Discharge: 08/04/24
-
Pending Results: No
Hospital Course
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
overnight 08/02/24. Bronch culture grew MSSA and Acinetobacter, so ID started Minocycline. As per respiratory assessment patient remained on trach collar RA during rest and ambulation with pulse O2 sat >92% on the day of d/c - not qualified for home
O2. Medically stable for d/c to continue working with Oncologist on further treatment
I have spent at least 39min preparing patient discharge
Patient was managed for:
#L lower lobe bronchial mucus plug
#Squamous cell carcinoma of the larynx
#Acute on chronic hypoxic respiratory failure 2/2 above
#Dysphagia 2/2 above
#Ascending aortic aneurism
#Anemia of chronic disease
#Anxiety d/o
Discharge Plan
-
Patient Disposition: Home (Routine Discharge)
Discharge Diagnosis/Procedures: Bronchial obstruction
Diet: Tube feeding
Activity: As tolerated
Driving Restrictions: No driving
Referrals:
Jarrett Montalvo MD [Active] - in three to four days
Jona Mixon DO [Family Provider] -
Shashank Hoff MD [Active] - in three to four days
Prescriptions:
New
minocycline 50 mg Capsule
100 mg feeding tube Q12 Qty: 19 0RF
Continued
scopolamine base 1 mg over 3 days patch 3 day
1 patch transdermal Q3D PRN (Reason: excessive secretions) Qty: 4 0RF
lorazepam 2 mg/mL concentrate
0.5 mg feeding tube Q8HPRN PRN (Reason: anxiety)
acetaminophen liquid
1 dose feeding tube Q6HPRN PRN (Reason: mild pain)
ipratropium-albuterol 0.5 mg-3 mg(2.5 mg base)/3 mL solution for nebulization
3 ml inhalation R Q6HPRN PRN (Reason: SOB)
guaifenesin 100 mg/5 mL liquid
200 mg feeding tube QID@08,12,16,20
Discharge Orders:
Discharge Patient (As Directed); Ordered 08/04/24
Ordered By: Jamey Palencia
Discharge Date and Time
Print Language: [place]ORE[place]
--- NOTE | 2024-08-04 14:27 | PTCARENOTE ---
Pt complained of SOB while in chair on RA. O2 sat 92%. Ambulated 50 feet in room on RA, Pulse Ox 87%. placed on 5L, now O2 sat 96%, Updated CM, VN. and Dr. Palencia.
--- NOTE | 2024-08-04 14:52 | VNURNOTE ---
Amendment - New test for home 02 performed. Results and 02 rx sent to [facility].
--- NOTE | 2024-08-04 16:10 | VNURNOTE ---
Spoke with Michelle at [facility] [phone] option 4. Confirmed that portable 02 tank will be delivered bedside today and concentrator will be delivered to patient's home today. Daughter aware of copay and paid (per Fabiana at [facility]).
Delivery time TBD. She is on the schedule for today. Michelle informed this author that deliveries can be done till 10pm. care team notified.
--- NOTE | 2024-08-04 16:11 | W.PN.UPDATE ---
Update Note
Progress Note Update
as per CM - tank and concentrator will be delivered today, safe to d/c when family will confirm
--- NOTE | 2024-08-04 16:21 | W.PN.UPDATE ---
Update Note
Progress Note Update
will leave on 5L trach collar tank, but we dont have set time when patient will get her concentrator, which means that she can run out of O2 in the tank before it will happen. I discussed with daughter - plan is for the patient to leave the hospital
when concentrator actually will be delivered. I will place D/C order stating to dc only when confirmed concentrator delivery with the family
RN, JASMYN and family notified
[2024-08-04] MEDS: LOVENOX 40 MG SC (17:13)
--- NOTE | 2024-08-04 18:36 | PTCARENOTE ---
Pt had [address] asymptomic, resolved in seconds. Dr. Palencia aware. preparing for d.c. to home tonight with home O2 once supplies delivered.
--- NOTE | 2024-08-04 22:08 | PTCARENOTE ---
Assumed care of patient @ 1930, basic assessment done. no changes patient set to be discharged home with home o2. daughter bedside. waiting on oxygen company to deliver home o2 and compressor. Gave PO abx so patient wouldn't miss dose. Discahrge
instructions reviewed, no questions at this time. IV removed, tube feeds stopped and flushed. Helped patient get dressed, wheelchair used to take patient down to daughter who was driving patient home.
== END 2024-08-04 21:00 | disposition home health service (06) | DRG 190 ==
LOC: ICU 20:15
PROVIDERS: Registered Nurse; ADMITTING PHYSICIAN Internal Medicine; ATTENDING PHYSICIAN Internal Medicine; CONSULT PHYSICIAN Internal Medicine Critical Care Medicine; EMERGENCY PHYSICIAN Emergency Medicine; FAMILY PHYSICIAN Family Medicine; OTHER PHYSICIAN Internal Medicine Hematology & Oncology; OTHER PHYSICIAN Otolaryngology; OTHER PHYSICIAN Student in an Organized Health Care Education/Training Program
PROC: 0BC18ZZ Extirpation of Matter from Trachea, Via Natural or Artificial Opening Endoscopic (ICD-10-PCS; 2024-08-02)
PROC: 0B958ZZ Drainage of Right Middle Lobe Bronchus, Via Natural or Artificial Opening Endoscopic (ICD-10-PCS; 2024-08-02)
PROC: 0B948ZZ Drainage of Right Upper Lobe Bronchus, Via Natural or Artificial Opening Endoscopic (ICD-10-PCS; 2024-08-02)
PROC: 0B21XFZ Change Tracheostomy Device in Trachea, External Approach (ICD-10-PCS; 2024-08-03)
DX: J44.0 Chronic obstructive pulmonary disease with (acute) lower respiratory infection (principal); J15.29 Pneumonia due to other staphylococcus; J96.21 Acute and chronic respiratory failure with hypoxia; J15.61 Pneumonia due to Acinetobacter baumannii; J98.11 Atelectasis; E87.1 Hypo-osmolality and hyponatremia; R64 Cachexia; Z68.1 Body mass index [BMI] 19.9 or less, adult; Z66 Do not resuscitate; C32.1 Malignant neoplasm of supraglottis; E78.00 Pure hypercholesterolemia, unspecified; D63.0 Anemia in neoplastic disease; R13.19 Other dysphagia; I71.21 Aneurysm of the ascending aorta, without rupture; F41.9 Anxiety disorder, unspecified; D75.839 Thrombocytosis, unspecified; R73.9 Hyperglycemia, unspecified; D72.829 Elevated white blood cell count, unspecified; E88.09 Other disorders of plasma-protein metabolism, not elsewhere classified; Z93.0 Tracheostomy status; Z87.891 Personal history of nicotine dependence; Z85.828 Personal history of other malignant neoplasm of skin; Z79.899 Other long term (current) drug therapy; Z93.1 Gastrostomy status; Z43.0 Encounter for attention to tracheostomy; Z96.0 Presence of urogenital implants; Z11.52 Encounter for screening for COVID-19
CPT/HCPCS: 71045; 71275; 80048; 80053; 82607; 82728; 82746; 82805; 83540; 83550; 83880; 84145; 84484; 85025; 85027; 87070; 87077; 87147; 87186; 87205; 87502; 87811; 93005; 94640; 99285; Q9967

== ENCOUNTER 2024-08-06 17:41 | Inpatient (IN) | payer OTHER, SELFPAY ==
[2024-08-06] VITALS (10 sets, daily range): BP systolic 93–139; BP diastolic 60–90; BMI 19.2
--- NOTE | 2024-08-06 14:34 | EDRN ---
Resp suctioned pt and pt able to breathe better. Pt has lot of thick mucous in trach, no inner canula or spare trach came w/ pt.
--- NOTE | 2024-08-06 14:44 | EDRN ---
Family just arrived.
--- NOTE | 2024-08-06 14:54 | ED.GENMED ---
History of Present Illness
General
Chief Complaint: Breathing Problem
Source: patient
Time Seen by Provider: 08/06/24 14:26
History of Present Illness
History of Present Illness:
79-year-old female presents the emergency room for evaluation of respirate difficulty. 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 Patient was recently hospitalized for mucous plugging in her lung requiring bronchoscopy.
Over the course of the morning family states that she has been having copious secretions which are thick and requiring frequent suctioning. Family states they are having difficulty passing the suction catheter into the tracheostomy more than 4 cm
per patient developed significant hypoxia and distress prompting them to remove her inner-cannula. Despite this she continued to have noisy breathing and hypoxia. 911 was called. Medics found the patient as were hypoxic in the 80s. They put on
100% oxygen and got her up into the low 90s. Patient arrives with stridorous type respirations from the trachea.
Past History
Past History
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
ED Past Surgical History: Orthopedic and Other (Tubal ligation; tracheostomy, PEG tube placement and Port-A-Cath placement May 2024)
Patient has exhibited threatening behavior?: No
Social History
Tobacco: Former smoker (Quit smoking prior to hospitalization May 2024.)
Alcohol: None
Personal:
Living: with family
Employment: Retired
Family History
Family History: Other (Noncontributory)
Phy Exam
Physical Exam
Physical Exam:
General: Awake, Alert, cachectic and chronic ill-appearing, increased work of breathing
Vitals: unremarkable
Head: Atraumatic
Eyes: Pupils equal, EOMI
Neck: Tracheostomy in place, noisy air movement through the trachea. No inner cannula in place.
Lungs: Decreased breath sounds bilaterally, transmitted sounds of upper airway
Heart: Regular rate, no murmurs
Abd: Soft, feeding tube in place,, No pulsatile mass
Neuro: Grossly nonfocal
Skin: Warm, dry, no rash
Extremities: pulses equal b/l, no edema
Scores
Heart Failure Risk
Heart Failure Risk Score: Not Applicable
Course
Orders/Labs/Results
Orders:
Orders
08/06/24 14:47
Cardiac Monitoring- Treatment ONCE
Cr Chest Portable [CR Chest Portable - 1 View] Urgent
Comment:
Reason For Exam: respiratory distress, trach w/ mucous plug
Reason Study Needs to be Portable: Unable to Transport
08/06/24 14:50
Complete Blood Count/With Diff Urgent
Comprehensive Metabolic Panel Urgent
08/06/24 15:36
Ipratropium/Albuterol Sulfate [Duoneb] 3 ml .ROUTE .STK-MED ONE
Racepinephrine [Vaponefrin Nebs] 0.5 ml .ROUTE .STK-MED ONE
08/06/24 15:39
Racepinephrine [Vaponefrin Nebs] 0.5 ml INH R NOW STA
08/06/24 16:42
Admit/Transfer Patient As Directed
Co-Sign Provider:
Level of Care: Inpatient admission
Assign to:: IMU- Intermediate Care
Physician / Group: aleksandra
Diagnosis: mucous plug
Reason for Hospitalization: mucous plug
Expected length of stay greater than two midnights?: Yes
ELOS- Estimated Length of Stay in days: 3
I certify the patient meets the requirements for IP care: Yes
PRN Pain Medication Management As Directed
May give lesser potent ordered pain med per pt: Yes
preference::
Protocol:: Medication orders for pain may be administered in a
manner that supports deferring to patient preference
when the pt is:
- Requesting an ordered lesser potent pain medication.
Least to most potent pain medications are defined
as: acetaminophen < NSAID < tramadol < opioids
(morphine, oxycodone, hydromorphone).
- Requesting a lesser dose of the same medication IF
ORDERED.
- Requesting a less intrusive route of administration
if both routes are prescribed by the provider (PO <
IV).
08/06/24 16:45
Code Status As Directed
Resuscitation Status: Limited DNR
Limited DNR: -No intubation
Abnormal Lab Results
08/06/24
14:50
RBC 3.68 L 10^6/uL
(4.20-5.40)
Hgb 11.1 L g/dL
(12.0-16.0)
Hct 31.9 L %
(37.0-47.0)
Abs Immat Gran (auto) 0.1 H 10^3/uL
(0-0.05)
Absolute Lymphs (auto) 0.7 L 10^3/uL
(1.2-3.4)
Immature Gran % 0.8 H %
(0-0.5)
Neutrophils % 78.7 H %
(42.2-75.2)
Lymphocytes % 10.1 L %
(20.5-51.1)
Sodium 133 L mmol/L
(135-145)
Chloride 90 L mmol/L
(98-107)
Carbon Dioxide 33 H mmol/L
(22-30)
BUN 26 H mg/dl
(7-17)
Creatinine 0.4 L mg/dL
(0.6-1.0)
Glucose 204 H mg/dl
(70-99)
Total Protein 5.9 L g/dl
(6.3-8.2)
Albumin 3.3 L g/dl
(3.5-5.0)
08/06/24 14:50
08/06/24 14:50
Vital Signs
Initial and Last Documented VS:
Initial Vital Signs
Pulse Resp BP Pulse Ox
113 24 139/86 98
08/06/24 14:28 08/06/24 14:28 08/06/24 14:28 08/06/24 14:28
Last Documented Vital Signs
Pulse Resp BP Pulse Ox
90 18 97/78 98
08/06/24 17:30 08/06/24 17:30 08/06/24 17:00 08/06/24 17:30
MDM/Problems Addressed
Differential Diagnosis Includes:
Mucous plugging, tracheitis, progression of tracheal mass
MDM/Problems Addressed:
Patient presents due to difficulty breathing, mucous plugging and hypoxia at home. The inner cannula of her tracheostomy was removed at home. Here in the emergency room immediately after arrival we began using suction to try to clear her airway.
Racemic epinephrine was also administered. Decision made to change her tracheostomy given the lack of inner cannula and it seemed like continued mucous plugging. A 6 oh Shiley without a cuff was easily placed in the stoma after the existing
tracheostomy was removed. The stylette was used during placement of the tracheostomy. Patient immediately had difficulty ventilating through the new trach. We suctioned through the tracheostomy and removed a very large mucous plug which appeared
brown with old blood. Once this mucous plug was removed the patient was more comfortable. Will continue to treat her with humidified oxygen but given the significant respiratory difficulty throughout the day we will hospitalize the patient for
observation at least overnight. ENT consultation can be performed at the morning to see if there is any interventions that might help avoid this recurrent issue.
Acute Exacerbation and/or Progression of Chronic Illness: Cancer (Tracheal)
*Radiology
Radiology exam reviewed: preliminary read by ED provider (No acute finding on chest x-ray)
*Pulse Oximetry
Patient hypoxic: yes
Comment: Patient at times hypoxic due to because plugging
*Critical Care Note
Total Time (30-74mins, 75-104mins- exclusive of procedures): 35 min
comment:
Critical care statement: A total of 35 minutes of critical care time was provided for this patient. This includes management of unstable vital signs, evaluation of the patient at bedside, reviewing the patient's pertinent medical records, discussion
with consultants, review of old EKGs and review of pertinent medical records. This time with separate from time utilized to perform the aforementioned documented procedures
ED Attending Note
-
Portions of this chart may have been created with voice recognition software.� Occasional wrong word or��sound alike� substitutions may have occurred due to the inherent limitations of voice recognition software.
Discharge Plan
Departure
Patient Disposition: Admit
Date of Disposition: 08/06/24
Time of Disposition: 16:14
Admit to: IMU
Presentation/result/management discussed w/ accepting MD/DO: Hospitalist
Condition: Fair
Discharge Problem:
Respiratory distress, Tracheostomy obstruction
Interventions
Interventions:
*Risk Screen - Suicide Last Done: 08/06/24 14:38
*Neglect/Abuse Screening Last Done: 08/06/24 14:38
ED- Fall Risk Assessment Last Done: 08/06/24 15:00
ED- Cardiac Assessment Last Done: 08/06/24 15:00
ED- Pulmonary Assessment Last Done: 08/06/24 15:00
[2024-08-06 15:09] LABS: % Eosinophils 1.7 % (0-6); % Immature Granulocytes 0.8 % (0-0.5); % Lymphocytes 10.1 % (20.5-51.1); % Monocytes 7.7 % (1.7-9.3); % Neutrophils 78.7 % (42.2-75.2); Absolute Basophils 0.1 10^3/uL (0-0.2); Absolute Eosinophils 0.1 10^3/uL (0-0.7); Absolute Immature Granulocytes 0.1 10^3/uL (0-0.05); Absolute Lymphocytes 0.7 10^3/uL (1.2-3.4); Absolute Monocytes 0.6 10^3/uL (0.1-0.6); Absolute Neutrophils 5.6 10^3/uL (1.4-6.5); Hematocrit 31.9 % (37.0-47.0); Hemoglobin 11.1 g/dL (12.0-16.0); Mean Corp Hgb Conc. 34.8 g/dL (33.0-37.0); Mean Corpuscular Hgb 30.2 pg (27.0-31.0); Mean Corpuscular Volume 86.7 fL (81.0-99.0); Mean Platelet Volume 9.4 fL (7.4-10.4); Nucleated Red Blood Cells % 0 %; Platelet Count 395 10^3/uL (130-400); Red Blood Cell Count 3.68 10^6/uL (4.20-5.40); Red Cell Dist. Width 13.9 % (11.5-14.5); White Blood Cell Count 7.2 10^3/uL (4.8-10.8)
--- NOTE | 2024-08-06 15:15 | RESPNOTE ---
@1450 Called to patient's room; pt was receiving blow by 100% oxygen via ambu. pt has #6.[address]. Pt trach completely occluded. pt suctioned for thick chung/bloody secretions. Airway opened up post suctioning. Placed pt on
40% trach mask. pulse ox 95%. pt shook her head that she felt much better.
[2024-08-06 15:17] LABS: ALT (SGPT) 22 U/L (0-35); AST (SGOT) 22 U/L (14-36); Albumin 3.3 g/dl (3.5-5.0); Alkaline Phosphatase 68 U/L (38-126); Blood Urea Nitrogen 26 mg/dl (7-17); Calcium 8.9 mg/dl (8.4-10.2); Carbon Dioxide 33 mmol/L (22-30); Chloride 90 mmol/L (98-107); Glucose 204 mg/dl (70-99); Potassium 3.6 mmol/L (3.5-5.1); Sodium 133 mmol/L (135-145); Total Bilirubin 0.2 mg/dl (0.2-1.3); Total Protein 5.9 g/dl (6.3-8.2); eGFR > 60.00
[2024-08-06] MEDS: VAPONEFRIN NEBS 0.5 ML INH (15:39)
--- NOTE | 2024-08-06 16:14 | HPS.HSE ---
Family Physician
-
Family Physician: Jona Mixon
Chief Complaint
-
Short of breath
History of Present Illness
59-year-old female presents the emergency room for evaluation of respirate difficulty. 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 Patient was recently hospitalized for mucous plugging in her lung requiring bronchoscopy.
Over the course of the morning family states that she has been having copious secretions which are thick and requiring frequent suctioning. Family states they are having difficulty passing the suction catheter into the tracheostomy more than 4 cm
per patient developed significant hypoxia and distress prompting them to remove her inner-cannula. Despite this she continued to have noisy breathing and hypoxia. 911 was called. patient noted hypoxic reuiring high flow oxygen. patient complained
of sore throat, JASMINE, chills, cough, sob. denied abdominal pain,n,v. patient has chronic diarrhea. denied dysuria or hematuria.
upon arrival she was suctioned. her trach changed in the ER. admitting for further managment.
Medical History
Past Medical History
Past Medical History: Reports Other
Additional Past Medical History:
High cholesterol
Kidney stones
COPD
Pneumonia
Past Surgical History: Reports None
Additional Past Surgical History:
Right ureteroscopy
right distal radius ORIF
Social History
Tobacco: Former Smoker
Alcohol: None
Drug: None
Living: With Family
Family History
Family History: Not pertinent
Allergies / Home Medications
Allergies reflects when Allergies were last updated in [facility].
Home Medications with original date entered in [facility]
Allergy/Medication List:
Allergies
Allergy/AdvReac Type Severity Reaction Status Date / Time
No Known Allergies Allergy Verified 08/06/24 14:28
Home Medications
acetaminophen 1 dose feeding tube Q6HPRN PRN mild pain 08/01/24
guaifenesin 100 mg/5 mL oral liquid 200 mg feeding tube QID@08,12,16,20 08/01/24
ipratropium 0.5 mg-albuterol 3 mg (2.5 mg base)/3 mL nebulization soln 3 ml inhalation R Q6HPRN PRN SOB 08/01/24
lorazepam 2 mg/mL oral concentrate 0.5 mg feeding tube Q8HPRN PRN anxiety 08/01/24
scopolamine base 1 mg over 3 days transdermal patch 1 patch transdermal Q3D PRN excessive secretions #4 ea 08/01/24
minocycline 50 mg capsule 100 mg (2 x 50 mg) feeding tube Q12 #19 caps 08/04/24
sertraline 20 mg/mL oral concentrate 50 mg feeding tube DAILY 08/06/24
Review of Systems
-
Constitutional: Reports Chills
EENT: Reports Sore Throat
Respiratory: Reports Cough and Trouble Breathing
Cardiac: Reports No Symptoms
Abdomen/GI: Reports No Symptoms
: Reports No Symptoms
Musculoskeletal: Reports No Symptoms
Skin: Reports No Symptoms
Neurological: Reports Headache
Endocrine: Reports No Symptoms
Hematologic/Lymphatic: Reports No Symptoms
Psych: Reports No Symptoms
Physical Exam
Vital Signs
Vital Signs
Pulse Resp BP Pulse Ox
116 15 108/60 96
08/06/24 15:15 08/06/24 15:15 08/06/24 15:00 08/06/24 15:00
Physical Exam
General: Well Developed, Well Nourished and No Apparent Distress
HEENT: NormoCephalic, Moist mucous membranes and Atraumatic
Respiratory: Rales
Cardiac: S1/S2 and Regular Rhythm; No Murmur or Rub
GI: Soft, Non Tender, Non Distended and Normal Bowel Sounds; No Organomegaly
Rectal: Deferred by Provider
Musculoskeletal: No Clubbing, No Cyanosis and No Edema
Skin: No Rash
Neuro: AO x 3 and Nonfocal/grossly intact
Psych: Calm
Laboratory Results
-
08/06/24 14:50
08/06/24 14:50
Laboratory Results
Total Bilirubin 0.2 mg/dl (0.2-1.3) 08/06/24 14:50
AST 22 U/L (14-36) 08/06/24 14:50
ALT 22 U/L (0-35) 08/06/24 14:50
Alkaline Phosphatase 68 U/L (38-126) 08/06/24 14:50
Data Reviewed
-
Diagnostic Radiology: Report Reviewed by me
Impression/Plan
-
#acute hypoxia likley from Mucous plug
# History of tracheostomy for squamous cell carcinoma of the larynx
-receiving mid flow, continue supplemental oxygen keep sat >92
-wean as tolerated
-nebs prn, chest PT
-[facility]
-Patient was getting chemo and radiation
#Dysphagia 2/2 above
s/p PEG - cont feeding when able
# Anemia likely secondary to chronic disease
-Hemoglobin 11.1
-No active bleeding
-Continue to monitor
#Anxiety d/o
Ativan, sertraline PRN
#DVT ppx on Lovenox
#Limited DNR - no intubation, CPR allowed
--- NOTE | 2024-08-06 16:20 | EDRN ---
Dr. Loco w/ resp therapist assist changed claire trach 6.5 to a new 6.5 [place] at this time. Large mucous plug in old trach and suctioned from new trach post placement.
--- NOTE | 2024-08-06 16:30 | EDRN ---
Pt was seen by Lio calixto/ hospitalist group.
--- NOTE | 2024-08-06 16:32 | EDRN ---
Pt sleeping quietly at this time w/ relaxed breathing.
--- NOTE | 2024-08-06 17:20 | EDRN ---
Dr. Shearer was in to see pt.
--- NOTE | 2024-08-06 17:22 | W.PN.UPDATE ---
Update Note
Progress Note Update
This is an addendum to the H&P written by Rachel Garcia on 08/06/2024. Patient seen and examined independently with LDR NURSE.
79-year-old female history of squamous cell carcinoma of larynx previously on chemoradiation with chronic trach collar, COPD, former smoker, here for shortness of breath over the past few days with thick secretions requiring frequent suctioning.
Patient was hypoxic to 80s. Patient was previously admitted a few days ago for similar and underwent bronchoscopy with improvement in oxygen requirements. She was discharged on 5 L via trach collar.
Chest x-ray unremarkable. Patient was suctioned without improvement developed stridor and shortness of breath. Trach was exchanged and she mucous plugged again and a massive bag with suction. She is feeling much better. She is currently on 10 L
trach collar. Mild rhonchi bilaterally. DuoNebs, suctioning, mucolytic's as needed. Pulmonary consulted.
--- NOTE | 2024-08-06 17:34 | EDRN ---
Purewyck placed for pt comfort as pt is exhausted and had airway difficulty earlier.
[2024-08-06] MEDS: MINOCIN 100 MG TUBE (21:52)
[2024-08-06] MEDS: LOVENOX 30 MG SC (21:52)
[2024-08-06] MEDS: ROBITUSSIN 200 MG TUBE (21:52)
[2024-08-07] VITALS (27 sets, daily range): BP systolic 91–129; BP diastolic 47–83; BMI 18.5; BMI 17.7
[2024-08-07] MEDS: DUONEB 3 ML INH (00:04)
[2024-08-07 06:21] LABS: Hematocrit 30.2 % (37.0-47.0); Hemoglobin 10.5 g/dL (12.0-16.0); Mean Corp Hgb Conc. 34.8 g/dL (33.0-37.0); Mean Corpuscular Hgb 31.1 pg (27.0-31.0); Mean Corpuscular Volume 89.3 fL (81.0-99.0); Mean Platelet Volume 9.5 fL (7.4-10.4); Platelet Count 354 10^3/uL (130-400); Red Blood Cell Count 3.38 10^6/uL (4.20-5.40); Red Cell Dist. Width 13.7 % (11.5-14.5)
[2024-08-07 06:40] LABS: Blood Urea Nitrogen 24 mg/dl (7-17); Calcium 8.9 mg/dl (8.4-10.2); Carbon Dioxide 32 mmol/L (22-30); Chloride 95 mmol/L (98-107); Estimated Creatinine Clearance 51 ml/min; Glucose 104 mg/dl (70-99); Sodium 135 mmol/L (135-145); eGFR > 60.00
--- NOTE | 2024-08-07 09:29 | VNURNOTE ---
Chart reviewed. Patient current with [facility] nursing- she had 1 nursing visit at home on 08/05 since previous admission. Ms. Worthy has had multiple ER visits and hospital admissions since May 2024 (trach placed 05/25/24). Family has been taught
suctioning, trach care and management. They have also been taught PEG tube feeds. Per last admission new home 02 set up w/[employer] [facility]. Most recent hospitalization pt was bronched for bloody mucus plug. Considering frequent ER and hospital
admissions, despite having [facility] ??can family and pt able to manage care adequately at home? Will continue to monitor hospitalization and DC plans.
--- NOTE | 2024-08-07 09:30 | CON.INTV ---
Consultation
Consultation Request
Date/Time Consultation Requested: 08/07
Date/Time Consultation Performed: 08/07
Reason for Consultation: Hypoxia
Medical History
-
History of Present Illness:
History obtained from the patient, and reviewing prior hospital records, chart. Patient is an 79-year-old female with history of recurrent bronchial plugs requiring bronchoscopy, suction, history of dysphagia, laryngeal cancer status post
tracheotomy who was recently discharged 08/04/2024 for hypoxic respiratory insufficiency. Of note, patient was discharged on 5 L at that time. Patient returns to [facility] 08/06/2024 because of increased secretions, requiring frequent
suction. Patient developed increased hypoxia and mammo was called. Patient was placed on 100%. Upon arrival she was stridorous, pulse 113, breathing at 24, blood pressure 139/86, 98%. Racemic epinephrine was administered and tracheotomy change
was done at the bedside. #6 Shiley cuffless was placed. Suction was pursued and large mucous plug was removed. We are asked to help from pulmonary standpoint 08/07/2024
Presently, patient is feeling much better. She is without shortness of breath, chest pain. She denies any difficulty coughing. She is presently on 8 L, 98%.
.
PMH: Laryngeal cancer status post tracheotomy, feeding tube, history of COPD, nephrolithiasis, hypercholesterolemia. History of distal radius fracture November 2023, history of pulm nodules followed by pulmonary
Past Medical History
Past Medical History: None (See above)
Past Surgical History: None (See above)
Social History
Tobacco: Smoker ([id number], continues to smoke quarter pack since 2022)
Alcohol: None
Drug: None
Living: With Family
Employment: Not Employed
Family History
Family History: Other (Mother with throat cancer, son with kidney disease and skin cancer)
Allergies / Home Medications
Allergies
Allergy/AdvReac Type Severity Reaction Status Date / Time
No Known Allergies Allergy Verified 08/06/24 14:28
Home Medications
�Medication �Instructions �Recorded �Confirmed �Last Taken �Type
acetaminophen 1 dose feeding tube Q6HPRN PRN 08/01/24 08/06/24 Unknown History
mild pain
guaifenesin 100 mg/5 mL oral liquid 200 mg feeding tube QID@08,12,16,20 08/01/24 08/06/24 08/06/24 12:00 History
ipratropium 0.5 mg-albuterol 3 mg 3 ml inhalation R Q6HPRN PRN SOB 08/01/24 08/06/24 Unknown History
(2.5 mg base)/3 mL nebulization
soln
lorazepam 2 mg/mL oral concentrate 0.5 mg feeding tube Q8HPRN PRN 08/01/24 08/06/24 08/06/24 13:00 History
anxiety
scopolamine base 1 mg over 3 days 1 patch transdermal Q3D PRN 08/01/24 08/06/24 08/01/24 Rx
transdermal patch excessive secretions #4 ea
minocycline 50 mg capsule 100 mg (2 x 50 mg) feeding tube 08/04/24 08/06/24 08/06/24 08:00 Rx
Q12 #19 caps
sertraline 20 mg/mL oral 50 mg feeding tube DAILY 08/06/24 08/06/24 08/06/24 History
concentrate
Review of Systems
-
All other systems: Negative unless noted
Vitals / Labs / Diagnostic Testing
Vital Signs
Temp Pulse Resp BP Pulse Ox
98.2 F 83 21 97/61 98
08/07/24 08:21 08/07/24 08:15 08/07/24 08:15 08/07/24 08:00 08/07/24 08:32
Lab Data
08/07/24 05:51
08/07/24 05:51
Diagnostic Testing:
Physical Exam
-
HEENT: Normocephalic and Anicteric
Cardiovascular: S1/S2, Regular Rhythm, Murmur (n) and Rub (n)
Respiratory: Clear, Wheeze (n), Rales (n), Rhonchi (n), Non-Labored Respirations and Other (Tracheotomy intact)
GI: Soft, Non Distended, Non Tender and Other (PEG tube intact)
Neurology: Awake, Alert and No Motor Deficits (Moves extremities)
Skin: Good Color
General: Comfortable
Assessment
-
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 We
are asked to help from pulmonary standpoint regarding possible need for bronchoscopy
Acute hypoxic respiratory insufficiency, 80%
Requiring 100% nonrebreather
Improved following tracheotomy change, suction
Intermittent atelectasis
Intermittent bloody secretions
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
Undergoing chemotherapy/radiation
Status post tracheotomy, PEG
Requiring emergent tracheotomy change 08/02 and 08/07
Now with #6 Shiley cuffless
Conditions present prior to admission
COPD without acute exacerbation
Anxiety
Pulmonary nodules-followed by Dr. Rooney
Ongoing tobacco history, 50+ pack year
Hyperlipidemia.
Renal calculi. Laser lithotripsy and stent.
Distal radius fracture 11/2023. Tubal ligation.
Limited DNR
Plan/recommendations
At this time, patient appears to be comfortable.
Ongoing issues with tracheal occlusion, plugs noted
This is now the second time that she has had plugs requiring emergent tracheotomy change
Moving forward
I suspect patient requires more aggressive tracheotomy care
Frequent suctioning, 3% saline, adequate nebulized therapy, mucolytic therapy
Frequent inner cannula change, trach care
She may benefit from nursing facility versus home?
Consider case management evaluation
Otherwise, presently no indication for bronchoscopy
Chest x-ray without significant atelectasis.
Left pleuroparenchymal atelectasis improved on most recent film
Continue with DVT prophylaxis: Lovenox
As needed nebulized therapy
Limited DNR status noted
We will follow
[2024-08-07] MEDS: ROBITUSSIN 200 MG TUBE ×3 (10:16→21:24)
[2024-08-07] MEDS: ZOLOFT ORAL CONCENTRATE 50 MG TUBE (10:17)
[2024-08-07] MEDS: MINOCIN 100 MG TUBE ×2 (10:24→21:24)
--- NOTE | 2024-08-07 10:45 | CM ---
CM reviewed pt with dtr/Cee and her spouse
Pt will frequent readmissions amnd ED visits throughout the past few months
Pt typically resides alone in a [place] with 0 ANUP
Patient's daughters Cee/SC and Michelle/LUZ are living with her now indefinitely to provide care
Pt requires 1 person assist for ambulation and personal care, no ADs are utilized or in the home
Pt utilizes a transport chair or WC for doctor's appt- does not own chair, utilizes medical office chairs
Pt's DMEs include hospital bed, trach collar/supplies, home O2, peg/tube feeds via pump all provided through [employer]
Pt is on 5L O2 baseline and home O2 set up goes up to 10L
Family provides trach care/suctioning, tube feeds and O2 care for patient
Pt is current with [facility]
Pt is under care at [facility] and attends outpt [facility] center for chemo on Mons (approx 2/5 sessions) and radiation M-F (approx week 4)
PCO\\P- Jona Mixon
Rx- Bushra
Discharge Disposition- likely home with [facility]
[2024-08-07] MEDS: ROBITUSSIN TUBE (12:15)
--- NOTE | 2024-08-07 12:16 | PTCARENOTE ---
Patient resting comfortably in bed, vital signs are stable on 10L trach collar. Suctioned 1x this shift so far per patient request. Emergency/extra trach and suction supplies requested from [facility].
--- NOTE | 2024-08-07 14:00 | CHAP ---
Msgr. Darion Gonzalez of [facility] in [place] was called by the family of the patient and came in to give the Sacrament of the Sick and an apostolic pardon to the patient. Time uncertain.
--- NOTE | 2024-08-07 14:14 | W.PN.HOSP.TC ---
Today's Communication/Plan
-
Wean O2 as tolerated
Assessment / Plan
Assessment / Plan
Physical Exam
NAD, resting comfortably in bed
Scleral anicteric
Moist mucous membranes
No JVD
CTA bilateral
Normal S1-S2 no murmurs
Soft nontender nondistended bowel sounds active
No peripheral pitting edema
Moves extremities spontaneously
AAOx3
Assessment and Plan
Acute on chronic hypoxemic respiratory failure secondary to mucous plugging
-Trach exchanged
-Per pulmonary needs more aggressive trach care
-Hypertonic saline 3%
-Wean oxygen as tolerated
Dysphagia
-Continue PEG tube
Squamous cell carcinoma of the larynx
-Outpatient oncology follow-up
Anticipated Discharge: 24 - 48 hours
Subjective/Interval History
-
Date of Service: August 07, 2024
Seen and examined. Remains on 10 L trach collar
Objective Data
-
Labs:
Laboratory Results
08/07/24
05:51
WBC 5.0
Hgb 10.5 L
Hct 30.2 L
Plt Count 354
Sodium 135
Potassium 4.0
Chloride 95 L
Carbon Dioxide 32 H
BUN 24 H
Creatinine 0.4 L
Glucose 104 H
Calcium 8.9
Vital Signs:
Vital Signs
Temp Pulse Resp BP Pulse Ox
98.2 F 78 19 115/71 97
08/07/24 08:21 08/07/24 13:00 08/07/24 13:00 08/07/24 13:00 08/07/24 13:59
I&O
08/06/24 08/07/24 08/08/24
06:59 06:59 06:59
Output Total 500 / 500
Balance -500 / -500
[2024-08-07] MEDS: SODIUM CHLORIDE 3% FOR INHALATION 1 VIAL INH (14:18)
[2024-08-07] MEDS: TYLENOL 650 MG TUBE (15:21)
[2024-08-07] MEDS: ATIVAN 0.5 MG TUBE (15:23)
--- NOTE | 2024-08-07 18:26 | PTCARENOTE ---
Patient arrived to IMU, assumed care for patient. Pt is normal sinus with PAC's on tele. Pt is on 10L humidified 02 via trach collar. O2 sat 99%. Trach assessed and changed dressing. Suctioned trach, thick white yellow mucus. PEG site dressing
changed and site cleaned with saline. Pt oriented to the unit. Family and friends at the bedside. Call holder is within reach.
[2024-08-07] MEDS: LOVENOX 30 MG SC (18:38)
[2024-08-08] VITALS (24 sets, daily range): BP systolic 99–132; BP diastolic 51–87; BMI 17.7
[2024-08-08 04:49] LABS: Hemoglobin 11.1 g/dL (12.0-16.0); Mean Corp Hgb Conc. 34.7 g/dL (33.0-37.0); Mean Corpuscular Hgb 30.8 pg (27.0-31.0); Mean Corpuscular Volume 88.9 fL (81.0-99.0); Mean Platelet Volume 9.2 fL (7.4-10.4); Platelet Count 407 10^3/uL (130-400); Red Cell Dist. Width 13.4 % (11.5-14.5); White Blood Cell Count 6.1 10^3/uL (4.8-10.8)
[2024-08-08 05:09] LABS: Blood Urea Nitrogen 35 mg/dl (7-17); Calcium 9.1 mg/dl (8.4-10.2); Carbon Dioxide 26 mmol/L (22-30); Chloride 95 mmol/L (98-107); Estimated Creatinine Clearance 49 ml/min; Glucose 101 mg/dl (70-99); Sodium 135 mmol/L (135-145); eGFR > 60.00
--- NOTE | 2024-08-08 06:06 | PTCARENOTE ---
Patient requiring frequent suctioning overnight. Remains on trach collar 10 liters 60 %.
[2024-08-08] MEDS: MINOCIN 100 MG TUBE ×2 (09:18→19:30)
[2024-08-08] MEDS: ROBITUSSIN 200 MG TUBE ×4 (09:19→19:31)
[2024-08-08] MEDS: ZOLOFT ORAL CONCENTRATE 50 MG TUBE (09:20)
--- NOTE | 2024-08-08 10:17 | PTCARENOTE ---
Assumed care for patient during the day, received report via nightshift RN. Pt normal sinus on tele with PAC's. Pt on 10L humidified O2 60% via trach collar. O2 sat 98%. Required suctioning this morning producing thick white yellow mucus. Pt AAOx3
and calm. Purewick clean and dry. Foam on sacrum clean, dry, and intact. Pt communicating by nodding, mouthing words, and writing things down. Call holder is within reach.
--- NOTE | 2024-08-08 11:19 | W.PN.PUL3 ---
Today's Communication / Plan
-
Ongoing tracheotomy care will be critical at home
Frequent suctioning, nebulized 3% saline in the a.m.
Frequent changing and cleaning up inner cannula
Can daughters be educated on removal of inner cannula, cleaning and replacement?
With appropriate cleaning kit
Humidified oxygen at night through TC at night to be set up as well
Assessment
-
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 We
are asked to help from pulmonary standpoint regarding possible need for bronchoscopy
Acute hypoxic respiratory insufficiency, 80%
Requiring 100% nonrebreather
Improved following tracheotomy change, suction
Intermittent atelectasis
Intermittent bloody secretions
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
Undergoing chemotherapy/radiation
Status post tracheotomy, PEG
Requiring emergent tracheotomy change 08/02 and 08/07
Now with #6 Shiley cuffless
Conditions present prior to admission
COPD without acute exacerbation
Anxiety
Pulmonary nodules-followed by Dr. Rooney
Ongoing tobacco history, 50+ pack year
Hyperlipidemia.
Renal calculi. Laser lithotripsy and stent.
Distal radius fracture 11/2023. Tubal ligation.
Limited DNR
Plan/recommendations
At this time, patient appears to be comfortable.
Ongoing issues with tracheal occlusion, plugs noted
This is now the second time that she has had plugs requiring emergent tracheotomy change
Moving forward
I suspect patient requires more aggressive tracheotomy care
Frequent suctioning, 3% saline, adequate nebulized therapy, mucolytic therapy
Frequent inner cannula change, trach care
Per case management correspondence, both daughters are now living with patient providing frequent tracheotomy care
Ongoing case management evaluation
May require training with regards to inner cannula replacement/cleaning, visiting nurse?
Otherwise, presently no indication for bronchoscopy
Chest x-ray without significant atelectasis.
Left pleuroparenchymal atelectasis improved on most recent film
Continue with DVT prophylaxis: Lovenox
As needed nebulized therapy
Limited DNR status noted
We will follow
Subjective Data
-
Date of Service:
Date of Service: August 08, 2024
Subjective:
Patient is comfortable. Feels improved compared to admission. Denies chest pain, cough. Has mild shortness of breath
Objective Data
Data Reviewed
Vital Signs / I&O / Oxygen:
Vital Signs
Temp Pulse Resp BP Pulse Ox
98.3 F 72 14 99/70 98
08/08/24 03:30 08/08/24 10:00 08/08/24 10:00 08/08/24 10:00 08/08/24 10:35
Intake and Output
08/07/24 08/08/24 08/09/24
06:59 06:59 06:59
Output Total 500 / 500
Balance -500 / -500
SaO2 98
Nasal Cannula flow liters per 10
minute
Physical Exam
General: Comfortable and Other (Tracheotomy site intact)
HEENT: Normocephalic and Anicteric
Cardiovascular: S1-S2, Regular Rhythm, Murmur (n) and Rub (n)
Respiratory: Wheeze (n), Crackles (n), Rhonchi (n) and Non-Labored Respirations
GI: Soft, Non Distended, Non Tender and Other (Feeding tube)
Neurology: Awake and Alert
Skin: Good Color
Labs/Micro/Reports
Lab Data
08/08/24 04:31
08/08/24 04:31
--- NOTE | 2024-08-08 12:23 | W.PN.UPDATE ---
Update Note
Progress Note Update
Met with daughter at bedside
Reviewed home tracheotomy care. Both daughters have been suctioning 'as needed'
They have been changing the inner cannula 7-8 times a day. Sometimes leaving it out as patient breathes better without inner cannula
It is noted patient has had stable breathing over the last 24 hours
Reviewed at length importance of tracheotomy care
At this point, would recommend every 4 hours suctioning during the day
Patient already has humidified oxygen set up at home. This should be used [id number] if able, but especially at nighttime
Will plan for 3% saline neb treatment once a day
Okay to continue ipratropium/albuterol every 6 hours during the day via nebulizer
Reviewed importance of airway clearance, cough mechanism with patient
Reviewed importance of daily inner cannula removal/cleaning/replacement
Reviewed with nursing
Respiratory care will be up later in the day with 3% nebulized treatment and plans to remove inner cannula to confirm technique with daughter
Patient took notes regarding the above
She is requesting that the above is also on the discharge instructions
This hopefully can be done at the time of discharge primary service
All questions answered
[2024-08-08] MEDS: SODIUM CHLORIDE 3% FOR INHALATION 1 VIAL INH (13:38)
--- NOTE | 2024-08-08 14:28 | W.PN.HOSP.TC ---
Today's Communication/Plan
-
Assessment / Plan
Assessment / Plan
Physical Exam
NAD, resting comfortably in bed
Scleral anicteric
Moist mucous membranes
No JVD
CTA bilateral
Normal S1-S2 no murmurs
Soft nontender nondistended bowel sounds active
No peripheral pitting edema
Moves extremities spontaneously
AAOx3
Assessment and Plan
Acute on chronic hypoxemic respiratory failure secondary to mucous plugging
-Trach exchanged
-Per pulmonary needs more aggressive trach care
-Hypertonic saline 3% nebs
-Wean oxygen as tolerated
Dysphagia
-Continue PEG tube
Squamous cell carcinoma of the larynx
-Outpatient oncology follow-up
Now on 5 L. Able to maintain throughout the night plan to discharge tomorrow
Pulmonary provided trach care recommendations. This has been placed on discharge
Anticipated Discharge: Within 24 hours
Subjective/Interval History
-
Date of Service: August 08, 2024
Seen and examined. No new complaints. No acute overnight events.
Spoke with daughter at bedside
Objective Data
-
Labs:
Laboratory Results
08/08/24
04:31
WBC 6.1
Hgb 11.1 L
Hct 32.0 L
Plt Count 407 H
Sodium 135
Potassium 4.0
Chloride 95 L
Carbon Dioxide 26
BUN 35 H
Creatinine 0.4 L
Glucose 101 H
Calcium 9.1
Vital Signs:
Vital Signs
Temp Pulse Resp BP Pulse Ox
98.3 F 77 19 113/68 97
08/08/24 03:30 08/08/24 13:56 08/08/24 13:56 08/08/24 12:00 08/08/24 13:56
I&O
08/07/24 08/08/24 08/09/24
06:59 06:59 06:59
Output Total 500 / 500
Balance -500 / -500
[2024-08-08] MEDS: LOVENOX 30 MG SC (16:55)
[2024-08-09] VITALS (19 sets, daily range): BP systolic 95–132; BP diastolic 57–94; PULSE 70; O2SAT 97
--- NOTE | 2024-08-09 01:52 | PTCARENOTE ---
Pt received from previous shift in bed, daughters at bedside. AAOx3, nonverbal communication. Telemetry = SR. Full physical assessment documented (refer to worklist). Jevity 1.5 at 20 mL via PEG, pt tolerating. Trach care completed, pt able to
clear secretions w/cough (mod, thick, white). Purewick external catheter changed and maintained. #20 RFA patent. Call holder within reach. Plan of care ongoing.
[2024-08-09 05:16] LABS: Hematocrit 29.5 % (37.0-47.0); Hemoglobin 10.5 g/dL (12.0-16.0); Mean Corp Hgb Conc. 35.6 g/dL (33.0-37.0); Mean Corpuscular Hgb 30.4 pg (27.0-31.0); Mean Corpuscular Volume 85.5 fL (81.0-99.0); Mean Platelet Volume 9.2 fL (7.4-10.4); Platelet Count 391 10^3/uL (130-400); Red Blood Cell Count 3.45 10^6/uL (4.20-5.40); Red Cell Dist. Width 13.7 % (11.5-14.5); White Blood Cell Count 3.9 10^3/uL (4.8-10.8)
[2024-08-09 05:25] LABS: Blood Urea Nitrogen 33 mg/dl (7-17); Calcium 8.8 mg/dl (8.4-10.2); Carbon Dioxide 28 mmol/L (22-30); Chloride 94 mmol/L (98-107); Estimated Creatinine Clearance 49 ml/min; Glucose 113 mg/dl (70-99); Potassium 3.7 mmol/L (3.5-5.1); Sodium 134 mmol/L (135-145); eGFR > 60.00
--- NOTE | 2024-08-09 08:32 | W.PN.PUL3 ---
Today's Communication / Plan
-
Discharge planning
Once a day 3% nebulizer
3 times a day DuoNeb nebulizer
Suction every 4-6 hours initially and then transition to 3 times daily with nebulized therapy and as needed
Humidified oxygen
Appropriate trach care, and her cannula cleaning and removal/replacement
Assessment
-
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 We
are asked to help from pulmonary standpoint regarding possible need for bronchoscopy
Acute hypoxic respiratory insufficiency, 80%
Requiring 100% nonrebreather
Improved following tracheotomy change, suction
Intermittent atelectasis
Intermittent bloody secretions
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
Undergoing chemotherapy/radiation
Status post tracheotomy, PEG
Requiring emergent tracheotomy change 08/02 and 08/07
Now with #6 Shiley cuffless
Conditions present prior to admission
COPD without acute exacerbation
Anxiety
Pulmonary nodules-followed by Dr. Rooney
Ongoing tobacco history, 50+ pack year
Hyperlipidemia.
Renal calculi. Laser lithotripsy and stent.
Distal radius fracture 11/2023. Tubal ligation.
Limited DNR
Plan/recommendations
At this time, patient appears to be comfortable.
Ongoing issues with tracheal occlusion, plugs noted
This is now the second time that she has had plugs requiring emergent tracheotomy change
Moving forward
Daughter is aware of need for tracheotomy care. Today she stated that they cut down on suction as an outpatient due to discomfort on the patient and blood-tinged mucus which she thought was due to aggressive suction
Reviewed importance of finding a balance between adequate airway clearance/suction and avoiding unnecessary suction trauma
Frequent suctioning, 3% saline, adequate nebulized therapy (Duonebs TID), mucolytic therapy. Presently, patient is only getting DuoNebs as needed instructed daughter to
Continue with nebulized therapy 3 times a day. This should be followed with suction
Frequent inner cannula change, trach care
Per case management correspondence, both daughters are now living with patient providing frequent tracheotomy care
Ongoing case management evaluation
May require training with regards to inner cannula replacement/cleaning, visiting nurse?
Would confirm Patient/family understanding
[place] having visiting nurse to help with this?
Otherwise, presently no indication for bronchoscopy
Chest x-ray without significant atelectasis.
Left pleuroparenchymal atelectasis improved on most recent film
Continue with DVT prophylaxis: Lovenox
As needed nebulized therapy
Limited DNR status noted
We will follow
Subjective Data
-
Date of Service:
Date of Service: August 09, 2024
Subjective:
Patient continues to improve. She feels her breathing is better than yesterday. She does cough. She denies pain. She denies nausea, abdominal pain. Daughter at bedside
Objective Data
Data Reviewed
Vital Signs / I&O / Oxygen:
Vital Signs
Temp Pulse Resp BP Pulse Ox
98.5 F 64 13 97/60 96
08/09/24 03:35 08/09/24 06:00 08/09/24 06:00 08/09/24 06:00 08/09/24 06:00
Intake and Output
08/08/24 08/09/24 08/10/24
06:59 06:59 06:59
Intake Total 540 / 540
Output Total 200 / 200
Balance 340 / 340
SaO2 96
Nasal Cannula flow liters per 10
minute
Physical Exam
General: Comfortable and Other (Tracheotomy site intact)
HEENT: Normocephalic and Anicteric
Cardiovascular: S1-S2, Regular Rhythm, Murmur (n) and Rub (n)
Respiratory: Wheeze (n), Crackles (n), Rhonchi (Few end expiratory) and Non-Labored Respirations
GI: Soft, Non Distended, Non Tender and Other (Feeding tube)
Neurology: Awake and Alert
Skin: Good Color
Labs/Micro/Reports
Lab Data
08/09/24 04:44
08/09/24 04:44
[2024-08-09] MEDS: MINOCIN 100 MG TUBE (09:26)
[2024-08-09] MEDS: TYLENOL 650 MG TUBE (09:26)
[2024-08-09] MEDS: ROBITUSSIN 200 MG TUBE ×2 (10:25→15:32)
[2024-08-09] MEDS: ZOLOFT ORAL CONCENTRATE 50 MG TUBE (10:26)
--- NOTE | 2024-08-09 11:09 | PTCARENOTE ---
Patient coughing and bringing up thick white sputum. She was suctioned one time for the same. Patient tolerating tube feed jevity 1.5 at 40 mls/hr with 25 mls water flush. Patient complaining of some back pain. Medicated with tylenol which
patient reports relief.
[2024-08-09] MEDS: SODIUM CHLORIDE 3% FOR INHALATION 1 VIAL INH (13:39)
--- NOTE | 2024-08-09 14:38 | CM ---
Addendum entered by Lissy Mascorro RN 08/09/24 16:03:
O2 5L trach collar per nurse.
[facility] Liaison ordering trach supplies due to new trach size than patient had at home.
Spoke with daughter Cee again; informed her that patient ambulated with PT who recommended HH. She was made aware that trach supplies need to be ordered by [facility] today prior to d/c. Cee is out driving right now and asks that [facility]
Liaison follow up with her sister Michelle re; the supplies---> message to Camelia WOOD.
Addendum entered by Lissy Mascorro RN 08/09/24 16:02:
PT recommends HH.
Original Note:
Patient with Hx trach, PEG feeds with Dx Acute on chronic hypoxemic respiratory failure secondary to mucous plugging, dysphagia. Trach #6 shiley per nurse. Jevity tube feeds. PT Eval today.
Met with patient and daughter Michelle, and spoke with daughter Cee by phone; all agree to d/c home today with resumption of [facility], by car. IMM completed. Daughters confirm that they have adequate tube feed supplies, suction equipment, trach
supplies - humidifier, nebulizer, home O2 in place. Although the patient is normally ambulatory without an assistive device, daughters request PT Eval today due to bedrest while hospitalized. Michelle has patient's portable O2 and feels confident
patient can be transported home via car.
Daughter Michelle works as a caregiver for [employer]. She says her sister is looking into possibly hiring a caregiver for their mother.
Message from BUSTER Shanks; she is recommending HH PT.
Plan home today with resumption [facility], by car.
--- NOTE | 2024-08-09 15:51 | PTCARENOTE ---
Patient worked with PT/OT. Ambulated in the hallway with assisted x1. Patient weak and slow but she did well. Currently out of bed to chair. Waiting for confirmation of supplies prior to discharging. Patient's daughter will be deriving patient
home.
--- NOTE | 2024-08-09 15:53 | W.PN.HOSP.TC ---
Today's Communication/Plan
-
More than 30 minutes spent in discharge including
Final examination of the patient
Summarizing hospital stay
Instructions for continuing care to all relevant caregivers
Preparation of discharge records, prescriptions, and referral forms
Total time spent (in minutes): 32mins
Assessment / Plan
Assessment / Plan
Physical Exam
NAD, resting comfortably in bed
Scleral anicteric
Moist mucous membranes
No JVD
CTA bilateral
Normal S1-S2 no murmurs
Soft nontender nondistended bowel sounds active
No peripheral pitting edema
Moves extremities spontaneously
AAOx3
Assessment and Plan
Acute on chronic hypoxemic respiratory failure secondary to mucous plugging
-Trach exchanged
-Per pulmonary needs more aggressive trach care
-Hypertonic saline 3% nebs daily
-TID duoneb
-Wean oxygen as tolerated
Dysphagia
-Continue PEG tube
Squamous cell carcinoma of the larynx
-Outpatient oncology follow-up
Now on 5 L.
DC home
Anticipated Discharge: Today
Subjective/Interval History
-
Date of Service: August 09, 2024
seen and examined. no new complaints. no acute overnight events
Objective Data
-
Labs:
Laboratory Results
08/09/24
04:44
WBC 3.9 L
Hgb 10.5 L
Hct 29.5 L
Plt Count 391
Sodium 134 L
Potassium 3.7
Chloride 94 L
Carbon Dioxide 28
BUN 33 H
Creatinine 0.4 L
Glucose 113 H
Calcium 8.8
Vital Signs:
Vital Signs
Temp Pulse Resp BP Pulse Ox
98.1 F 72 12 110/71 97
08/09/24 07:55 08/09/24 15:00 08/09/24 15:00 08/09/24 14:03 08/09/24 15:00
I&O
08/08/24 08/09/24 08/10/24
06:59 06:59 06:59
Intake Total 540 / 540
Output Total 200 / 200
Balance 340 / 340
--- NOTE | 2024-08-09 16:01 | W.DCSUMMARY ---
Discharge Summary
Discharge Data
Date of Admission: 08/06/24
Date of Discharge: 08/09/24
-
Pending Results: No
Hospital Course
79F with hx of squamous cell carcinoma of larynx previously on chemoradiation with chronic trach collar, COPD, former smoker presented with shortness of breath, low oxygen sats and mucous plugging of trach. This was exchanged in the ED. With
improvement in o2 sats. Evaluated by pulmonary. No indication for bronchoscopy. Recommended trach care instructions which are below. Able to wean o2 needs to baseline 5l.
cxr
IMPRESSION:
Interval improvement in small pleural effusions. Minor atelectasis at the lung bases. No evidence of pneumonia or congestive heart failure.
Outpatient pulmonary follow up
Outpatient ENT follow up
Outpatient pcp follow up
Trach care per Pulm
recommend every 4 hours suctioning during the day
Patient already has humidified oxygen set up at home. This should be used [id number] if able, but especially at nighttime
Will plan for 3% saline neb treatment once a day
Okay to continue ipratropium/albuterol every 6 hours during the day via nebulizer
Reviewed importance of airway clearance, cough mechanism with patient
Reviewed importance of daily inner cannula removal/cleaning/replacement
Discharge Plan
-
Patient Disposition: Home (Routine Discharge)
Discharge Diagnosis/Procedures: Acute on chornic hypoxic respiratory fialure
mucous plugging of trach
larynx cancer
hld
copd
Condition: Fair
Diet: Other diet
Additional Diets: Tube feeds
Activity: No restrictions
Driving Restrictions: No driving
Activity Restrictions/Additional Instructions:
Presented with shortness of breath, low oxygen sats and mucous plugging of trach. This was exchanged in the ED. With improvement in o2 sats. Evaluated by pulmonary. No indication for bronchoscopy. Recommended trach care instructions which are below.
Able to wean o2 needs to baseline 5l.
cxr
IMPRESSION:
Interval improvement in small pleural effusions. Minor atelectasis at the lung bases. No evidence of pneumonia or congestive heart failure.
Outpatient pulmonary follow up
Outpatient ENT follow up
Outpatient pcp follow up
Referrals:
Jona Mixon DO [Family Provider] -
Additional Discharge Medication Instructions: recommend every 4 hours suctioning during the day
Patient already has humidified oxygen set up at home. This should be used [id number] if able, but especially at nighttime
Will plan for 3% saline neb treatment once a day
Okay to continue ipratropium/albuterol every 6 hours during the day via nebulizer
Reviewed importance of airway clearance, cough mechanism with patient
Reviewed importance of daily inner cannula removal/cleaning/replacement
Prescriptions:
New
ipratropium-albuterol 0.5 mg-3 mg(2.5 mg base)/3 mL Solution For Nebulization
3 ml inhalation R Q4HPRN PRN (Reason: sob/wheezing) 30 Days Qty: 1 0RF
polyethylene glycol 3350 [HealthyLax] 17 gram Powder In Packet
17 g PO DAILYPRN PRN (Reason: constipation) 30 Days Qty: 1 0RF
sennosides-docusate sodium 8.6-50 mg Tablet
1 tab feeding tube BIDPRN PRN (Reason: constipation) 30 Days Qty: 60 0RF
bisacodyl 10 mg Suppository
10 mg MI [id number] PRN (Reason: constipation) 10 Days Qty: 5 0RF
sodium chloride [NebuSal] 3 % Solution For Nebulization
4 ml inhalation R DAILY@1400 30 Days Qty: 30 0RF
Continued
scopolamine base 1 mg over 3 days patch 3 day
1 patch transdermal Q3D PRN (Reason: excessive secretions) Qty: 4 0RF
lorazepam 2 mg/mL concentrate
0.5 mg feeding tube Q8HPRN PRN (Reason: anxiety)
acetaminophen liquid
1 dose feeding tube Q6HPRN PRN (Reason: mild pain)
ipratropium-albuterol 0.5 mg-3 mg(2.5 mg base)/3 mL solution for nebulization
3 ml inhalation R Q6HPRN PRN (Reason: SOB)
guaifenesin 100 mg/5 mL liquid
200 mg feeding tube QID@08,12,16,20
minocycline 50 mg Capsule
100 mg feeding tube Q12 Qty: 19 0RF
sertraline 20 mg/mL concentrate
50 mg feeding tube DAILY
Discharge Orders:
Discharge Patient (As Directed); Ordered 08/09/24
Ordered By: Fahad Mariano
Discharge Date and Time
Print Language: GABONESE
--- NOTE | 2024-08-09 16:25 | VNURNOTE ---
Spoke with patient's daughter Michelle. Plan is to resume [facility]. Patient has outpt ENT appt on Wednesday. This author left message w/ENT updating on new trach size placed. RN Gissell will send patient home with additional supplies, cannulas. This
author sent new Rx for trach to [facility]. Confirmed with Marissa that fax rec'ed and equip can be delivered between Wednesday and Wednesday. [facility] camp maintenance supervisor Yolie updated.
== END 2024-08-09 19:02 | disposition home health service (06) | DRG 205 ==
LOC: IMU 17:41
PROVIDERS: Registered Nurse; ADMITTING PHYSICIAN Hospitalist; ATTENDING PHYSICIAN Hospitalist; CONSULT PHYSICIAN Internal Medicine Critical Care Medicine; EMERGENCY PHYSICIAN Emergency Medicine; FAMILY PHYSICIAN Family Medicine
PROC: 0B21XFZ Change Tracheostomy Device in Trachea, External Approach (ICD-10-PCS; 2024-08-06)
DX: J95.03 Malfunction of tracheostomy stoma (principal); J96.21 Acute and chronic respiratory failure with hypoxia; J98.11 Atelectasis; R64 Cachexia; Z68.1 Body mass index [BMI] 19.9 or less, adult; E78.00 Pure hypercholesterolemia, unspecified; Z66 Do not resuscitate; C32.9 Malignant neoplasm of larynx, unspecified; D63.0 Anemia in neoplastic disease; F17.210 Nicotine dependence, cigarettes, uncomplicated; J44.9 Chronic obstructive pulmonary disease, unspecified; R13.10 Dysphagia, unspecified; F41.9 Anxiety disorder, unspecified; Z79.899 Other long term (current) drug therapy; Z93.1 Gastrostomy status; Z92.21 Personal history of antineoplastic chemotherapy; Z92.3 Personal history of irradiation
CPT/HCPCS: 71045; 80048; 80053; 85025; 85027; 94640; 97163; 99291; 99406

== ENCOUNTER → 2024-10-02 08:40 | Outpatient (REF) | payer OTHER, SELFPAY | LOC: RST 08:40 | PROVIDERS: ATTENDING PHYSICIAN Nurse Practitioner Adult Health; FAMILY PHYSICIAN Family Medicine | DX: R13.12 Dysphagia, oropharyngeal phase (principal) | CPT/HCPCS: 74230; 92611 ==

== ENCOUNTER 2024-10-17 07:37 | Outpatient (RCR) | payer OTHER, SELFPAY | END 2024-10-17 23:59 | disposition home or self-care (01) | LOC: RST 07:37 | PROVIDERS: ATTENDING PHYSICIAN Nurse Practitioner Adult Health; PRIMARYCARE PHYSICIAN Family Medicine | DX: R13.10 Dysphagia, unspecified (principal); C32.9 Malignant neoplasm of larynx, unspecified; Z73.6 Limitation of activities due to disability; Z93.1 Gastrostomy status | CPT/HCPCS: 92526; 92610 ==

== ENCOUNTER 2024-11-10 11:15 | Outpatient (RCR) | payer OTHER, SELFPAY | END 2024-11-10 23:59 | disposition home or self-care (01) | LOC: RST 11:15 | PROVIDERS: ATTENDING PHYSICIAN Nurse Practitioner Adult Health; PRIMARYCARE PHYSICIAN Family Medicine | DX: R13.13 Dysphagia, pharyngeal phase (principal); C76.0 Malignant neoplasm of head, face and neck | CPT/HCPCS: 92526 ==

== ENCOUNTER → 2024-11-21 10:39 | Outpatient (REF) | payer OTHER, SELFPAY | LOC: RAD 10:39 | PROVIDERS: ATTENDING PHYSICIAN Otolaryngology Facial Plastic Surgery; FAMILY PHYSICIAN Family Medicine | DX: R13.12 Dysphagia, oropharyngeal phase (principal) | CPT/HCPCS: 74230; 92611 ==

== ENCOUNTER → 2024-11-30 14:07 | Outpatient (REF) | payer OTHER, SELFPAY | LOC: HWRAD 14:07 | PROVIDERS: ATTENDING PHYSICIAN Nurse Practitioner Adult Health | DX: R05.2 Subacute cough (principal); C32.9 Malignant neoplasm of larynx, unspecified | CPT/HCPCS: 71046 ==

== ENCOUNTER → 2024-12-11 09:42 | Outpatient (REF) | payer OTHER, SELFPAY | LOC: PET 09:42 | PROVIDERS: ATTENDING PHYSICIAN Internal Medicine Hematology & Oncology | DX: C32.2 Malignant neoplasm of subglottis (principal) | CPT/HCPCS: 78815; A9552 ==

== ENCOUNTER → 2025-04-19 11:06 | Outpatient (REF) | payer OTHER, SELFPAY | LOC: PET 11:06 | PROVIDERS: ATTENDING PHYSICIAN Internal Medicine Hematology & Oncology | DX: C32.2 Malignant neoplasm of subglottis (principal) | CPT/HCPCS: 78815; A9552 ==

== ENCOUNTER → 2025-06-20 12:14 | Outpatient (REF) | payer OTHER, SELFPAY ==
[2025-06-20 12:25] VITALS: BP 148/70; BP_SYST 59
[2025-06-20 13:05] VITALS: BP 141/76; BP_SYST 54
[2025-06-20 13:21] VITALS: BP 141/76
== END ==
LOC: RADI 12:14
PROVIDERS: ATTENDING PHYSICIAN Internal Medicine Hematology & Oncology; FAMILY PHYSICIAN Family Medicine
DX: Z45.2 Encounter for adjustment and management of vascular access device (principal); C32.2 Malignant neoplasm of subglottis
CPT/HCPCS: 36590; 77001

== ENCOUNTER → 2025-07-20 07:56 | Outpatient (REF) | payer OTHER, SELFPAY | LOC: HWWDC 07:56 | PROVIDERS: ATTENDING PHYSICIAN Nurse Practitioner Adult Health | DX: Z12.31 Encounter for screening mammogram for malignant neoplasm of breast (principal) | CPT/HCPCS: 77063; 77067 ==

== ENCOUNTER → 2025-07-30 10:29 | Outpatient (REF) | payer OTHER, SELFPAY | LOC: WDC 10:29 | PROVIDERS: ATTENDING PHYSICIAN Nurse Practitioner Adult Health | DX: R92.8 Other abnormal and inconclusive findings on diagnostic imaging of breast (principal) | CPT/HCPCS: 76642 ==